=== PATIENT | male | born 1950 | race Caucasian/White ===

== ENCOUNTER 2018-02-04 22:10 | Inpatient (IN) | payer MEDICARE ==
[2018-02-05 01:45] VITALS: BMI 26.4
[2018-02-05] MEDS ORDERED: Acetaminophen 1,000 MG in Premix Bag 1 BAG IVPB PRN ×2 (01:53→10:30)
[2018-02-05] MEDS ORDERED: Ketorolac Tromethamine 30 MG/ML VIAL IVP PRN (01:54)
[2018-02-05] MEDS: Lactated Ringer's 1,000 ML IV SCH ×2 (02:03→11:56)
[2018-02-05 05:45] LABS: #Eosinphils 0.1 thou/uL (0.0-0.7); #Lymphocytes 0.9 thou/uL (1.20-3.40); #Monocytes 1.4 thou/uL (0.11-0.59); #Neutrophils 11.1 thou/uL (1.40-6.50); %Basophils 0.3 % (0.0-1.0); %Eosinophils 0.6 % (0.0-10.0); %Lymphocytes 6.8 % (21.0-51.0); %Monocytes 10.2 % (0.0-10.0); %Neutrophils 82.2 % (42.0-75.0); Hemoglobin 10.2 g/dL (14.0-18.0); Mean Corpuscular HGB CONC 32.6 g/dL (32.0-36.0); Mean Corpuscular Hemoglobin 27.8 pg (27.0-31.0); Mean Corpuscular Volume 85.2 fL (78.0-98.0); Mean Platelet Volume 5.9 fL (7.4-10.4); Platelet Count 441 thou/uL (130-400); RBC Distribution Width 13.1 % (11.5-14.5); Red Blood Cell (RBC) Count 3.66 mill/uL (4.70-6.10); White Blood Cell (WBC) Count 13.4 thou/uL (4.8-10.8)
[2018-02-05] MEDS ORDERED: Prevnar 13-Val Conj/PF 0.5 ML SYRINGE IM ONE (09:00)
[2018-02-05] MEDS: metroNIDAZOLE 750 MG in Admixture Fee 1 EACH IVPB SCH ×2 (09:28→17:12)
[2018-02-05] MEDS ORDERED: Fentanyl 100 MCG/2 ML VIAL ONE ×3 (09:30→11:12)
[2018-02-05] MEDS ORDERED: Propofol 500 MG/50 ML VIAL ONE (09:33)
[2018-02-05] MEDS ORDERED: Levofloxacin 500 mg/D5W 100 ml Premix Bag ONE (09:41)
[2018-02-05] MEDS ORDERED: metroNIDAZOLE 500 MG/100 ML BAG ONE (09:41)
[2018-02-05] MEDS ORDERED: Midazolam HCl 2 mg/2 ml Vial ONE (09:50)
[2018-02-05] MEDS ORDERED: Bupivacaine HCl 0.5%/Epinephrine 1:200,000/PF 30 ml Vial ONE (10:09)
[2018-02-05] MEDS ORDERED: hydrALAZINE 20 MG/ML VIAL SLOW IVP PRN (10:10)
[2018-02-05] MEDS ORDERED: Lidocaine 2% w/Epinephrine 1:200K 20 ML VIAL ONE (10:10)
[2018-02-05] MEDS ORDERED: Lidocaine 2% PF Inj 2 ML VIAL ONE ×2 (10:11)
[2018-02-05] MEDS ORDERED: Ondansetron ODT 8 MG TAB PO PRN (10:13)
[2018-02-05] MEDS ORDERED: Ondansetron ODT 8 MG TAB SL PRN (10:13)
[2018-02-05] MEDS ORDERED: GoLYTELY 4,000 ml Bottle PO SCH (10:15)
[2018-02-05] MEDS ORDERED: Non-Formulary Item 1 EACH (Albuterol Sulfate [Proair Respiclick] 90 MCG) IH PRN (10:17)
[2018-02-05] MEDS ORDERED: Potassium Bicarbonate/Cit Ac 25 MEQ TAB PO PRN (10:17)
--- NOTE | 2018-02-05 10:18 | HP ---
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 The patient for the past 6 weeks h as suffered anorexia, a 15 pound weight loss, alteration in his bowel habits requiring occasional lax atives. He has never had a colonoscopy. He denies hematochezia. The patient reported to [facility] late yesterday evening. He underwent evaluation noting hemoglobin of 11, white count of 14, BUN 16, creatinine 1, sodium 135, potassium 4.3, normal liver function test. He had a CAT sca n of the abdomen and pelvis revealing a large mass, circumferential thickened wall sigmoid colon with involvement of the left groin and involvement of the dome, right dome anterior bladder infiltrated v ersus abutting. The patient was noted to have a mass in his left groin, which is what precipitated h is emergency room visit. The patient was told that he needed to be transferred to [place]. However, the patient did not want to do that. Thus transferred to [facility] for his care. At our facili ty this morning his hemoglobin is 10. CA level was 6. I personally reviewed his CAT scan with the r adiologist, Dr. Potter, revealing the above findings. He does have cholelithiasis in addition. There is no evidence of metastasis. There is subclinical pertinent lymphadenopathy less than 0.5 cm of que stionable significance. ALLERGIES: PENICILLIN. He was told he was allergic to PENICILLIN as a child. He does not know his reaction. He questions this. TOBACCO: None. ALCOHOL: None. MEDICATIONS: Potassium bicarbonate 25 mEq p.r.n., multivitamins daily, fish oil daily, calcium ascor petros daily, Flomax 0.4 mg a day, lisinopril/hydrochlorothiazide, Prinzide 20/12.5 mg a day, Singulair daily, aspirin 81 mg a day, albuterol sulfate 90 mcg a day p.r.n., Advair Diskus inhaler b.i.d. PAST SURGICAL HISTORY: Right inguinal hernia repair when 2 years of age, right shoulder ORIF. PAST MEDICAL HISTORY: Noncontributory except for hypertension and asthma. REVIEW OF SYSTEMS: Ten point noncontributory. FAMILY HISTORY: Noncontributory. Perhaps a grandfather had colon cancer. He is unsure. PHYSICAL EXAMINATION: VITAL SIGNS: Height 5 foot 11, 189 pounds, 26 BMI, 98.4 degrees 85, 93/53. LUNGS: Clear to auscultation. CARDIAC: Regular rate and rhythm without murmur or gallop. ABDOMEN: Soft, nontender, no palpable masses in his left groin, there is a fluctuant tender mass wit h overlying redness consistent with an abscess. EXTREMITIES: Palpable pulses. No ankle edema. LYMPH: No lymphadenopathy in neck, groins, axilla. SKIN: Normal. Sclerae are normal. NEURO: Neurologically intact without focal deficit. LABORATORIES: As noted above. CEA level this hospitalization 6.6. ASSESSMENT AND PLAN: 1. Large sigmoid mass. I have reviewed this with our local radiologist, Dr. Potter. This mass is enh ancing, suspicious for malignancy. It does have inflammatory changes contiguous with the left groin where he has an abscess. This was appreciated clinically. The patient has extension of the sigmoid colon mass to the dome of the bladder on the right, infiltrative versus abutting, difficult to tell. He has a renal cyst. He has gallstones. 2. Cholelithiasis. 3. Renal cyst. 4. History of PENICILLIN allergy, reaction uncertain as noted above. 5. Asthma. 6. Hypertension. 7. No prior history of colonoscopy. PLAN: Recommend incision and drainage left groin abscess now. Would recommend consultation with Uro logy and I have talked to Dr. Watts regarding planning cystoscopy, stent placement and possible help with dealing with the bladder during the resection. We will consult Gastroenterology, Dr. Ocampo, fo r a colonoscopy. Prior we will give him a bowel prep today, keep him on clear liquids planning colon oscopy tomorrow. I have discussed with the patient's who is a surgical nurse and explained the situation to her. It is uncertain whether his gallstones are symptomatic or not. We will discuss th at with him, but today they seem asymptomatic and probably incidental. I have discussed with the pat joanne and his thoroughly the risks of operations and described including infection, bleeding, reo peration, anastomotic leakage, possibility, although remote of a colostomy and the uncertainty of whe ther this is malignancy or inflammatory, but certainly radiological picture suggest inflammatory. If malignant, there is no evidence of metastatic disease. CA level is slightly elevated only 6.6.
[2018-02-05] MEDS ORDERED: Ibuprofen 600 MG TAB PO PRN (10:30)
[2018-02-05] MEDS ORDERED: Acetaminophen 500 MG TAB PO PRN (10:30)
[2018-02-05] MEDS ORDERED: PACU-Morphine 4MG/ML VIAL SLOW IVP PRN (10:40)
[2018-02-05] MEDS ORDERED: HYDROmorphone 2 MG/ML VIAL SLOW IVP PRN (10:40)
[2018-02-05] MEDS ORDERED: Ondansetron HCl/PF 4 MG/2 ML Vial IVP PRN (10:40)
[2018-02-05] MEDS ORDERED: Meperidine HCl/PF 25 MG/ML VIAL SLOW IVP PRN (10:40)
[2018-02-05] MEDS ORDERED: Promethazine HCl 25 MG/ML VIAL IM PRN (10:40)
[2018-02-05] MEDS ORDERED: Promethazine HCl 25 MG/ML VIAL SLOW IVP PRN (10:40)
[2018-02-05] MEDS ORDERED: Morphine Sulfate 2 MG/ML SYRINGE SLOW IVP PRN (10:40)
[2018-02-05] MEDS ORDERED: PROVENTIL INHALER 6.7 G (200 INHALATIONS) INH PRN (10:50)
--- NOTE | 2018-02-05 11:21 | OP ---
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 PROCEDURE: Incision and drainage of deep left lower quadrant abdominal wall abscess. SURGEON: Dr. Yosi Ellison ANESTHESIA: Sedation, local 0.5% Marcaine with epinephrine 30 mL mixed with ____ 10 mL. PROCEDURE: The patient was taken to the operating room where under sedation, his abdomen was clipped of hair, prepared with ChloraPrep, draped in routine fashion. Local anesthetic infiltrated into ski n and subcutaneous tissue. Incision made in left lower quadrant transversely for about 4-5 cm nestor d down skin and subcutaneous tissue, deep fascia draining a thick, purulent foul-smelling purulent ma terial. This wound was irrigated and gauze dressing applied, left open. We will observe it. If he has stool draining from it later he may need an ostomy bag. If, however, it does not, he may need a wound VAC tomorrow.
[2018-02-05] MEDS: traMADol HCl 50 MG TAB PO PRN (12:58)
--- NOTE | 2018-02-05 14:55 | RAD ---
TWO VIEWS CHEST: HISTORY: Colon mass. Preoperative chest radiograph. FINDINGS: PA and lateral views of the chest are obtained. Surgical clips are seen in the left hilar region. The lungs are well aerated. No evidence of acute intrathoracic abnormality is seen. No evidence of effusions, pneumonia, or pneumothorax is seen. Right shoulder surgical screws are in place. IMPRESSION: Unremarkable 2 views chest. POS: [facility]
[2018-02-05] MEDS ORDERED: PHENYLEPHRINE-NS 100 MCG/ML 10 ML SYRINGE ONE (16:47)
[2018-02-05] MEDS ORDERED: PROPOFOL 200 MG/20 ML VIAL ONE (16:47)
[2018-02-05] MEDS ORDERED: Lidocaine 1% PF 5 ML VIAL ONE (16:47)
[2018-02-05] MEDS: Mometasone/Formoterol 120 PUFF INHALER INH SCH (18:27)
[2018-02-05] MEDS ORDERED: SALMETEROL PO SCH (21:00)
[2018-02-05] MEDS ORDERED: FLUTICASONE PO SCH (21:00)
[2018-02-05] MEDS ORDERED: Enoxaparin Sodium 40 MG/0.4 ML SYRINGE SC SCH (21:00)
[2018-02-05] MEDS: Aspirin 81 mg Enteric Coated Tablet PO SCH (22:28)
[2018-02-05] MEDS: Famotidine 20 MG TAB PO SCH (22:28)
[2018-02-05] MEDS: Montelukast Sodium 10 mg Tablet PO SCH (22:29)
[2018-02-05] MEDS: Tamsulosin HCl 0.4 MG CAP PO SCH (22:29)
--- NOTE | 2018-02-05 23:24 | CON ---
DATE OF CONSULTATION: 02/05/2018 Consultation is requested for concern for bladder findings related to abnormal CT scan. HISTORY OF PRESENT ILLNESS: The patient is a 67-year-old male, who 4 weeks ago , had significant constipation and took magnesium citrate and seemed to get back to his relative normal bowel movements, thereafter, but had significant left-sided pain more recently that worsened to the point of being presenting to the ER. He had also just not felt well over the last few days and has had decreased appetite and lost weight recently. Normally has frequency q.2-3 hours, nocturia x3 to 4. He is already on tamsulosin and he does think this helps his urinary flow, but he denies any hesitancy, weak stream, incomplete emptying. He has never had hematuria, infections of the urine, retention, leakage, or stones. PAST MEDICAL HISTORY: Significant for asthma versus chronic obstructive pulmonary disease and hypertension. PAST SURGICAL HISTORY: Includes right inguinal hernia at age 2 and a right shoulder surgery as well as tonsils. ALLERGIES: PENICILLIN. He does not know the reaction, as this was as a kid. MEDICATIONS: Include potassium, multivitamin, fish oil, calcium, Flomax, lisinopril/hydrochlorothiazide, Prinzide/hydrochlorothiazide, Singulair, aspirin 81 mg, albuterol as needed, Advair b.i.d. SOCIAL HISTORY: He quit smoking in 1990 and had a 71-[id number]-[id number] history. He only smokes cigars now. He has wine two or three glasses per week. He has no history of IV drug abuse. REVIEW OF SYSTEMS: Really, he has never had a colonoscopy. He has no chest pain, no shortness of breath, no coughing up anything. No numbness or tingling. He has had normal PSAs and DREs and I was able to review these, as he had the results with him from a PSA standpoint. FAMILY HISTORY: Maybe his grandmother had colon cancer. His mother at 75 of renal failure. Dad at 69 of heart attack, neither of them had cancer. PHYSICAL EXAMINATION: VITAL SIGNS: He has been febrile to 101.9, currently 98.4, blood pressure 93/53 , satting 92% on room air. He is in no apparent distress. He is alert and oriented. NECK: He has no JVD or scleral icterus. HEART: Regular rate and rhythm. No murmurs, gallops, or rubs. LUNGS: Clear to auscultation bilaterally. ABDOMEN: Soft, mildly distended, some tenderness in the left lower quadrant and a bandage in the left lower quadrant inguinal area noted, which was not removed. +umbilical hernia noted EXTREMITIES: He had no lower extremity edema. GENITOURINARY: His testes were descended bilaterally without masses. Phallus was circumcised without lesions. He did have condylomatous lesions at the left base of the shaft and right condylomatous lesions noted in the base of the penis , but not really on the shaft. He said he has had these removed multiple times. He has not used creams before. DIGITAL RECTAL EXAM: Revealed an enlarged smooth prostate without nodules, induration, or sidewall fixation. LABORATORY VALUES: Reveal a white count of 13.4, anemia of 10.2 and 31.2. CEA of 6.60. BUN and creatinine are 16 and 1.02. PSAs were 4.7 from 12/11/2017 with percent free of 39.1; 06/01/2016, it was 4.8; 07/29/2014, it was 3.4. CT scan from 02/04/2018 with contrast reviewed personally revealed no hydro, stones, or renal masses. There is bladder thickening near the left lateral dome that extended to the groin collection, but no obvious fistulous tract or air in the bladder noted. He had a huge prostate and then the concern for a sigmoid mass and the collection at the left inguinal region. ASSESSMENT AND PLAN: In assessment, we have a 67-year-old male with concern for inflammatory changes versus mass in the bladder, as well as concern for a sigmoid mass with associated abscess collection, drained by Dr. Ellison already. He also has significant benign prostatic hyperplasia and an enlarged prostate with elevated PSA that is almost definitively related to that as opposed to any concerns for cancer. I ensured he is on tamsulosin and I increased it to twice a day. Knowing that I will have to instrument around the prostate, I am going to start finasteride for the short term and potentially long-term as well. I discussed with Dr. Ellison placing a ureteral stent for his planned sigmoid resection and that if there is any concern that the bladder needed to be resected, I would be available to help. At this point, after reviewing the CAT scan, I am not concerned that the significant portion of the bladder would have to be removed, but this is possible. I am more concerned that he could have a separate bladder mass that would need resection. I can determine this when I place the stent, but hold off on actual transurethral resection in case that portion of the bladder has to be removed during the bowel surgery anyway. Otherwise, a separate procedure for transurethral resection can be done at a later time. TANK
[2018-02-06] MEDS: metroNIDAZOLE 750 MG in Admixture Fee 1 EACH IVPB SCH ×3 (00:09→17:15)
[2018-02-06] MEDS: Lactated Ringer's 1,000 ML IV SCH ×3 (00:09→17:15)
--- NOTE | 2018-02-06 02:23 | CON ---
DATE OF CONSULTATION: 02/05/2018 REASON FOR CONSULTATION: Abnormal GI imaging. CONSULTING PHYSICIAN: Dr. Yosi Ellison. HISTORY OF PRESENT ILLNESS: The patient is a 67-year-old male with past medical history of hypertens ion and asthma presenting with complaints of increased lethargy, anorexia, weight loss and change in bowel habits. He states that he was in his usual state of health until approximately 4-5 weeks ago w hen he began to notice a bulge within the left groin that was initially thought to be an inguinal her martín. Rather than seeing a doctor about this condition, he did not and it worsened over again the las t 4-5 weeks, associated with this was increased anorexia with decreased appetite and change in his ta valerio making food relatively unpalatable as well as a 15-pound weight loss during the same time. He al so notes a change in his bowel habits going from having soft 1-2 bowel movements every day to having approximately 1 bowel movement every 3-4 days that was harder in consistency. With a constellation o f these symptoms, it prompted him to be evaluated by his PCP, but his next appointment with his PCP w as not until February which then prompted him to go to the [facility] at [facility] for further evaluation. While at the Urgent Care Center, he had a CT scan of the abdomen and pelv is performed which showed the presence of a large sigmoid mass with circumferential wall thickening o f the sigmoid colon and involvement of the left groin and dome of the bladder. Given the extensive n ature of this mass, he was subsequently transferred to [facility] for further evaluation. A t the current time, the patient states that he is doing well without significant problems, but does h ave mild left lower quadrant abdominal pain associated with his left groin mass. Currently, he denie s any nausea, vomiting, fevers, chills, GI bleeding, dysphagia, or odynophagia. REVIEW OF SYSTEMS: A 10-category review of systems was obtained with all responses negative except f or the pertinent positives as listed in the HPI. PAST MEDICAL HISTORY: Hypertension, asthma. PAST SURGICAL HISTORY: Right inguinal hernia repair when 2 years old, right shoulder ORIF. FAMILY HISTORY: Possible colonic cancer in his grandfather. No history of colon cancer or polyps in first degree relatives. SOCIAL HISTORY: Denies any tobacco, alcohol or illicit drug use. OUTPATIENT MEDICATIONS: Reviewed. ALLERGIES: PENICILLIN. PHYSICAL EXAMINATION: VITAL SIGNS: Temperature 99.2, pulse 95, blood pressure 100/62, respiratory rate 16, satting 93% on room air. GENERAL: Patient is lying in bed in no acute distress. Alert and oriented x4. HEENT: Normocephalic, atraumatic. NECK: Supple. No JVD or scleral icterus noted. CARDIOVASCULAR: Regular rate and rhythm with no discernible murmurs, gallops or rubs. RESPIRATORY: Mild inspiratory wheezes were heard in all lung jackson with resistance to air flow also auscultated as well. No discernible crackles. ABDOMEN: Normoactive bowel sounds, soft, nondistended. Tenderness to palpation in the left lower qu adrant. EXTREMITIES: No cyanosis, clubbing or edema. LABORATORY DATA: CBC with a white blood cell count of 13.4, hemoglobin 10.2, hematocrit 31.2 and jo ann telets 441. CEA antigen elevated at 6.6. IMAGING DATA: Review of the CT scan performed at [facility] revealed a large mass which along with circumferential wall thickening of the sigmoid colon involving the left groin and dome of the bladder. ASSESSMENT AND PLAN: The patient is a 67-year-old male with past medical history of hypertension and asthma presenting with abnormal GI imaging. Abnormal gastrointestinal imaging. The patient is presenting with a history of increased lethargy, anorexia, decreased physical activity tolerance and change in bowel habits that has been slowly worsening over the last 4-5 weeks. Upon e valuation in the Urgent Care Center in [facility], he was noted to have a large mass with in the sigmoid colon that was affecting the left groin/anterior abdominal wall as well as possible in volvement of the dome of the bladder. He was subsequently transferred to [facility] for fur ther evaluation. At this point, given his elevated CEA and imaging findings on CT, this is highly shaikh spicious for a colonic malignancy and will need colonoscopy for further evaluation/diagnosis. RECOMMENDATIONS: 1. We will place the patient on a clear liquid diet today with plans to make him n.p.o. at midnight in preparation for the procedure tomorrow. 2. We will plan for colonoscopy tomorrow morning for evaluation of the sigmoid colon mass. 3. Further recommendations to follow colonoscopy. We will continue to follow. Please call with any questions.
[2018-02-06 06:23] LABS: #Eosinphils 0.2 thou/uL (0.0-0.7); #Lymphocytes 0.8 thou/uL (1.20-3.40); #Neutrophils 7.8 thou/uL (1.40-6.50); %Basophils 0.3 % (0.0-1.0); %Eosinophils 2.3 % (0.0-10.0); %Lymphocytes 8.3 % (21.0-51.0); %Monocytes 9.9 % (0.0-10.0); %Neutrophils 79.2 % (42.0-75.0); Hemoglobin 9.2 g/dL (14.0-18.0); Mean Corpuscular HGB CONC 32.3 g/dL (32.0-36.0); Mean Corpuscular Hemoglobin 27.6 pg (27.0-31.0); Mean Corpuscular Volume 85.6 fL (78.0-98.0); Mean Platelet Volume 6.3 fL (7.4-10.4); Platelet Count 415 thou/uL (130-400); RBC Distribution Width 13.1 % (11.5-14.5); Red Blood Cell (RBC) Count 3.32 mill/uL (4.70-6.10); White Blood Cell (WBC) Count 9.8 thou/uL (4.8-10.8)
[2018-02-06 06:44] LABS: ALT (SGPT) 48 U/L (8-55); AST (SGOT) 21 U/L (5-34); Albumin 2.9 g/dL (3.4-4.8); Alkaline Phosphatase 60 U/L (40-150); Anion Gap 11 mmol/L (10-20); BUN (Urea Nitrogen) 24 mg/dL (8.4-25.7); Bilirubin, Total 0.6 mg/dL (0.2-1.2); Calc. Creatinine Clearance 79 mL/min (70-130); Calcium 8.6 mg/dL (7.8-10.44); Carbon Dioxide 27 mmol/L (23-31); Chloride 102 mmol/L (98-107); Estimated GFR-MDRD 67; Globulin 2.4 g/dL (2.4-3.5); Glucose 132 mg/dL (80-115); Potassium 3.8 mmol/L (3.5-5.1); Protein, Total 5.3 g/dL (5.8-8.1); Sodium 136 mmol/L (136-145)
[2018-02-06 07:21] LABS: Bacteria/HPF None Seen HPF (None Seen); Hyaline Casts/LPF 7-10 HYALINE CAST LPF (0-3 Hyaline); Pathc Cast-AUWi Flag 0.72 (0-2.49); RBC/HPF 0-3 HPF (0-3); Squamous Epithelial None Seen HPF (0-3)
[2018-02-06] MEDS: Mometasone/Formoterol 120 PUFF INHALER INH SCH ×2 (07:44→18:58)
[2018-02-06] MEDS ORDERED: Tamsulosin HCl 0.4 MG CAP PO SCH (09:00)
[2018-02-06] MEDS ORDERED: ASCORBATE CALCIUM 500 MG PO SCH (09:00)
[2018-02-06] MEDS: Tamsulosin HCl 0.4 MG CAP PO SCH ×2 (09:18→21:10)
[2018-02-06] MEDS: Finasteride 5 MG TAB PO SCH (09:18)
[2018-02-06] MEDS: Famotidine 20 MG TAB PO SCH ×2 (09:19→21:07)
[2018-02-06] MEDS: Erythromycin Base 250 MG TAB PO SCH ×2 (09:20→14:03)
[2018-02-06] MEDS: Neomycin 500 mg Tablet PO SCH ×2 (09:20→16:11)
[2018-02-06] MEDS: Multivitamin W/ Minerals 1 TAB PO SCH (09:20)
--- NOTE | 2018-02-06 09:37 | EKG ---
Test Reason : PROP Blood Pressure : / mmHG Vent. Rate : 082 BPM Atrial Rate : 082 BPM P-R Int : 120 ms QRS Dur : 094 ms QT Int : 374 ms P-R-T Axes : 070 001 052 degrees QTc Int : 436 ms Normal sinus rhythm Normal ECG No previous ECGs available Confirmed by WALDEMAR JIMENEZ ([id number]) on 02/06/2018 9:37:02 AM Referred By: CAITIE Confirmed By:WALDEMAR JIMENEZ
--- NOTE | 2018-02-06 11:30 | PRG ---
DATE OF SERVICE: 02/06/2018 HISTORY OF PRESENT ILLNESS: Levy Mcginnis is a 67-year-old male patient doing well today. He has no new complaints. He has almost completed his bowel prep for his colonoscopy today. Dr. Watts has s een him. PHYSICAL EXAMINATION: VITAL SIGNS: Temperature 99.9 degrees, 80, 108/66. LUNGS: Clear to auscultation. CARDIAC: Regular rate and rhythm without murmur or gallop. ABDOMEN: Soft, nontender, slightly distended and tympanitic from his bowel prep. He has been having some liquid slightly brown flecked stool. Dressing left lower quadrant is relatively dry. ASSESSMENT AND PLAN: 1. Colocutaneous fistula with abscess, status post incision and drainage yesterday. It is not drain ing a lot. 2. Colon mass undergoing colonoscopy today. Colon mass contiguous or invading the bladder. PLAN: Cystoscopy and ureteral stent placement tomorrow with Dr. Watts and laparotomy, colon resecti on plus or minus colostomy or protective diverting ileostomy if necessary indicated procedures. He m ay need a central line. We will hold his Lovenox tonight to make it safe for him to have an epidural in the morning. Continue SCDs. Await colonoscopy. Neomycin and erythromycin p.o., complete his anirudh wel prep for tomorrow.
[2018-02-06] MEDS ORDERED: Promethazine HCl 25 MG/ML VIAL IM PRN (16:28)
[2018-02-06] MEDS ORDERED: Promethazine HCl 25 MG/ML VIAL SLOW IVP PRN (16:28)
[2018-02-06] MEDS ORDERED: PHENYLEPHRINE-NS 100 MCG/ML 10 ML SYRINGE ONE (16:51)
[2018-02-06] MEDS ORDERED: Lidocaine 1% PF 5 ML VIAL ONE (16:51)
[2018-02-06] MEDS ORDERED: ePHEDrine/0.9% NaCl/PF SYRINGE 50 mg/10 ml ONE (16:51)
[2018-02-06] MEDS ORDERED: PROPOFOL 200 MG/20 ML VIAL ONE (16:51)
[2018-02-06] MEDS: Aspirin 81 mg Enteric Coated Tablet PO SCH (21:08)
[2018-02-06] MEDS: Polyethylene Glycol 3350 17 GM Packet PO SCH (21:08)
[2018-02-06] MEDS: Enoxaparin Sodium 40 MG/0.4 ML SYRINGE SC SCH (21:09)
[2018-02-06] MEDS: Montelukast Sodium 10 mg Tablet PO SCH (21:09)
[2018-02-06] MEDS: traMADol HCl 50 MG TAB PO PRN (21:10)
--- NOTE | 2018-02-06 21:46 | OP ---
DATE OF PROCEDURE: 02/06/2018 PROCEDURE: Colonoscopy with snare polypectomy and biopsy and submucosal injection of tattoo. PREOPERATIVE DIAGNOSIS: Abnormal imaging of the colon. PROCEDURE IN DETAIL: Informed consent was obtained from the patient. He was sedated with total intr avenous anesthesia. The rectal exam was performed and revealed a significant amount of stool in the rectal vault, which was disimpacted. The colonoscope was advanced to the cecum without significant d ifficulty. The ileocecal valve and appendiceal orifice were clearly identified. There was solid sto ol in the sigmoid colon and rectum and scattered throughout the proximal colon as well. There was a large mass in the sigmoid colon at 35 cm, which was circumferential and necrotic. Multiple biopsies were obtained. There was a 2 cm flat smooth patch with surrounding puckering or dimpling of the venkata cent folds. Biopsies were obtained to rule out a second malignancy or neoplastic process in this are a. A tattoo was placed on either side adjacent to the lesion. This lesion would not be endoscopical ly resectable. There was severe diverticulosis throughout the colon. There was a 1.2 cm pedunculate d polyp in the distal sigmoid at 19 cm, which was removed by hot snare. A 5 mm polyp was removed fro m the distal rectum by hot snare. Retroflexed views in the rectum were incomplete due to stool in th e rectal vault that still could not be cleared; however, half of the rectum at least was normal. IMPRESSION: 1. Large mass in the sigmoid at 35 cm, which was circumferential and necrotic. Multiple biopsies ob tained. 2. A 2 cm flat smooth patch with surrounding puckering of the adjacent folds was biopsied to rule ou t a second malignancy or neoplastic process in the proximal to mid transverse colon. Tattoos were pl aced adjacent on either side of the lesion. 3. Severe diverticulosis with poor prep in the rectum and sigmoid colon scattered throughout the col on. 4. A 5 mm polyp in the rectum removed by hot snare. 5. A 1.2 cm pedunculated distal sigmoid polyp removed by hot snare at 19 cm. RECOMMENDATIONS: 1. Clear liquids. 2. Await histopathology. 3. Given the poor prep in areas, a completion colonoscopy should be performed in the future after re section of the malignancy. In the meantime, I would wait on the biopsies prior to surgery.
[2018-02-07] MEDS: metroNIDAZOLE 750 MG in Admixture Fee 1 EACH IVPB SCH ×3 (01:41→16:57)
[2018-02-07] MEDS: Mometasone/Formoterol 120 PUFF INHALER INH SCH ×2 (06:50→18:36)
[2018-02-07] MEDS: traMADol HCl 50 MG TAB PO PRN ×3 (07:10→21:57)
[2018-02-07] MEDS: Polyethylene Glycol 3350 17 GM Packet PO SCH ×2 (08:45→20:51)
[2018-02-07] MEDS: Finasteride 5 MG TAB PO SCH (08:46)
[2018-02-07] MEDS: Famotidine 20 MG TAB PO SCH ×2 (08:47→20:50)
[2018-02-07] MEDS: Tamsulosin HCl 0.4 MG CAP PO SCH ×2 (08:47→20:50)
[2018-02-07] MEDS: Multivitamin W/ Minerals 1 TAB PO SCH (08:47)
--- NOTE | 2018-02-07 11:44 | PRG ---
DATE OF SERVICE: 02/07/2018 Ms. Mcginnis is doing well today. Dr. Mesa performed a colonoscopy years today revealing the 90% obst ructive mass visibly endoscopically consistent with malignancy. With his high grade obstruction I wi ll keep him on liquids. We will ask Dietary to see him regarding high protein supplements considerin g his lactose intolerance. I have asked his to bring in a protein liquid supplements at home. The patient has been suffering anorexia and is complacent with his liquid diet. In addition, I have ordered this to maintain some degree of bowel prep. Today is Monday. Plan Monday surgery. I hav e discussed with Dr. Watts. We will plan laparotomy, epidural general anesthesia, sigmoid colon res ection, bladder interventions as indicated. CAT scan revealed cholelithiasis, but the patient is asy mptomatic and will not address that. We will await biopsies from his transverse colon area of concer n and make appropriate decisions. I have discussed this extensively with the patient's and the patient and questions answered. I have reordered Lovenox for today. We will hold that tomorrow nigh t considering his epidural Monday morning. LUNGS: Clear to auscultation. CARDIAC: Regular rate and rhythm without murmur or gallop. ABDOMEN: Soft, nondistended. Umbilical hernia present. Wound VAC left groin from abscess drain.
--- NOTE | 2018-02-07 11:51 | PRG ---
DATE OF SERVICE: 02/07/2018 SUBJECTIVE: The patient is sleeping comfortable and easily awakened. He is feeling otherwise okay a nd has no complaints. We discussed I started him on the tamsulosin and finasteride related to his pr ostate. PHYSICAL EXAMINATION: VITAL SIGNS: He has been afebrile with a T-max of 98.9, satting 94% on room air. Blood pressure has been stable. His output has not been measured. GENERAL: On exam he is sleeping comfortably in the bed in no distress. Cytology came back as benign showing only inflammatory changes from the urine. ASSESSMENT AND PLAN: We have a 67-year-old male with a sigmoid mass and now concern after a colonosc opy for a transverse colon mass as well and for this reason, the procedure was delayed in order to wa it for this path as that may be a second resection that would be required. I reviewed this with Dr. Ellison and will plan for surgery on Monday. I reviewed this with the patient and he is understanding and in agreement. We will plan for cystoscopy, ureteral stent placement on the left for intraoperat anabel aid for his bowel resection and I will be available to help if there are any concerns regarding t he bladder.
--- NOTE | 2018-02-07 11:55 | PRG ---
DATE OF SERVICE: 02/06/2018 Patient was just about to have his colonoscopy when I saw him and reviewed the plan for me placing a stent prior to Dr. Ellison's procedure and then potentially helping with any concern related to a blad ajay repair that might be necessary. I then reviewed this with his as well and answered all of h er questions. We reviewed how the CT scan shows a definite inflammation, which could represent eithe r a mass or inflammatory changes from the exterior, given that this is also the area of inflammation and infection that tracks to the groin and how I would anticipate looking in the bladder to evaluate this area, and if it simply looks like inflammation, just place a stent and monitor. If there is any concern for a primary bladder lesion, then I would let Dr. Ellison proceed with his part and determin e whether there was any need for resection of the bladder, and of course include this portion as well at that time. Otherwise, further transurethral procedure could be done after he has healed from his bowel surgery. His white count came down to 9.8. His creatinine has been good at 1.09 and a urinalysis showed infla mmation only, no bacteria, no red blood cells; however, this was taken on antibiotics, as he has been getting Flagyl and Levaquin at this time. Cytology is pending. I will continue to follow along.
[2018-02-07] MEDS: Ondansetron ODT 4 MG TAB PO PRN (14:32)
--- NOTE | 2018-02-07 16:22 | PQF ---
DINA DIXON RICHARD D MD [id number] [facility] B- [id number] CLINICAL DOCUMENTATION IMPROVEMENT CLARIFICATION FORM: ICD-10 Updated PLEASE DO AN ADDENDUM TO THE PROGRESS NOTE WITH ANY DOCUMENTATION UPDATES OR ADDITIONS AND CARRY THROUGH TO DC SUMMARY. THANK YOU. Date: 02/07/2018 ATTN: DR. BLOOD Please exercise your independent, professional judgment in responding to the clarification form. Clinical indicators are provided on the bottom of this form for your review Please check appropriate box(s): [ ] Protein Calorie Malnutrition: [ ] Mild [ ] Moderate [ ] Other Malnutrition (please specify) __ [ ] Underweight without malnutrition [ ] Other diagnosis [ ] Unable to determine In addition, please specify: Present on Admission (POA): [ ] Yes [ ] No [ ] Unable to determine CLINICAL INDICATORS - SIGNS / SYMPTOMS / LABS Two or More of the Following: Unintentional Insufficient Energy Intake--> H&P 6 weeks has suffered anorexia Weight Loss--> -7.4 % over past ~6 weeks per 02/07 RD note, 15# weight loss per H&P RISK FACTORS Change in appetite / nausea / vomiting / diarrhea--> colon mass, decreased appetite, weight loss H&P Inability to consume adequate caloric intake --> 02/07 NPO per orders TREATMENT: Dietary consult 02/07 per orders Nutritional supplements--> Ensure TID 02/06 per orders Moderate Malnutrition (in acute illness) Energy Intake: <75% of estimated energy requirement for > 7 days Weight Loss: 1-2%/1 week; 5%/ 1 month; 7.5%/3 months Other: mild body fat loss; mild muscle mass loss; mild fluid accumulation; Severe Malnutrition (in acute illness) Energy Intake: < 50% of estimated energy requirement for > 5 days Weight Loss: >1-2%/1 week; >5%/1 month; >7.5%/3 months Other: moderate body fat loss; moderate muscle mass loss; moderate- severe fluid accumulation; measurably reduced size painter strength Moderate Malnutrition (in chronic illness) Energy Intake: <75% of estimated energy requirement for >1 month Weight Loss: 5%/1 month; 7.5%/3 months; 10%/6 months; 20%/1 year Other: mild body fat loss; mild muscle mass loss; mild fluid accumulation Severe Malnutrition (in chronic illness) Energy Intake: <75% of estimated energy requirement for >1 month Weight Loss: >5%/1 month; >7.5%/3 months; >10%/6 months; >20%/1 year Other: severe body fat loss; severe muscle mass loss; severe fluid accumulation ; measurably reduced size painter strength THANK YOU, GANESH (This form is maintained as a part of the permanent medical record) 2015 [employer] All Rights Reserved Ganesh Deluca RN, BSN, CCDS [email or web address] [phone] MTDD
--- NOTE | 2018-02-07 18:41 | PRG ---
DATE OF SERVICE: 02/07/2018 REASON FOR CONSULTATION: Abnormal GI imaging, probable colonic malignancy. SUBJECTIVE: The patient underwent colonoscopy yesterday with no immediate perioperative events. The colonoscopy showed a lesion within the sigmoid colon consistent with probable malignancy; however, t here was one area within the transverse colon that showed smoothness of the colonic mucosa with loss of haustra and a focal area concerning for another disease process. Biopsies for both are pending at this time. Today, the patient states that he is doing well with no acute events or problems overnight. Currentl y, denies any nausea, vomiting, fevers, chills, GI bleeding, dysphagia or odynophagia. OBJECTIVE: VITAL SIGNS: Temperature 98.1, pulse 75, blood pressure 129/82, respiratory rate 16, satting 95% on room air. GENERAL: Patient is lying in bed in no acute distress. Alert and oriented x4. CARDIOVASCULAR: Regular rate and rhythm. LUNGS: Clear to auscultation bilaterally. ABDOMEN: Normoactive bowel sounds, soft, nondistended. Tenderness to palpation in the left lower qu adrant. EXTREMITIES: No cyanosis, clubbing or edema. LABORATORY DATA: No current studies are available for review. IMAGING DATA: Colonoscopy performed on February 06, 2018 with the findings as described above in the subjective. ASSESSMENT AND PLAN: The patient is a 67-year-old male with past medical history of hypertension and asthma presenting with abnormal GI imaging and colonoscopy findings consistent with a colonic malign leann. Abnormal GI imaging/colonic malignancy. The patient is presenting with a 4-week history of increased lethargy, anorexia, decreased physical activity tolerance and change in bowel habits that culminated in the patient being seen [facility] with imaging consistent with a large mass in the sig moid colon. Patient underwent colonoscopy on 02/06/2018 with the finding of a large circumferential near obstructive mass within the sigmoid colon as well as an area within the transverse colon concern ing for malignancy. At this point, biopsies are pending with the plan for patient to undergo s urgery on Monday after the results of the biopsies are known. RECOMMENDATIONS: 1. Would recommend following up on biopsy results as this could determine extensive resection. 2. Defer to General Surgery Service as timing for surgical resection of the sigmoid mass. 3. Pain control per Primary team. At this time, surgical resection is the definitive modality of choice. We have nothing further to of leslie. We will sign off at this time. Please call with any questions.
[2018-02-07] MEDS: Aspirin 81 mg Enteric Coated Tablet PO SCH (20:49)
[2018-02-07] MEDS: Enoxaparin Sodium 40 MG/0.4 ML SYRINGE SC SCH (20:49)
[2018-02-07] MEDS: Montelukast Sodium 10 mg Tablet PO SCH (20:50)
[2018-02-08] MEDS: metroNIDAZOLE 750 MG in Admixture Fee 1 EACH IVPB SCH ×3 (00:45→17:23)
[2018-02-08] MEDS: Ondansetron ODT 4 MG TAB PO PRN (03:42)
[2018-02-08] MEDS: Mometasone/Formoterol 120 PUFF INHALER INH SCH ×2 (06:17→17:57)
[2018-02-08] MEDS: Multivitamin W/ Minerals 1 TAB PO SCH (09:09)
[2018-02-08] MEDS: Finasteride 5 MG TAB PO SCH (09:10)
[2018-02-08] MEDS: Famotidine 20 MG TAB PO SCH ×2 (09:10→20:53)
[2018-02-08] MEDS: Tamsulosin HCl 0.4 MG CAP PO SCH ×2 (09:11→20:53)
[2018-02-08] MEDS: Polyethylene Glycol 3350 17 GM Packet PO SCH ×2 (09:13→20:55)
[2018-02-08] MEDS: traMADol HCl 50 MG TAB PO PRN (09:39)
[2018-02-08] MEDS: Ondansetron HCl/PF 4 MG/2 ML Vial IVP PRN ×2 (10:24→15:33)
--- NOTE | 2018-02-08 11:33 | PQF ---
DINA DIXON RICHARD D MD [id number] [facility] B- [id number] [id number] CLINICAL DOCUMENTATION IMPROVEMENT CLARIFICATION FORM: ICD-10 Updated PLEASE DO AN ADDENDUM TO THE PROGRESS NOTE WITH ANY DOCUMENTATION UPDATES OR ADDITIONS AND CARRY THROUGH TO DC SUMMARY. THANK YOU. Date: 02/08/18 ATTN: Dr. Ellison Please exercise your independent, professional judgment in responding to the clarification form. Clinical indicators are provided on the bottom of this form for your review Please check appropriate box(s): [ ] Protein Calorie Malnutrition: [ ] Mild [ ] Moderate [ ] Other Malnutrition (please specify) __ [ ] Underweight without malnutrition [ ] Other diagnosis [ ] Unable to determine In addition, please specify: Present on Admission (POA): [ ] Yes [ ] No [ ] Unable to determine CLINICAL INDICATORS - SIGNS / SYMPTOMS / LABS Two or More of the Following: Unintentional Insufficient Energy Intake--> H&P 6 weeks has suffered anorexia Weight Loss--> -7.4 % over past ~6 weeks per 02/07 RD note, 15# weight loss per H&P RISK FACTORS Change in appetite / nausea / vomiting / diarrhea--> colon mass, decreased appetite, weight loss H&P Inability to consume adequate caloric intake --> 02/07 NPO PER ORDERS TREATMENT: Dietary consult 02/07 per orders Nutritional supplements--> Ensure TID 02/06 per orders Thank you, Sophie Moderate Malnutrition (in acute illness) Energy Intake: <75% of estimated energy requirement for > 7 days Weight Loss: 1-2%/1 week; 5%/ 1 month; 7.5%/3 months Other: mild body fat loss; mild muscle mass loss; mild fluid accumulation; Severe Malnutrition (in acute illness) Energy Intake: < 50% of estimated energy requirement for > 5 days Weight Loss: >1-2%/1 week; >5%/1 month; >7.5%/3 months Other: moderate body fat loss; moderate muscle mass loss; moderate- severe fluid accumulation; measurably reduced enrollment services dean strength Moderate Malnutrition (in chronic illness) Energy Intake: <75% of estimated energy requirement for >1 month Weight Loss: 5%/1 month; 7.5%/3 months; 10%/6 months; 20%/1 year Other: mild body fat loss; mild muscle mass loss; mild fluid accumulation Severe Malnutrition (in chronic illness) Energy Intake: <75% of estimated energy requirement for >1 month Weight Loss: >5%/1 month; >7.5%/3 months; >10%/6 months; >20%/1 year Other: severe body fat loss; severe muscle mass loss; severe fluid accumulation ; measurably reduced enrollment services dean strength (This form is maintained as a part of the permanent medical record) 2014 [employer]. All Rights Reserved Sophie Deluca RN, BSN, CCDS [email or web address]
[2018-02-08] MEDS ORDERED: Magnesium Citrate 300 ML BOT PO SCH ×3 (13:15→19:00)
[2018-02-08] MEDS ORDERED: Enoxaparin Sodium 40 MG/0.4 ML SYRINGE SC SCH (13:30)
[2018-02-08] MEDS: Erythromycin Base 250 MG TAB PO SCH ×2 (16:30→20:54)
[2018-02-08] MEDS: Neomycin 500 mg Tablet PO SCH ×2 (16:31→21:00)
[2018-02-08] MEDS ORDERED: Promethazine HCl 25 MG/ML VIAL IM PRN (19:51)
[2018-02-08] MEDS: Montelukast Sodium 10 mg Tablet PO SCH (20:53)
[2018-02-08] MEDS: Aspirin 81 mg Enteric Coated Tablet PO SCH (20:54)
[2018-02-08] MEDS: Lactated Ringer's 1,000 ML IV SCH (20:55)
--- NOTE | 2018-02-08 21:09 | PRG ---
DATE OF SERVICE: 02/08/2018 SUBJECTIVE: Levy Mcginnis is doing well today. His Lovenox is being given early afternoon instead o f night to prepare for epidural tomorrow. Patient does not have any new complaints. He has had some bloating for magnesium citrate ordered. Neomycin, erythromycin, bowel prep have also been ordered. Patient's pathology report is returned. I have talked to Dr. Aguilera regarding this. Patient has a tubular adenoma in the proximal transverse colon/mid transverse colon. There was no dysplasia. Pat ient's biopsy of his sigmoid colon distal to the mass revealed a villous tumor with high grade dyspla yevgeniy, large intestinal tumor mass sigmoid reveals the patient's wound VAC in his left groin is doing w ell, has not had to be changed. It has not had enteric drainage anticipated. OBJECTIVE: LUNGS: Clear to auscultation. CARDIAC: Regular rate and rhythm without murmur or gallop. ABDOMEN: Soft and nontender. ASSESSMENT AND PLAN: Large sigmoid tumor mass extending to the left groin. CEA is 6.6. CAT scan wi thout evidence of metastasis. He has a colocutaneous fistula. The tumor mass radiologically CAT sca n abuts against the bladder, possibly invading it. We will plan completion of two doses of mag citra te today. Dr. Watts will plan cystoscopy and left ureteral stent placement tomorrow. We will plan laparotomy epidural general anesthesia for colon resection and other procedures indicated regarding t he abdominal wall of the bladder. Dr. Watts is available for that if necessary. Patient has gallstones since his transverse colon lesion may be in the area of the gallbladder. Cons ideration for cholecystectomy can be given. We managed the transverse colon synchronous tubular luis armando hollis without dysplasia remains to be determined based on intraoperative findings. This could be wedge d out or segmentally resected. We will await intraoperative assessment. Consideration of cholecyste ctomy could be given and central line placement is considered.
[2018-02-09] MEDS: Erythromycin Base 250 MG TAB PO SCH ×2 (01:20→09:37)
[2018-02-09] MEDS: metroNIDAZOLE 750 MG in Admixture Fee 1 EACH IVPB SCH ×2 (01:20→09:38)
[2018-02-09] MEDS: Neomycin 500 mg Tablet PO SCH ×2 (05:06→15:06)
[2018-02-09] MEDS: Lactated Ringer's 1,000 ML IV SCH ×3 (05:11→20:42)
[2018-02-09 05:21] LABS: #Eosinphils 0.3 thou/uL (0.0-0.7); #Lymphocytes 0.8 thou/uL (1.20-3.40); #Monocytes 0.7 thou/uL (0.11-0.59); #Neutrophils 5.3 thou/uL (1.40-6.50); %Basophils 0.5 % (0.0-1.0); %Eosinophils 4.2 % (0.0-10.0); %Lymphocytes 11.3 % (21.0-51.0); %Monocytes 9.8 % (0.0-10.0); %Neutrophils 74.2 % (42.0-75.0); Hemoglobin 9.8 g/dL (14.0-18.0); Mean Corpuscular HGB CONC 31.7 g/dL (32.0-36.0); Mean Corpuscular Hemoglobin 27.4 pg (27.0-31.0); Mean Corpuscular Volume 86.4 fL (78.0-98.0); Mean Platelet Volume 6.5 fL (7.4-10.4); Platelet Count 411 thou/uL (130-400); RBC Distribution Width 12.9 % (11.5-14.5); Red Blood Cell (RBC) Count 3.58 mill/uL (4.70-6.10); White Blood Cell (WBC) Count 7.2 thou/uL (4.8-10.8)
[2018-02-09 05:38] LABS: Anion Gap 11 mmol/L (10-20); BUN (Urea Nitrogen) 9 mg/dL (8.4-25.7); Calc. Creatinine Clearance 95 mL/min (70-130); Calcium 8.6 mg/dL (7.8-10.44); Carbon Dioxide 26 mmol/L (23-31); Chloride 106 mmol/L (98-107); Estimated GFR-MDRD 84; Glucose 93 mg/dL (80-115); Potassium 3.6 mmol/L (3.5-5.1); Sodium 139 mmol/L (136-145)
[2018-02-09] MEDS: Mometasone/Formoterol 120 PUFF INHALER INH SCH ×2 (06:49→18:19)
[2018-02-09] MEDS ORDERED: Iothalamate Meglumine 60% 50 ML VIAL FS ONE (07:10)
[2018-02-09] MEDS ORDERED: Fentanyl 250 MCG/5 ML VIAL ONE (07:34)
[2018-02-09] MEDS ORDERED: Midazolam HCl 2 mg/2 ml Vial ONE (07:34)
[2018-02-09] MEDS ORDERED: Ropivacaine 0.2% HCl/PF 20 ML ONE (07:57)
[2018-02-09] MEDS: Famotidine 20 MG TAB PO SCH (09:37)
[2018-02-09] MEDS: Tamsulosin HCl 0.4 MG CAP PO SCH ×2 (09:38→20:00)
[2018-02-09] MEDS: Finasteride 5 MG TAB PO SCH (09:38)
[2018-02-09] MEDS: Polyethylene Glycol 3350 17 GM Packet PO SCH (09:38)
[2018-02-09] MEDS: Multivitamin W/ Minerals 1 TAB PO SCH (09:38)
--- NOTE | 2018-02-09 11:15 | OP ---
DATE OF SERVICE: 02/09/2018 PREOPERATIVE DIAGNOSES: Sigmoid mass, transverse colon mass, bladder inflammation. POSTOPERATIVE DIAGNOSIS: Sigmoid mass, transverse colon mass, no mucosal bladder inflammation noted. SURGEON: Karime Watts M.D. ANESTHESIA: General with endotracheal tube. PROCEDURE: Cystoscopy, insertion of left external ureteral stent. COMPLICATIONS: None, but the prostate was oozing. ESTIMATED BLOOD LOSS: Minimal. SPECIMENS: None. DRAIN REMAINING: Was a 5-Qatari Pollack external catheter secured to the Ross catheter which was a 20-Qatari 2-way. INDICATIONS: The patient is a 67-year-old male who was admitted with abdominal pain and noted to hav e a sigmoid mass. Colonoscopy also identified a transverse colon mass with concerns for a fistula gi lakisha left lower quadrant superficial inflammation. He had already had drainage of this area. He was set up for definitive surgical resection and a discussion was had regarding both the ureteral stent p reoperatively and potential for possible bladder excision depending on the general surgical findings. The patient was brought into the room by Anesthesia, laid on the table in supine position. After rec eiving general anesthetic, his legs placed in lithotomy position and his perineum was prepped and loly ped in sterile fashion. Using a 22-Qatari cystoscope and a 30-degree lens was traversed, there was s ignificant BPH noted. In order to identify the UO's the manipulation from the scope irritated the pr ostate so there was some oozing noted. Other than that, the bladder mucosa was normal in appearance, even in the left upper posterior region and no masses were noted. The left ureteral orifice was tim ntified and intubated with the aid of a wire and the Pollack catheter was then advanced to resistance without difficulty all the way past 30 cm. At this point, the scope was broken apart and removed ca refully leaving the ureteral stent in place and a 20 Qatari Ross was placed to gravity and then secu red to the Ross catheter with silk ties. Dr. Ellison would proceed with the rest of the case.
[2018-02-09] MEDS ORDERED: Promethazine HCl 25 MG/ML VIAL SLOW IVP PRN (12:09)
[2018-02-09] MEDS ORDERED: Ondansetron HCl/PF 4 MG/2 ML Vial IVP PRN ×2 (12:09→12:45)
[2018-02-09] MEDS ORDERED: Promethazine HCl 25 MG/ML VIAL IM PRN ×2 (12:09→12:45)
--- NOTE | 2018-02-09 12:28 | OP ---
DATE OF PROCEDURE: 02/09/2018 PREOPERATIVE DIAGNOSES: High grade 90% obstructing mass sigmoid colon adherent to the left lower amrita drant abdominal wall with colocutaneous fistula, status post incision and drainage. 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 Hyperplastic polyp rectum. Adenoma without dy splasia of proximal transverse colon unresectable endoscopically, cholelithiasis. Colon mass sigmoid , adherent to the bladder. POSTOPERATIVE DIAGNOSES: High grade 90% obstructing mass sigmoid colon adherent to the left lower qu adrant abdominal wall with colocutaneous fistula, status post incision and drainage. Tubulovillous a denoma distal sigmoid colon with high grade dysplasia. Hyperplastic polyp rectum. Adenoma without d ysplasia of proximal transverse colon unresectable endoscopically, cholelithiasis. Sigmoid colon mas s, not adherent to the bladder. PROCEDURES: Dr. Watts first performed cystoscopy, left ureteral stent placement. No abnormality at cystoscopy noted. Laparotomy; mobilization of splenic flexure, transverse colon, right colon and ileum, sigmoid colon. A takedown sigmoid colon adherent to the left lower quadrant abdominal wall from the colocutaneous f istula with partial resection of abdominal wall. Large titanium clips marking the area of tumor adhe rence to the abdominal wall. A 3-0 silk suture marking the abdominal wall adherent area on the sigmo id colon specimen. Silk marking distal rectosigmoid margin. Segmental transverse colon resection of the tattooed area of the nonresectable adenoma. Right colectomy due to demarcation and questionable viability of the right colon. A 33 mm EEA colorectal anastomosis checked under water, no leak. Ile al transverse ileocolic anastomosis stapled 75 MALU. Cholecystectomy. Seprafilm used. Wound VAC ap plication, left lower quadrant abdominal wall wound. Prevena VAC over the incision. SURGEON: Dr. Yosi Ellison ANESTHESIA: General. ESTIMATED BLOOD LOSS: Less 100 mL. A ureteral stent left removed at the end of the procedure. Lumbar epidural per Anesthesia. PROCEDURE: The patient was taken to the operating room where under general anesthesia Dr. Watts per formed cystoscopy and left ureteral stent placement, bladder appeared to be normal. After Dr. Watts completed her portion in the dorsal lithotomy position, abdomen was clipped of hair, prepared with ChloraPrep, draped in routine fashion. Incision was made from the upper abdomen to th e pubis, carried down skin and subcutaneous tissue, midline fascia and abdominal cavity sharply. Nichelle ssly abdominal cavity was normal. The tattooed area at the proximal transverse colon was noted. I c ould not palpate an abnormality grossly. Gastrocolic ligament taken down from the transverse colon, mobilizing the splenic flexure and left colon. Sigmoid colon adherent to the left lower quadrant abd ominal wall taken down. Cautery used to divide the peritoneum and superficial inner layers taking do wn this inflammatory attachments. Left ureter was identified, stent palpated, kept free of harm. Th e sigmoid colon mobilized as well as the distal colon. Mobilization down to the rectosigmoid perform ed keeping the ureters free of harm. At this point, the colon above the obstructive mass was cleared of its mesentery and colon divided with MALU-75 stapler. Mesentery serially divided between clamps a nd LigaSure using 2-0 silk ties and LigaSure for hemostasis. Colon mobilized down to the rectosigmoi d. Rectosigmoid junction divided with a contour stapler and specimen resected and submitted to patho logy labeled as noted above. Colorectal anastomosis performed with a 33 mm EEA stapler technique jo ann cing a pursestring suture in the proximal colon and securing the anvil and completing the anastomosis and checking under water without leak. Anastomosis was reinforced anteriorly interrupted Lembert shaikh ture of 3-0 silk. Good hemostasis noted. Minimal blood loss occurred. Anastomosis was tension free and there was good viability of both the rectum and the proximal colon, left. At this point, the co rosio that had been previously tattooed was opened and after diligent search, I identified an area of t he recent biopsy. I could not really palpate an abnormality except there was some firmness here. I then performed a segmental resection and divided mesentery carefully with the cautery just adjacent t o the colon, as I had suspected this was benign process, but was not resectable endoscopically. This was removed, but the right colon had questionable viability. Thus, a right colectomy was performed. The right colon was mobilized. Duodenum kept free of harm. The ileocolic vessels divided adjacent to the colon using 2-0 silk ties and LigaSure to the terminal ileum which was divided with the MALU s tapler. Specimen submitted to pathology. The ileocolic anastomosis created with two fires of the GI A stapler reinforcing the staple line with interrupted Lembert suture of 3-0 silk. Mesentery closed with 2-0 silk figure of eight. Good anastomosis palpated. All bowel margins were viable. No signif icant spillage occurred. Gloves were changed repeatedly through the case when contaminated. At this point, I could palpate gallstones and as we were in the vicinity of the gallbladder, cholecystectomy was undertaken. Fundus of gallbladder grasped, and the gallbladder was taken down from the gallblad ajay bed using the cautery. Cystic artery and duct identified, clipped with clips, divided, and gallb ladder and stones submitted to Pathology. Good hemostasis ensured with the cautery. Abdominal cavit y thoroughly irrigated. Irrigant evacuated. Good hemostasis noted. As sponge and needle counts wer e correct and all areas of dissection hemostatic, Seprafilm applied after redundant omentum removed u sing the LigaSure. Midline fascia closed with continuous suture of #1 PDS. Skin and subcutaneous ti ssue thoroughly irrigated. Gloves changed. Skin approximated with brandon. Prevena dressing applie d. Left lower quadrant open wound from the colocutaneous fistula was then dressed with a wound VAC. The patient tolerated the procedure well.
[2018-02-09] MEDS ORDERED: Ketorolac Tromethamine 30 MG/ML VIAL IVP PRN (12:41)
[2018-02-09] MEDS ORDERED: Hydrocerin (Eucerin) Cream 120 gm Jar TOP PRN (12:45)
[2018-02-09] MEDS ORDERED: diphenhydrAMINE 50 MG/ML VIAL IVP PRN (12:45)
[2018-02-09] MEDS ORDERED: Naloxone HCl 0.4 mg/ml Vial IV PRN (12:45)
[2018-02-09] MEDS ORDERED: Pantoprazole 40 MG VIAL IVP SCH (12:45)
[2018-02-09] MEDS ORDERED: Naloxone HCl 0.4 mg/ml Vial IVP PRN (12:45)
[2018-02-09] MEDS ORDERED: diphenhydrAMINE 50 MG/ML VIAL IM PRN (12:45)
[2018-02-09] MEDS ORDERED: Promethazine HCl 25 MG SUPP PR PRN (12:45)
[2018-02-09] MEDS ORDERED: diphenhydrAMINE 25 MG CAP PO PRN (12:45)
[2018-02-09] MEDS ORDERED: Zolpidem Tartrate 5 MG TAB PO PRN (12:45)
[2018-02-09] MEDS: Acetaminophen 1,000 MG in Premix Bag 1 BAG IVPB PRN (13:39)
[2018-02-09] MEDS ORDERED: Glycopyrrolate 0.2 MG/ML 5 ML SYRINGE ONE (14:33)
[2018-02-09] MEDS ORDERED: Dexamethasone 20 MG/5 ML VIAL ONE (14:33)
[2018-02-09] MEDS ORDERED: PROPOFOL 200 MG/20 ML VIAL ONE (14:33)
[2018-02-09] MEDS ORDERED: Lidocaine 1% PF 5 ML VIAL ONE (14:33)
[2018-02-09] MEDS: Montelukast Sodium 10 mg Tablet PO SCH (20:00)
[2018-02-10] MEDS: Lactated Ringer's 1,000 ML IV SCH (05:03)
[2018-02-10 05:12] LABS: #Eosinphils 0.1 thou/uL (0.0-0.7); #Lymphocytes 0.8 thou/uL (1.20-3.40); #Monocytes 0.9 thou/uL (0.11-0.59); #Neutrophils 10.4 thou/uL (1.40-6.50); %Basophils 0.2 % (0.0-1.0); %Eosinophils 0.4 % (0.0-10.0); %Lymphocytes 6.5 % (21.0-51.0); %Monocytes 7.7 % (0.0-10.0); %Neutrophils 85.2 % (42.0-75.0); Hemoglobin 9.5 g/dL (14.0-18.0); Mean Corpuscular HGB CONC 31.9 g/dL (32.0-36.0); Mean Corpuscular Hemoglobin 27.5 pg (27.0-31.0); Mean Corpuscular Volume 86.2 fL (78.0-98.0); Mean Platelet Volume 6.4 fL (7.4-10.4); Platelet Count 408 thou/uL (130-400); RBC Distribution Width 13.1 % (11.5-14.5); Red Blood Cell (RBC) Count 3.46 mill/uL (4.70-6.10); White Blood Cell (WBC) Count 12.2 thou/uL (4.8-10.8)
[2018-02-10 05:28] LABS: ALT (SGPT) 51 U/L (8-55); AST (SGOT) 40 U/L (5-34); Albumin 2.5 g/dL (3.4-4.8); Alkaline Phosphatase 40 U/L (40-150); Anion Gap 8 mmol/L (10-20); BUN (Urea Nitrogen) 17 mg/dL (8.4-25.7); Bilirubin, Total 0.4 mg/dL (0.2-1.2); Calc. Creatinine Clearance 81 mL/min (70-130); Carbon Dioxide 27 mmol/L (23-31); Chloride 106 mmol/L (98-107); Estimated GFR-MDRD 69; Glucose 108 mg/dL (80-115); Potassium 4.6 mmol/L (3.5-5.1); Protein, Total 4.5 g/dL (5.8-8.1); Sodium 136 mmol/L (136-145)
[2018-02-10] MEDS: Mometasone/Formoterol 120 PUFF INHALER INH SCH ×2 (07:02→18:48)
[2018-02-10] MEDS: Tamsulosin HCl 0.4 MG CAP PO SCH ×2 (08:41→20:13)
[2018-02-10] MEDS: Multivitamin W/ Minerals 1 TAB PO SCH (08:41)
[2018-02-10] MEDS: Finasteride 5 MG TAB PO SCH (08:41)
[2018-02-10] MEDS: Pantoprazole 40 MG VIAL IVP SCH (08:41)
[2018-02-10] MEDS: D5 1/2 NS w/20 mEq KCL 1,000 ML IV SCH ×3 (10:09→20:55)
--- NOTE | 2018-02-10 10:58 | PRG ---
DATE OF SERVICE: 02/10/2018 SUBJECTIVE: The patient reports that his pain is a little worse today mainly on the right. It is no w postop day #1 from a right hemicolectomy, sigmoid resection and cholecystectomy. He denies nausea or vomiting. He is anxious to get more in his mouth. He states that he has consumed 4 liter bottles of water overnight. PHYSICAL EXAMINATION: VITAL SIGNS: Temperature is 98.2, pulse 74, blood pressure 110/65. He has a Ross catheter in place . GENERAL: He is awake and alert. He has wound VACs on. LABORATORY DATA: White count is 12.2, H&H 9.5 and 29, platelet count 408. His electrolytes are fine . ASSESSMENT: Status post multiple colon surgery and gallbladder removal. PLAN: Ambulate, discontinue Ross, sips of clear liquids.
[2018-02-10] MEDS: Acetaminophen 1,000 MG in Premix Bag 1 BAG IVPB PRN (12:06)
[2018-02-10] MEDS: fentaNYL Citrate/PF 1,250 MCG, Bupivacaine 25 ML in Sodium Chloride 0.9% 250 ML 200 ML EPIDURAL SCH (20:13)
[2018-02-10] MEDS: Montelukast Sodium 10 mg Tablet PO SCH (20:13)
[2018-02-11 05:47] LABS: #Eosinphils 0.3 thou/uL (0.0-0.7); #Lymphocytes 0.6 thou/uL (1.20-3.40); #Monocytes 0.8 thou/uL (0.11-0.59); #Neutrophils 9.9 thou/uL (1.40-6.50); %Basophils 0.2 % (0.0-1.0); %Eosinophils 2.2 % (0.0-10.0); %Monocytes 6.9 % (0.0-10.0); %Neutrophils 85.6 % (42.0-75.0); Hemoglobin 9.4 g/dL (14.0-18.0); Mean Corpuscular HGB CONC 32.1 g/dL (32.0-36.0); Mean Corpuscular Hemoglobin 27.5 pg (27.0-31.0); Mean Corpuscular Volume 85.8 fL (78.0-98.0); Mean Platelet Volume 6.3 fL (7.4-10.4); Platelet Count 372 thou/uL (130-400); RBC Distribution Width 13.7 % (11.5-14.5); Red Blood Cell (RBC) Count 3.42 mill/uL (4.70-6.10); White Blood Cell (WBC) Count 11.5 thou/uL (4.8-10.8)
[2018-02-11 06:06] LABS: ALT (SGPT) 45 U/L (8-55); AST (SGOT) 25 U/L (5-34); Albumin 2.6 g/dL (3.4-4.8); Alkaline Phosphatase 39 U/L (40-150); Anion Gap 6 mmol/L (10-20); BUN (Urea Nitrogen) 11 mg/dL (8.4-25.7); Bilirubin, Total 0.4 mg/dL (0.2-1.2); Calc. Creatinine Clearance 105 mL/min (70-130); Carbon Dioxide 27 mmol/L (23-31); Chloride 107 mmol/L (98-107); Estimated GFR-MDRD Greater than 90; Glucose 124 mg/dL (80-115); Potassium 4.3 mmol/L (3.5-5.1); Protein, Total 4.6 g/dL (5.8-8.1); Sodium 136 mmol/L (136-145)
[2018-02-11] MEDS: D5 1/2 NS w/20 mEq KCL 1,000 ML IV SCH ×2 (07:22→16:36)
[2018-02-11] MEDS: Mometasone/Formoterol 120 PUFF INHALER INH SCH ×2 (07:23→16:37)
[2018-02-11] MEDS: Multivitamin W/ Minerals 1 TAB PO SCH (08:42)
[2018-02-11] MEDS: Finasteride 5 MG TAB PO SCH (08:42)
[2018-02-11] MEDS: Pantoprazole 40 MG VIAL IVP SCH (08:42)
[2018-02-11] MEDS: Tamsulosin HCl 0.4 MG CAP PO SCH ×2 (08:42→20:49)
--- NOTE | 2018-02-11 10:58 | PRG ---
DATE OF SERVICE: 02/11/2018 SUBJECTIVE: The patient states that his pain is better today. He feels better. No nausea or vomiti ng. He is tolerating clear liquids well. He passed a little flatus. PHYSICAL EXAMINATION: VITAL SIGNS: Temperature 98.7, pulse 77, blood pressure 121/73. GENERAL APPEARANCE: He looks good. LUNGS: Clear. ABDOMEN: Soft, nondistended. He has wound VACs on his incisions. LABORATORY DATA: White count 11.5, hemoglobin and hematocrit 9.4 and 29, platelet count 372. Electr olytes, glucose 124, otherwise good. ASSESSMENT: Doing well. PLAN: Physical therapy consult and full liquid diet.
[2018-02-11] MEDS: Montelukast Sodium 10 mg Tablet PO SCH (20:49)
[2018-02-12] MEDS: fentaNYL Citrate/PF 1,250 MCG, Bupivacaine 25 ML in Sodium Chloride 0.9% 250 ML 200 ML EPIDURAL SCH (02:37)
[2018-02-12] MEDS: D5 1/2 NS w/20 mEq KCL 1,000 ML IV SCH (03:45)
[2018-02-12] MEDS: Finasteride 5 MG TAB PO SCH (08:56)
[2018-02-12] MEDS: Multivitamin W/ Minerals 1 TAB PO SCH (08:56)
[2018-02-12] MEDS: Pantoprazole 40 MG VIAL IVP SCH (08:56)
[2018-02-12] MEDS: Tamsulosin HCl 0.4 MG CAP PO SCH ×2 (08:57→21:59)
--- NOTE | 2018-02-12 09:08 | PRG ---
DATE OF SERVICE: 02/12/2018 SUBJECTIVE: The patient reports his pain is about a 4. He has an epidural in place. He is passing flatus and tolerating full liquid diet. He denies any nausea. PHYSICAL EXAMINATION: VITAL SIGNS: Temperature 98.4, pulse 79, blood pressure 111/65. GENERAL: He looks good, in no apparent distress. CHEST: Lungs clear. ABDOMEN: His abdomen is a little distended, still has the wound VAC on. Urine output is 2600, he is still getting IV fluids. The path is still pending. ASSESSMENT: Status post colon resection, cholecystectomy. PLAN: Plan is to Hep-Lock his IV. I would like to have him have a bowel movement before he goes zoe e with 2 segments of colon being removed, then we will get the epidural out and get the Ross out and then he will be able to go home.
[2018-02-12] MEDS: Mometasone/Formoterol 120 PUFF INHALER INH SCH ×2 (10:26→19:00)
[2018-02-12] MEDS: Montelukast Sodium 10 mg Tablet PO SCH (21:58)
[2018-02-13] MEDS: Mometasone/Formoterol 120 PUFF INHALER INH SCH ×2 (07:12→19:32)
[2018-02-13] MEDS: Pantoprazole 40 MG VIAL IVP SCH (08:51)
[2018-02-13] MEDS: Finasteride 5 MG TAB PO SCH (08:51)
[2018-02-13] MEDS: Tamsulosin HCl 0.4 MG CAP PO SCH ×2 (08:51→21:40)
[2018-02-13] MEDS: Multivitamin W/ Minerals 1 TAB PO SCH (08:51)
--- NOTE | 2018-02-13 08:53 | PRG ---
DATE OF SERVICE: 02/13/2018 SUBJECTIVE: The patient feels very well. He is tolerating full liquids well. His bowels are workin g. He is hungry. He wants to advance his diet. He still has an epidural in place, still has a Fole y catheter in place. He is getting out of bed. PHYSICAL EXAMINATION: VITAL SIGNS: Temperature is 98.1, pulse 75, blood pressure 122/73. GENERAL: He looks good. Incisions are healing well. ABDOMEN: Soft, nondistended. Pathology reports are not back yet. ASSESSMENT: Doing well. PLAN: We will have them remove his epidural, remove Ross after that. Saline lock IV. Advance diet to soft mechanical. Home tomorrow.
[2018-02-13] MEDS ORDERED: traMADol HCl 50 MG TAB PO PRN (16:02)
[2018-02-13] MEDS ORDERED: Acetaminophen 325 MG TAB PO PRN (16:02)
[2018-02-13] MEDS: Montelukast Sodium 10 mg Tablet PO SCH (21:40)
[2018-02-14] MEDS: traMADol HCl 50 MG TAB PO PRN ×2 (02:50→10:23)
[2018-02-14] MEDS: Mometasone/Formoterol 120 PUFF INHALER INH SCH (06:36)
[2018-02-14] MEDS ORDERED: Ibuprofen 600 MG TAB PO PRN (06:58)
[2018-02-14] MEDS ORDERED: Acetaminophen 500 MG TAB PO PRN (06:58)
--- NOTE | 2018-02-14 07:31 | DIS ---
DATE OF ADMISSION: 02/05/2018 DATE OF DISCHARGE: 02/14/2018 DISCHARGE DIAGNOSES: 1. T3 N0 M0 sigmoid colon cancer, invasion in the pericolonic fat radial margins clear by 0.6 cm, pr oximal distal margins clear. 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 CEA [place] 6. CAT scan negative for metastatic disease. Grossly intra-abdominal cavity negative. 2. 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 3. Tubulovillous adenoma of transverse colon, sessile, superior for focus of high grade dysplasia. All margins negative, all lymph nodes negative. 4. Right colectomy segmental transverse colon resection followed by right colectomy encompassing the resected specimen. 5. Cholecystitis, choledocholithiasis. PROCEDURES THIS HOSPITALIZATION: 1. 02/05/2018 - Incision and drainage of left lower quadrant abdominal wall abscess from colocutaneo us fistula from the sigmoid tumor mass. 2. 02/06/2018 - Colonoscopy by Dr. Reginald Mesa. 3. 02/09/2018 - Cystoscopy and left ureteral stent placement. 4. 02/10/2008 - Mobilization of the splenic flexure, cholecystectomy, right colectomy with ileal tr ansverse colonic anastomosis stapled MALU. Left colon resection with colorectal 33 mm EEA stapled kun stomosis, removal of stent at the end of the procedure. 5. General anesthesia and lumbar epidural removed 02/13/2018. HISTORY: A 67-year-old male without prior history of colonoscopy, has moved from [facility] to be close to his family. He has suffered anorexia, 15 pound weight loss alteration of bowel habi ts requiring occasional laxatives. He developed a mass in his left groin, presented to [facility] where he had a CAT scan of the abdomen and pelvis revealing a large mass circumferential thickening of sigmoid colon with involvement of the left groin and involvement radiol ogically dome of the bladder infiltrative versus abutting. Attempt was made to transfer him to [facility], but patient did not want to go to [place] thus was transferred to [facility]. The patient underwent incision and drainage of his left abdominal wall abscess followed by a bowel prep, colonos copy. Biopsies obtained from the proximal transverse colon sessile polyp were pending, thus surgery was postponed until 02/09/2018. By this time, pathology revealed a polyp, a TVA proximal transverse colon with some dysplasia and dysplastic changes of TVA sigmoid colon. The patient underwent the abo ve described operation. Final pathology results as noted above. He tolerated his operation well ope n fashion, discontinuing lumbar epidural on 02/13/2018, after which a Ross catheter was removed. He voided spontaneously. Bowel function is good. He tolerated his diet. Plan is to discharge home wi th followup in my office next week for staple removal. We will plan outpatient consultation with Onc ology, Radiation Oncology also to discuss adjunctive therapy in the future. Diet and activity as janel erated. Discharged home to resume his home medications consisting of potassium, multivitamins, calcium ascorb ate, Flomax 0.4 mg a day, Prinzide 20/12.5 mg a day, Singulair at bedtime, aspirin 81 mg a day, Advai r Diskus 500/50 b.i.d., tramadol as needed for pain, ibuprofen as needed for pain, Tylenol as needed for pain.
[2018-02-14] MEDS: Multivitamin W/ Minerals 1 TAB PO SCH (08:30)
[2018-02-14] MEDS: Tamsulosin HCl 0.4 MG CAP PO SCH (08:30)
[2018-02-14] MEDS: Finasteride 5 MG TAB PO SCH (08:30)
[2018-02-14] MEDS ORDERED: Lisinopril/Hydrochlorothiazide 20 mg/12.5 mg Tablet PO SCH ×2 (09:00)
[2018-02-14] MEDS ORDERED: Fish Oil 1,000 MG CAP PO SCH (09:00)
--- NOTE | 2018-02-14 10:26 | PRG ---
DATE OF SERVICE: 02/14/2018 SUBJECTIVE: Mr. Mcginnis is doing very well today. He is tolerating his diet. He is having bowel mov ements, passing flatus. Epidural was removed today and he has felt some increased pain after that, b ut it has been adequately controlled with oral Tylenol, ibuprofen and tramadol. The patient's wound looks good. OBJECTIVE: LUNGS: Clear to auscultation. CARDIAC: Regular rate and rhythm without murmur or gallop. ABDOMEN: Soft, nontender. VAC was removed from his left groin and the wound is granulating healthy. It is already decreased markedly in size. ASSESSMENT AND PLAN: 1. Open wound, left groin. This is from a colocutaneous fistula and abscess and this is healing. T here is no infection. He does not need any more antibiotics. At this point, I have discussed with t he patient and his about the wound care alternatives, and they desire non-VAC care. We will adv ise him to wash the wound with soap and water daily in the shower or bath and to place a normal salin e wet to dry dressing. His is very skilled in this and his nurse, Inez will go over this with him before discharge. 2. The patient has good GI function. He is on a regular diet. He can be discharged home. We will give him Ultram #25, 50 mg tablets 1-2 p.o. q.i.d. p.r.n. pain, 2 refills, and also hydrocodone if ne eded. No lifting over 25 pounds. 3. T3 N0 M0 pathology. Discussed with the patient and I had given the patient and his a copy o f the pathology report. His radial margins from his T3 10.5 cm lesion is approximately is less than a centimeter, but margins are clear. We would recommend that he see Medical Oncology and Radiation O ncology. I did place clips intraoperatively around the adherent tumor area to be addressed by Radiat ion Oncology. I have arranged appointments for the patient to follow up with me on 02/20/2018 at 11: 00 a.m., Dr. Monslave on 02/21/2018 at 09:[address] Pike on 02/21/2018 at 1415. Patient will see radha gordon next week to have his brandon removed. He will call sooner if there are any problems.
[2018-02-14 11:15] VITALS: BP 132/80; TEMP 98.4
== END 2018-02-14 10:48 | disposition home or self-care (01) | DRG 330 ==
LOC: SURG B 22:35
PROVIDERS: ADMIT Specialist; ATTEND Specialist
PROC: 0J9800Z Drainage of Abdomen Subcutaneous Tissue and Fascia with Drainage Device, Open Approach (ICD-10-PCS; 2018-02-05)
PROC: 0DBP8ZX Excision of Rectum, Via Natural or Artificial Opening Endoscopic, Diagnostic (ICD-10-PCS; 2018-02-06)
PROC: 0DBN8ZX Excision of Sigmoid Colon, Via Natural or Artificial Opening Endoscopic, Diagnostic (ICD-10-PCS; 2018-02-06)
PROC: 0DTN0ZZ Resection of Sigmoid Colon, Open Approach (ICD-10-PCS; principal; 2018-02-09)
PROC: 0FT40ZZ Resection of Gallbladder, Open Approach (ICD-10-PCS; 2018-02-09)
PROC: 0T778DZ Dilation of Left Ureter with Intraluminal Device, Via Natural or Artificial Opening Endoscopic (ICD-10-PCS; 2018-02-09)
PROC: 0DTF0ZZ Resection of Right Large Intestine, Open Approach (ICD-10-PCS; 2018-02-09)
PROC: 0DBL0ZZ Excision of Transverse Colon, Open Approach (ICD-10-PCS; 2018-02-09)
DX: C18.7 Malignant neoplasm of sigmoid colon (principal); L02.211 Cutaneous abscess of abdominal wall; K63.2 Fistula of intestine; K57.30 Diverticulosis of large intestine without perforation or abscess without bleeding; K80.70 Calculus of gallbladder and bile duct without cholecystitis without obstruction; I10 Essential (primary) hypertension; J45.909 Unspecified asthma, uncomplicated; N28.1 Cyst of kidney, acquired; N40.0 Benign prostatic hyperplasia without lower urinary tract symptoms; D12.3 Benign neoplasm of transverse colon; R63.0 Anorexia; Z68.26 Body mass index [BMI] 26.0-26.9, adult; Z87.891 Personal history of nicotine dependence; Z88.0 Allergy status to penicillin; Z79.82 Long term (current) use of aspirin
CPT/HCPCS: 36415; 71046; 80048; 80053; 81015; 82378; 85025; 86850; 86900; 86901; 87070; 87076; 87086; 87205; 88112; 88304; 88305; 88307; 88309; 90471; 90670; 93005; 93010; C1758; C1769; C9113; G0009; G8978-GP-CI; G8979-GP-CI; G8980-GP-CI; J0131; J0670; J1100; J1650; J1885; J1956; J2001; J2250; J2405; J2550; J2704; J2795; J3010; J3490; J7050; Q0162; Q9961

== ENCOUNTER 2018-02-21 12:35 | Inpatient (IN) | payer MEDICARE ==
[2018-02-21 13:09] LABS: Mean Corpuscular HGB CONC 31.2 g/dL (32.0-36.0); Mean Corpuscular Hemoglobin 27.3 pg (27.0-31.0); Mean Corpuscular Volume 87.3 fL (78.0-98.0); Mean Platelet Volume 6.7 fL (7.4-10.4); Platelet Count 381 thou/uL (130-400); RBC Distribution Width 15.6 % (11.5-14.5); Red Blood Cell (RBC) Count 4.39 mill/uL (4.70-6.10); White Blood Cell (WBC) Count 10.5 thou/uL (4.8-10.8)
[2018-02-21] MEDS ORDERED: Ketorolac Tromethamine 30 MG/ML VIAL ONE (13:14)
--- NOTE | 2018-02-21 13:15 | HP ---
HISTORY OF PRESENT ILLNESS: Levy Mcginnis is a 67-year-old male patient recently discharged 02/15/20 18 after being hospitalized on 02/05/2018, transferred to [facility] where he presented with a left groin mass. CAT scan suggesting sigmoid colon tumor adhe rent invading the bladder and invading the left lower quadrant abdominal wall. [facility] wanted to transfer him to [place] and the patient refused to go and was transferred to this facility. He was noted to have a left groin abscess. He underwent incision and drainage of that on 02/05/2018 and dressings applied. Wound VAC applied. Dr. Reginald Mesa saw him and colonosc opy performed revealed a proximal transverse colon polyp, status all not treatable endoscopically and polyps in the sigmoid colon and rectum and a large mass in the sigmoid. Dr. Karime Watts, Urology, saw him and cystoscopy performed and left ureteral stent placed on 02/09/2018. Under the same anesthe yevgeniy he underwent open operation with a right hemicolectomy and left colectomy and ileocolonic anastom osis to the transverse colon and colorectal anastomosis 33 mm EEA. Preoperative CEA level was 6. CT scan of abdomen and pelvis [facility] revealed absence of metastatic disease by C AT scan. Pathology revealed a sessile tubulovillous adenoma, with a minute superficial focus of high grade dysplasia. All margins negative, one lymph node negative. Rectosigmoid colon resection revea led and invasive well to moderately differentiated mucinous adenocarcinoma, 10.5 cm tumor mass associ ated with TVA with tumor invading into the abelardo colorectal tissue with all margins negative and the r adial margins clear within 6-7 mm. Twelve lymph nodes negative for metastatic cancer. He was noted to have chronic diverticulitis. He had gallstones known and cholecystectomy was also performed. The patient had a T3 N0 M0 colon cancer with additional findings of chronic diverticulitis. In effect, he had a large tumor mass associated with a tubulovillous adenoma, chronic diverticulitis and a coloc utaneous fistula. When he left the hospital the wound VAC was removed and his is an OR nurse, r linh and she has been doing normal saline wet to dry dressings in the left groin. The patient went to see Dr. Monsalve this morning and then at an appointment to see Dr. Pike this afternoon. I was i nformed that he had serosanguineous drainage from his wound. He reported to my office where evaluati on of his upper wound revealed a wound dehiscence and he was brought to preoperative holding for clos ure of his wound dehiscence today. Clear serosanguineous fluid, noninfected was noted. Anticipate d ischarge home in 24-48 hours and will reschedule Dr. Pike's appointment. We will repeat his labor atories. ALLERGIES: PENICILLIN. TOBACCO: None. ALCOHOL: None. 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 His is a retired OR nurse. HOME MEDICATIONS: Potassium bicarbonate, multivitamins, lisinopril, hydrochlorothiazide, Prinzide 20 /12.5 a day, Singulair daily, aspirin 81 mg a day, albuterol sulfate p.r.n., Advair Diskus p.r.n. PAST SURGICAL HISTORY: Right inguinal hernia repair when he was 2 years of age, right shoulder ORIF and recent operations described above. PAST MEDICAL HISTORY: Noncontributory except for hypertension and asthma. FAMILY HISTORY: Noncontributory. He thinks maybe a grandfather had colon cancer. He is unsure. He has not had a colonoscopy until this recent hospitalization. PHYSICAL EXAMINATION: VITAL SIGNS: Weight 166 pounds, 67 inches, 26 BMI, 85/51, 102 heart rate, 97.5 degrees. HEENT: Unremarkable. LUNGS: Clear to auscultation. CARDIAC: Regular rate and rhythm without murmur or gallop. ABDOMEN: Soft, nontender. Nondistended, upper wound opened slightly, wound dehiscence appreciated, viscera small bowel visualized. ASSESSMENT AND PLAN: Wound dehiscence. Plan closure. We will take him to the operating room immedi ately administered 2 grams of Ancef, give him IV fluid bolus for his mild decreased blood pressure, t ype and screen him check a CBC and base met and plan wound closure today. We will reschedule his Onc ology appointment for a later date. Risks and benefits discussed.
[2018-02-21] MEDS ORDERED: Levofloxacin 500 mg/D5W 100 ml Premix Bag ONE (13:30)
[2018-02-21 13:36] LABS: Anion Gap 14 mmol/L (10-20); BUN (Urea Nitrogen) 15 mg/dL (8.4-25.7); Calc. Creatinine Clearance 0 mL/min (70-130); Calcium 9.8 mg/dL (7.8-10.44); Carbon Dioxide 28 mmol/L (23-31); Chloride 103 mmol/L (98-107); Estimated GFR-MDRD 87; Glucose 116 mg/dL (80-115); Potassium 3.7 mmol/L (3.5-5.1); Sodium 141 mmol/L (136-145)
[2018-02-21] MEDS ORDERED: Lidocaine 2% PF 5 ML VIAL ONE ×2 (15:32)
[2018-02-21] MEDS ORDERED: Bupivacaine PF 0.5% 30 ML VIAL ONE (15:33)
[2018-02-21] MEDS ORDERED: Bupivacaine/Epinephrine 0.25% 30 ML VIAL ONE (15:33)
[2018-02-21] MEDS ORDERED: Fentanyl 100 MCG/2 ML VIAL ONE (15:47)
[2018-02-21] MEDS ORDERED: Albuterol Sulfate 1.25 MG/3 ML NEB ONE (17:13)
[2018-02-21] MEDS ORDERED: PHENYLEPHRINE-NS 100 MCG/ML 10 ML SYRINGE ONE (17:28)
[2018-02-21] MEDS ORDERED: Glycopyrrolate 0.2 MG/ML 5 ML SYRINGE ONE (17:28)
[2018-02-21] MEDS ORDERED: Lidocaine 1% PF 5 ML VIAL ONE (17:28)
[2018-02-21] MEDS ORDERED: Ondansetron PF 4 MG/2 ML Vial ONE (17:28)
[2018-02-21] MEDS ORDERED: PROPOFOL 200 MG/20 ML VIAL ONE (17:28)
[2018-02-21] MEDS ORDERED: hydrALAZINE 20 MG/ML VIAL SLOW IVP PRN (17:32)
[2018-02-21] MEDS ORDERED: Ondansetron ODT 4 MG TAB PO PRN (17:32)
[2018-02-21] MEDS ORDERED: Ondansetron PF 4 MG/2 ML Vial IVP PRN (17:32)
[2018-02-21] MEDS ORDERED: traMADol HCl 50 MG TAB PO PRN ×3 (17:37→17:40)
[2018-02-21] MEDS ORDERED: Ketorolac Tromethamine 30 MG/ML VIAL IVP PRN (17:37)
[2018-02-21] MEDS ORDERED: Ibuprofen 600 MG TAB PO PRN (17:40)
[2018-02-21] MEDS ORDERED: Acetaminophen 500 MG TAB PO PRN (17:40)
[2018-02-21] MEDS ORDERED: Potassium Bicarbonate/Cit Ac 25 MEQ TAB PO PRN (17:40)
[2018-02-21] MEDS ORDERED: Ondansetron HCl/PF 4 MG/2 ML Vial IVP PRN (17:46)
[2018-02-21] MEDS ORDERED: Promethazine HCl 25 MG/ML VIAL IM PRN (17:46)
[2018-02-21] MEDS ORDERED: Promethazine HCl 25 MG/ML VIAL SLOW IVP PRN (17:46)
[2018-02-21] MEDS ORDERED: PROVENTIL INHALER 6.7 G (200 INHALATIONS) INH PRN (18:15)
[2018-02-21] MEDS: Mometasone/Formoterol 120 PUFF INHALER INH SCH (19:47)
[2018-02-21] MEDS: Acetaminophen 1,000 MG in Premix Bag 1 BAG IVPB SCH (20:47)
[2018-02-21] MEDS: Famotidine 20 MG TAB PO SCH (20:49)
[2018-02-21] MEDS ORDERED: Aspirin 81 mg Enteric Coated Tablet PO SCH (21:00)
[2018-02-21] MEDS ORDERED: Montelukast Sodium 10 mg Tablet PO SCH (21:00)
[2018-02-21] MEDS ORDERED: Enoxaparin Sodium 40 MG/0.4 ML SYRINGE SC SCH (21:00)
--- NOTE | 2018-02-21 21:23 | OP ---
DATE OF OPERATION: 02/21/2018 PREOPERATIVE DIAGNOSES: 1. Wound dehiscence, status post laparotomy. 2. Right and left colon resection for 10.5 cm colon cancer and drainage of a colocutaneous fistula. 3. Malnutrition. POSTOPERATIVE DIAGNOSES: 1. Wound dehiscence, status post laparotomy. 2. Right and left colon resection for 10.5 cm colon cancer and drainage of a colocutaneous fistula. 3. Malnutrition. PROCEDURE: Closure of upper third wound dehiscence, abdominal washout, wound VAC application. SURGEON: Dr. Yosi Ellison ANESTHESIA: General. FINDINGS: The patient's most of his fascia was intact. The upper 7 cm had dehisced above the common knot from the PDS suture. The fascia below this was intact. PROCEDURE IN DETAIL: Patient was taken to the operating room where under general anesthesia, abdomen was prepared with Betadine, draped in the routine fashion. The wound was slightly opened in the upp er half 14 cm in length, leaving a wound 1 cm deep, 1 cm wide. The fascia was reinforced with a figu re-of-eight suture of #1 PDS in the mid wound and then continued suture of #1 PDS, closed the fascial dehiscence after washing the abdominal cavity and evacuating the irrigation. Irrigation was clear. There was only serosanguineous drainage. It was not foul smelling. Cultures not obtained. After c losure of the wound dehiscence, it was felt best to place a wound VAC. Wound VAC was applied. Gauze dressing applied to the left groin wound that was healing secondary from his colocutaneous fistula. Patient tolerated the procedure well.
[2018-02-21] MEDS: Lactated Ringer's 1,000 ML IV SCH (23:15)
[2018-02-22] MEDS: Acetaminophen 1,000 MG in Premix Bag 1 BAG IVPB SCH ×2 (01:16→07:20)
[2018-02-22] MEDS: Lactated Ringer's 1,000 ML IV SCH ×2 (01:23→10:03)
[2018-02-22] MEDS: Mometasone/Formoterol 120 PUFF INHALER INH SCH (07:01)
[2018-02-22 07:49] VITALS: BMI 22.6
[2018-02-22] MEDS ORDERED: Acetaminophen 500 MG TAB PO SCH (08:00)
[2018-02-22] MEDS ORDERED: Ibuprofen 600 MG TAB PO PRN (08:00)
[2018-02-22] MEDS ORDERED: Ferrous Sulfate 325 MG TAB PO SCH (08:00)
[2018-02-22] MEDS ORDERED: Lisinopril/Hydrochlorothiazide 20 mg/12.5 mg Tablet PO SCH (09:00)
[2018-02-22] MEDS ORDERED: Ascorbic Acid 500 mg Chewable Tablet PO SCH (09:00)
[2018-02-22] MEDS ORDERED: Tamsulosin HCl 0.4 MG CAP PO SCH (09:00)
[2018-02-22] MEDS ORDERED: Multivitamin W/ Minerals 1 TAB PO SCH (09:00)
[2018-02-22] MEDS ORDERED: Fish Oil 1,000 MG CAP PO SCH (09:00)
[2018-02-22] MEDS: Famotidine 20 MG TAB PO SCH (09:55)
[2018-02-22 11:44] VITALS: BP 105/58; TEMP 98.1
--- NOTE | 2018-02-22 15:36 | PRG ---
DATE OF SERVICE: 02/22/2018 SUBJECTIVE: Mr. cMginnis is doing well today. He is tolerating his diet. OBJECTIVE: VITAL SIGNS: 98.1, 85, 105/58. LUNGS: Clear to auscultation. CARDIAC: Regular rate and rhythm without murmur or gallop. ABDOMEN: Soft, nontender. Wound VAC in place. Wound care team has arranged an outpatient wound VAC . The ceo and founder has arranged an outpatient appointment for him. His pain is well controlled. He h as Ultram at home. PLAN: Discharge home with follow up in my office in approximately 2 weeks. Otherwise, I will see radha garcia in the Wound Care Clinic.
--- NOTE | 2018-02-23 07:40 | DIS ---
DATE OF ADMISSION: 02/21/2018 DATE OF DISCHARGE: 02/22/2018 DISCHARGE DIAGNOSES: 1. Wound dehiscence fascial without evisceration. 2. Status post 02/21/2018 laparotomy, right colon resection, left colon resection, drainage of an ab scess for a TVA, proximal transverse colon at 10.5 cm, adenocarcinoma of sigmoid colon with clear mar gins, negative nodes. He has seen Dr. Monsalve and appointment for Dr. Pike has been rescheduled nex t week hospitalization. He has suffered weight loss prior. He is allergic to PENICILLIN. HISTORY: Mr. Mcginnis is a 67-year-old male, status post the above described operation, saw Dr. Monsalve consideration therapy in the future to his abdominal wall, noted to have serosanguineous draina ge from his wound, presented to my office and looked in his upper wound, noting a wound dehiscence, a dmitted to the hospital, received fluids and antibiotics, taken to the operating room for closure of wound dehiscence, abdominal washout the next day, tolerating his diet, then discharged home with outp atient wound VAC has been arranged and he will presented to the hospital for wound VAC change. Appoi ntment with Dr. Pike has been rescheduled to next week. I will see him in Wound Care in the next week to 2 weeks or he will report to my office. He has Ultram at home for pain. He will resume his home medications including nutritional shakes, supplements and vitamins.
--- NOTE | 2018-03-02 15:43 | PQF ---
DINA DIXON RICHARD D MD [id number] [facility]- [id number] CLINICAL DOCUMENTATION CLARIFICATION FORM: POST DISCHARGE Date: 03/02/18 ATTN: Dr. Ellison Please exercise your independent, professional judgment in responding to the clarification form. Clinical indicators are provided on the bottom of this form for your review Please check appropriate box(s): [ ] Protein Calorie Malnutrition: [ ] Mild [ ] Moderate [ ] Severe [ ] Other Malnutrition (please specify) __ [ ] Underweight without malnutrition [ ] Cachexia [ ] Other diagnosis [ ] Unable to determine In addition, please specify: Present on Admission (POA): [ ] Yes [ ] No [ ] Unable to determine CLINICAL INDICATORS - SIGNS / SYMPTOMS / LABS Malnutriton documented on operative report 02/21/18 BMI of 26 Weight Loss RISK FACTORS Colon malignancy TREATMENT: Nutritional supplements, shakes and vitamins Moderate Malnutrition (in acute illness) Energy Intake: <75% of estimated energy requirement for > 7 days Weight Loss: 1-2%/1 week; 5%/ 1 month; 7.5%/3 months Other: mild body fat loss; mild muscle mass loss; mild fluid accumulation; Severe Malnutrition (in acute illness) Energy Intake: < 50% of estimated energy requirement for > 5 days Weight Loss: >1-2%/1 week; >5%/1 month; >7.5%/3 months Other: moderate body fat loss; moderate muscle mass loss; moderate- severe fluid accumulation; measurably reduced nut orchardist strength Moderate Malnutrition (in chronic illness) Energy Intake: <75% of estimated energy requirement for >1 month Weight Loss: 5%/1 month; 7.5%/3 months; 10%/6 months; 20%/1 year Other: mild body fat loss; mild muscle mass loss; mild fluid accumulation Severe Malnutrition (in chronic illness) Energy Intake: <75% of estimated energy requirement for >1 month Weight Loss: >5%/1 month; >7.5%/3 months; >10%/6 months; >20%/1 year Other: severe body fat loss; severe muscle mass loss; severe fluid accumulation; measurably reduced nut orchardist strength (This form is maintained as a part of the permanent medical record) 2014 [employer] All Rights Reserved Rachel [email or web address] [phone] MTDD
== END 2018-02-22 15:43 | disposition home or self-care (01) | DRG 920 ==
LOC: SDC 12:35 → SJJU 18:49
PROVIDERS: ADMIT Specialist; ATTEND Specialist
PROC: 0JQ83ZZ Repair Abdomen Subcutaneous Tissue and Fascia, Percutaneous Approach (ICD-10-PCS; principal; 2018-02-21)
DX: T81.31XA Disruption of external operation (surgical) wound, not elsewhere classified, initial encounter (principal); C18.7 Malignant neoplasm of sigmoid colon; K57.32 Diverticulitis of large intestine without perforation or abscess without bleeding; Z88.0 Allergy status to penicillin; Z79.82 Long term (current) use of aspirin; Z90.49 Acquired absence of other specified parts of digestive tract
CPT/HCPCS: 36415; 80048; 85027; 86850; 86900; 86901; J0131; J1650; J1885; J1956; J2001; J2405; J2704; J3010; S0020

== ENCOUNTER 2018-02-26 13:35 | Outpatient (CLI) | payer MEDICARE ==
--- NOTE | 2018-02-26 15:25 | HP ---
DATE OF SERVICE: 02/26/2018 HISTORY OF PRESENT ILLNESS: Mr. Levy Mcginnis is a very pleasant 67-year-old gentleman accompanied b y his who presents to the Wound Center for evaluation of a midline abdominal wound subsequent to closure of upper wound dehiscence after laparotomy. At surgery, the patient also underwent abdomina l washout and wound VAC application. Previously, Mr. Mcginnis had undergone right and left colon resec tion for colon carcinoma in addition to drainage of a colocutaneous fistula. Subsequent to surgery o n 02/21/[address] Yosi Ellison, the patient was referred to the Wound Center for assistance with dressing changes of the wound VAC. PAST MEDICAL HISTORY: 1. Hypertension. 2. Asthma. PAST SURGICAL HISTORY: 1. Right inguinal hernia repair. 2. Right shoulder ORIF. 3. Incision and drainage of deep left lower quadrant abdominal wall abscess. 4. Tonsillectomy. 5. Right and left colon resection for colon carcinoma in addition to cholecystectomy. 6. Closure of upper third wound dehiscence after laparotomy/abdominal washout/wound VAC application. MEDICATIONS: 1. Lisinopril. 2. ProAir. 3. Advair. 4. Mucomyst. 5. Flomax. 6. Fish oil. 7. Multivitamin. ALLERGIES: PENICILLIN. SOCIAL HISTORY: Significant for occasional ETOH use and occasional cigar use. The patient states th at he stopped smoking cigarettes in 1989. Before then, he smoked up to 1-1/2 packs of cigarettes per day for 25-30 years. FAMILY HISTORY: Significant for coronary artery disease. The patient's father was diagnosed with co ronary artery disease. PHYSICAL EXAMINATION: VITAL SIGNS: Temperature 97.5, pulse 99, respirations 16, blood pressure 107/57. GENERAL: A 67-year-old gentleman sitting on chair in examination room in no acute distress. HEENT: Normocephalic, atraumatic. NECK: No nuchal rigidity. CHEST: Clear to auscultation. CARDIOVASCULAR: Regular rate and rhythm. ABDOMEN: Soft. A midline abdominal wound is present which measures approximately 11.5 x 1.3 cm. Gr anulation tissue is present within the wound margins. No purulent drainage is associated with the wo und. No erythema of the skin surrounding the wound is present. No maceration of the skin of the per iwound is noted. EXTREMITIES: No clubbing or cyanosis. NEUROLOGIC: Grossly nonfocal. ASSESSMENT AND PLAN: 1. Midline abdominal wound as described above. Negative pressure therapy will be continued with eric ssing changes of the wound VAC here in the Wound Center. The patient will be seen by Dr. Ellison in t he near future. I will see Mr. Mcginnis again in two weeks. 2. Hypertension. 3. Asthma.
[2018-02-26] MEDS ORDERED: Sodium Chloride 0.9% 15 ML NEB ONE (20:00)
== END 2018-02-26 13:36 | disposition home or self-care (01) ==
LOC: WCC 13:35
PROVIDERS: ATTEND Family Medicine
DX: S31.109A Unspecified open wound of abdominal wall, unspecified quadrant without penetration into peritoneal cavity, initial encounter (principal); I10 Essential (primary) hypertension; J45.909 Unspecified asthma, uncomplicated; Z98.890 Other specified postprocedural states
CPT/HCPCS: 97602; 99203; A4218; G0463

== ENCOUNTER 2018-03-01 10:53 | Outpatient (CLI) | payer MEDICARE | END 2018-03-01 10:54 | disposition home or self-care (01) | LOC: WCC 10:53 | PROVIDERS: ATTEND Family Medicine | DX: T81.89XD Other complications of procedures, not elsewhere classified, subsequent encounter (principal) | CPT/HCPCS: 97605 ==

== ENCOUNTER 2018-03-06 11:28 | Outpatient (CLI) | payer MEDICARE ==
[2018-03-06] MEDS ORDERED: Sodium Chloride 0.9% 15 ML NEB ONE (18:00)
== END 2018-03-06 11:29 | disposition home or self-care (01) ==
LOC: WCC 11:28
PROVIDERS: ATTEND Family Medicine
DX: T81.89XD Other complications of procedures, not elsewhere classified, subsequent encounter (principal)
CPT/HCPCS: 97602; A4218

== ENCOUNTER 2018-03-20 13:06 | Outpatient (CLI) | payer MEDICARE ==
--- NOTE | 2018-03-21 13:24 | PET ---
NUCLEAR MEDICINE FDG PET CT: (Positron Emission Tomography) DATE: 03/20/18 HISTORY: 67-year-old male with colon cancer, C18.7, initial staging. COMPARISON: None. TECHNIQUE: IV injection F-18 Fluorodeoxyglucose (FDG) dose: 10.0 mCi PET and attenuation-correction CT performed from skull base to proximal thighs. FINDINGS: SUV (standard uptake value) numbers given are QCLR maximum SUV's: Attenuation correction CT images demonstrate suture line in the vicinity of the sigmoid-rectum juncti on. Multiple surgical clips at the left pelvic inlet surrounding loop of small bowel, adjacent to whi ch there is fat stranding, probably representing postsurgical changes. Hypermetabolic activity focall y in this location with SUV of 7.1. It is uncertain whether this increased uptake represents postsurg ical changes or a focus of neoplastic activity. No evidence of hepatic metastasis. Enlarged prostate gland. There is another suture line at midline i n the region of the transverse colon, where there is abrupt truncation such that there is absence of the right hemicolon. No other suspicious areas of hypermetabolic activity in the rest of the pelvis, abdomen, chest or neck. IMPRESSION: 1. Status post right hemicolectomy. 2. Several regions of bowel anastomosis. 3. In the left lower quadrant, at the pelvic inlet far anteriorly, just deep to the left rectus abdo minus muscle, there is a region of ill-defined density with hypermetabolic activity. It is uncertain whether this represents postsurgical changes or a focus of neoplastic activity. 4. Otherwise no other potential evidence of distant metastasis. JOSIAH Ham POS: ALEXANDREA
== END 2018-03-20 13:07 | disposition home or self-care (01) ==
LOC: PET 13:06
PROVIDERS: ATTEND Internal Medicine Hematology & Oncology
DX: C18.9 Malignant neoplasm of colon, unspecified (principal); Z90.49 Acquired absence of other specified parts of digestive tract
CPT/HCPCS: 78815; A9552

== ENCOUNTER 2018-03-20 15:06 | Outpatient (CLI) | payer MEDICARE ==
--- NOTE | 2018-03-20 16:32 | RAD ---
TWO VIEWS CHEST: Date: 03-20-18 Provided Clinical History: Shortness of breath. FINDINGS: Comparison 02-05-18. Cardiac and mediastinal silhouette is within normal limits. There is patchy left lower lobe airspace disease present, compatible with pneumonia in the appropriate clinical context. The lungs appear othe rwise clear. There is no pleural fluid or pneumothorax apparent. IMPRESSION: Left basilar airspace disease compatible with pneumonia in the appropriate clinical context. Follow u p is recommended to document resolution. POS: TPC
== END 2018-03-20 15:07 | disposition home or self-care (01) ==
LOC: BICRAD 15:06
PROVIDERS: ATTEND Specialist
DX: R06.02 Shortness of breath (principal); J98.4 Other disorders of lung
CPT/HCPCS: 71046; 78815; A9552

== ENCOUNTER 2018-09-12 06:04 | Day surgery (SDC) | payer MEDICARE, OTHER ==
--- NOTE | 2018-09-10 13:53 | HP ---
HISTORY OF PRESENT ILLNESS: Levy Mcginnis is a 68-year-old male patient followed in my office for incisional hernia. He has had this repaired in later August. He is waiting till after . The patient presented with a large colonic mass, lower sigmoid, rectosigmoid area with probable colocutaneous fistula and abutment to the dome of the bladder and a left lower quadrant/groin abscess. He initially presented to [facility] and they want to transfer him to [place], he refused, and they transferred him to [facility] after I accepted him on-call. The patient underwent incision and drainage of the abscess, 02/05/2018, seen by Dr. Mesa and colonoscopy was performed revealing a near obstructing sigmoid colon mass. Dr. Watts saw him and placed stents. On 02/09/2018, the patient underwent laparotomy with mobilization of the splenic flexure, right colon, ileum, sigmoid colon, taking down of the sigmoid colon adherent to the abdominal wall, left lower quadrant. Titanium clips placed, marking the area of the tumor adherent to the abdominal wall. He underwent a segmental transverse colon resection of the tattooed area from a polyp, but no mobilization. There was some question of a vascular viability of the right colon. Thus, a right colectomy was performed with ileocolonic anastomosis and then rectosigmoid colon resection with 33 mm EEA stapler. Seprafilm was used. Prevena VAC was placed over the incision. The patient did well until 02/21/2018, when he suffered wound dehiscence, requiring return to the operating room for closure of upper third wound dehiscence, abdominal washout, and wound VAC application. This patient's pathology which included resection of the right colon, sigmoid colon, and gallbladder revealed a 10.5 cm tumor at T3, N0, M0. He has seen Oncology, undergoing chemotherapy. PET scan was negative for a disease in February. I saw him in June for incisional hernia and he now reports again to schedule that. ALLERGIES: PENICILLIN. SOCIAL HISTORY: Tobacco none. Former smoker, cessation in 1990. Alcohol socially. PAST MEDICAL HISTORY: Asthma and allergies, left colon cancer as described. PAST SURGICAL HISTORY: As described above. In addition, she had shoulder surgery in 2005. REVIEW OF SYSTEMS: Noncontributory. The patient is followed by Dr. Caraballo, primary care. PHYSICAL EXAMINATION: GENERAL: Weight 196 pounds, 67 inches, 30 BMI, blood pressure 130/69, heart rate 83, temperature 98.6 degrees. HEAD, EYES, EARS, NOSE, AND THROAT: Unremarkable. LUNGS: Clear to auscultation. CARDIAC: Regular rate and rhythm without murmur or gallop. ABDOMEN: Soft and nontender. Incisional hernia above the umbilicus. Defect approximately 6 cm. ASSESSMENT: Incisional hernia. PLAN: Robot repair possibly using mesh, possibly open. He understands risks and benefits, consents. Job ID: [id number]
[2018-09-11 11:18] VITALS: BMI 26.9
[2018-09-12] MEDS ORDERED: Ketorolac Tromethamine 30 MG/ML VIAL ONE (06:32)
[2018-09-12] MEDS ORDERED: Midazolam HCl 2 mg/2 ml Vial ONE (06:44)
[2018-09-12] MEDS ORDERED: Fentanyl 100 MCG/2 ML VIAL ONE (06:45)
[2018-09-12] MEDS ORDERED: Dexamethasone 4 mg/ml Vial ONE (06:45)
[2018-09-12 06:58] LABS: #Eosinphils 0.3 thou/uL (0.0-0.7); #Lymphocytes 0.6 thou/uL (1.20-3.40); #Monocytes 0.7 thou/uL (0.11-0.59); #Neutrophils 4.1 thou/uL (1.40-6.50); %Basophils 0.6 % (0.0-1.0); %Eosinophils 5.3 % (0.0-10.0); %Lymphocytes 11.1 % (21.0-51.0); %Monocytes 11.7 % (0.0-10.0); %Neutrophils 71.1 % (42.0-75.0); Hemoglobin 12.6 g/dL (14.0-18.0); Mean Corpuscular HGB CONC 31.8 g/dL (32.0-36.0); Mean Corpuscular Hemoglobin 26.4 pg (27.0-31.0); Mean Corpuscular Volume 83.1 fL (78.0-98.0); Mean Platelet Volume 7.2 fL (7.4-10.4); Platelet Count 223 thou/uL (130-400); RBC Distribution Width 13.9 % (11.5-14.5); Red Blood Cell (RBC) Count 4.77 mill/uL (4.70-6.10); White Blood Cell (WBC) Count 5.7 thou/uL (4.8-10.8)
[2018-09-12] MEDS ORDERED: Levofloxacin 500 mg/D5W 100 ml Premix Bag ONE (07:03)
[2018-09-12] MEDS ORDERED: Lidocaine 1% (PF) 30 ML VIAL ONE (07:12)
[2018-09-12 07:19] LABS: Anion Gap 11 mmol/L (10-20); BUN (Urea Nitrogen) 11 mg/dL (8.4-25.7); Calc. Creatinine Clearance 85 mL/min (70-130); Calcium 9.9 mg/dL (7.8-10.44); Carbon Dioxide 28 mmol/L (23-31); Chloride 107 mmol/L (98-107); Estimated GFR-MDRD 72; Glucose 123 mg/dL (80-115); Potassium 4.1 mmol/L (3.5-5.1); Sodium 142 mmol/L (136-145)
[2018-09-12] MEDS ORDERED: Bupivacaine HCl 0.5%/Epinephrine 1:200,000/PF 30 ml Vial ONE ×2 (07:58→14:42)
[2018-09-12] MEDS ORDERED: Fentanyl 250 MCG/5 ML VIAL ONE (08:03)
[2018-09-12] MEDS ORDERED: Albuterol Sulfate HFA (OR ONLY) ONE (08:10)
--- NOTE | 2018-09-12 11:45 | OP ---
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 Incisional hernia, upper abdomen between umbilicus and xiphoid. 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 Incisional hernia, upper abdomen between umbilicus and xiphoid. PROCEDURE PERFORMED: Robotic adhesiolysis, robotic incisional hernia repair with primary closure of fascia and reinforcement with Ventralight mesh, 8 x 11 cm oval. ANESTHESIA: General. Ross placed at the beginning of the procedure and removed at the end, 180 mL backfill to facilitate voiding and discharge. DESCRIPTION OF PROCEDURE: The patient was taken to the operating room, where under general anesthesia Ross catheter was placed at the beginning of the procedure and removed at the end. Abdomen was clipped of hair, prepared with ChloraPrep and draped in routine fashion. Left lateral subcostal incision was made, and attempts of pneumoperitoneum were made, but were not successful. Thus, a left subxiphoid incision was made and pneumoperitoneum to 15 mmHg was obtained with the Veress needle, replaced it with a 5 port and video laparoscope inserted. There were very little adhesions present. There was a loop of small bowel adhesed to the incisional hernia defect, which was located from just around the umbilicus to well below the xiphoid. At this point, abdominal cavity was otherwise free of adhesions. Left lateral subcostal incision was made and 8 mm port placed under laparoscopic visualization, and left mid lateral abdominal incision was made and 11 mm port placed for the camera and a left lower quadrant incision made and another 8 mm port placed. Robot was docked, positioned, and then adhesiolysis undertaken, carefully taken down small bowel adhesions from the anterior abdominal wall. This was performed without injury to the small bowel. Once this was accomplished, pneumoperitoneum reduced to 8 mmHg and #1 V-Loc suture used to close the hernia defect. Another #1 V-Loc suture was used to further reinforce this and to tighten the closure. Once this was accomplished, the mesh was configured, trimmed, marked, and then placed intra-abdominally. Selection of mesh was facilitated by intra-abdominal ruler to measure the defect and selected the appropriate mesh. The defect was approximately 7 cm in length. Mesh was then positioned and held in place with needles, which had been used and continuous suture of 2-0 V-Loc suture used to secure the mesh to the abdominal wall. Sutures and needles were removed. Counts were correct. Mesh was well positioned and tied across the closure. Care was taken in closing the defect to avoid any penetration of the skin. Pneumoperitoneum reduced. All instruments removed. All port sites closed with interrupted subdermal 4-0 Monocryl and Childress glue applied. The patient tolerated the procedure well. Job ID: [id number]
[2018-09-12] MEDS ORDERED: Lidocaine 2% PF 5 ML VIAL ONE (15:17)
[2018-09-12] MEDS ORDERED: Rocuronium Bromide 10 MG/ML (10ML VIAL) ONE (15:17)
[2018-09-12] MEDS ORDERED: ePHEDrine 50 MG/ML VIAL ONE (15:17)
[2018-09-12] MEDS ORDERED: Glycopyrrolate 0.2 MG/ML 5 ML SYRINGE ONE (15:17)
[2018-09-12] MEDS ORDERED: PROPOFOL 200 MG/20 ML VIAL ONE (15:17)
[2018-09-12] MEDS ORDERED: Ondansetron PF 4 MG/2 ML Vial ONE (15:17)
[2018-09-12] MEDS ORDERED: HYDROcodone/Acetaminophen 5/325 mg Tablet ONE ×2 (16:40→21:32)
--- NOTE | 2018-09-13 03:40 | CON ---
DATE OF CONSULTATION: 09/12/2018 HISTORY OF PRESENT ILLNESS: This is a 68-year-old white male who I was asked to see this evening by Dr. Yosi Ellison. Earlier today, he underwent a ventral hernia repair done with the laparoscope. This is for incisional hernia. He has had a prior history of a colon cancer that had actually formed an abscess in the left lower quadrant and he had undergone placement of ureteral stent by Dr. Watts. Her note from January of 2018 indicated a large prostate that did bleed relatively easily during the procedure, but the bladder itself was free and clear of any abnormality and the left ureteral stent went up easily. There was nothing to suggest a colovesical fistula. He had this surgery done in I think January. He had a PET scan recently that was probably negative. There was a small focus of some hypermetabolic activity, he sees Dr. Pike for that. He has been radiated by Dr. Monsalve. He does have some BPH symptoms. He takes Flomax for that. He has never had gross hematuria. He has urinary tract infections in the past after Ross catheterizations. He had his procedure done today and he has not urinated since. A bladder scan showed 180 mL in the bladder. The nurse did in and out catheterization and did not get any urine back. She said she met resistance about [address] and then had just return of some blood. I looked at that and there is really probably no urine in it and there is not a large amount of blood. I do not think she had really got into the bladder. ALLERGIES: PENICILLIN. MEDICAL HISTORY: Asthma, he has had colon cancer. He has had a shoulder surgery. I think a pin was placed and he had a most recent surgery in January. With the patient's permission, we went ahead and did a Betadine prep and then placed two syringes of 2% Xylocaine jelly topically and held that in place for a minute. We then brought in a 22-Luxembourgish coude catheter, placed this without too much difficulty through the anterior urethra and prostatic urethra into the bladder. We drained urine that was concentrated, had some blood in it, but no clots and it appeared to drain well. We placed 10 mL in the balloon. 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 He will go home on Macrobid 1 p.o. b.i.d. to start in the morning. He is to resume his Flomax. He is to push his fluids. The patient's will call me tomorrow to let me know how he is doing. She can [facility] if there are any other problems. He can normally leave this catheter in for probably 3 days to four days. However, with more of that weekend, I will place this right in the middle of the weekend. The actually feels comfortable removing it, so she will call me tomorrow and likely remove this maybe on Monday, . Job ID: [id number]
== END 2018-09-12 21:48 | disposition home or self-care (01) ==
LOC: SDC 06:04
PROVIDERS: ATTEND Specialist
PROC: 0WUF4JZ Supplement Abdominal Wall with Synthetic Substitute, Percutaneous Endoscopic Approach (ICD-10-PCS; principal; 2018-09-12)
DX: K43.2 Incisional hernia without obstruction or gangrene (principal); L02.214 Cutaneous abscess of groin; J45.909 Unspecified asthma, uncomplicated; Z85.038 Personal history of other malignant neoplasm of large intestine; Z87.891 Personal history of nicotine dependence; Z88.0 Allergy status to penicillin
CPT/HCPCS: 36415; 80048; 85025; J0131; J0670; J1100; J1885; J1956; J2001; J2250; J2405; J2704; J3010; J3490

== ENCOUNTER 2019-04-10 05:40 | Inpatient (IN) | payer MEDICARE ==
[2019-04-10] MEDS ORDERED: Albuterol Sulfate 2.5 mg/3 ml Neb ONE (06:00)
[2019-04-10 06:08] LABS: #Eosinphils 0.4 thou/uL (0.0-0.7); #Lymphocytes 0.7 thou/uL (1.20-3.40); #Monocytes 0.9 thou/uL (0.11-0.59); #Neutrophils 12.7 thou/uL (1.40-6.50); %Basophils 0.1 % (0.0-1.0); %Eosinophils 2.5 % (0.0-10.0); %Lymphocytes 4.9 % (21.0-51.0); %Neutrophils 86.7 % (42.0-75.0); Hemoglobin 12.6 g/dL (14.0-18.0); Mean Corpuscular HGB CONC 32.2 g/dL (32.0-36.0); Mean Corpuscular Volume 80.8 fL (78.0-98.0); Mean Platelet Volume 6.8 fL (7.4-10.4); Platelet Count 571 thou/uL (130-400); RBC Distribution Width 14.9 % (11.5-14.5); Red Blood Cell (RBC) Count 4.86 mill/uL (4.70-6.10); White Blood Cell (WBC) Count 14.6 thou/uL (4.8-10.8)
[2019-04-10 06:15] LABS: INR-International Normal Ratio 1.2; PTT 27.2 SEC (22.9-36.1); Prothrombin Time 15.5 SEC (12.0-14.7)
[2019-04-10 06:28] LABS: ALT (SGPT) 58 U/L (8-55); AST (SGOT) 25 U/L (5-34); Albumin 3.7 g/dL (3.4-4.8); Alkaline Phosphatase 82 U/L (40-110); Anion Gap 17 mmol/L (10-20); BUN (Urea Nitrogen) 16 mg/dL (8.4-25.7); Bilirubin, Total 0.8 mg/dL (0.2-1.2); Calc. Creatinine Clearance 0 mL/min (70-130); Calcium 9.6 mg/dL (7.8-10.44); Carbon Dioxide 26 mmol/L (23-31); Chloride 98 mmol/L (98-107); Estimated GFR-MDRD 48; Globulin 3.8 g/dL (2.4-3.5); Glucose 154 mg/dL (80-115); Potassium 3.4 mmol/L (3.5-5.1); Protein, Total 7.5 g/dL (5.8-8.1); Sodium 138 mmol/L (136-145)
[2019-04-10] MEDS ORDERED: Azithromycin 500 MG VIAL ONE (07:00)
[2019-04-10] MEDS ORDERED: cefTRIAXone\\ROCEPHIN 1 GM VIAL ONE (07:00)
[2019-04-10] MEDS ORDERED: Ketorolac Tromethamine 30 MG/ML VIAL ONE (07:35)
--- NOTE | 2019-04-10 08:04 | RAD ---
CHEST 1 VIEW: COMPARISON: 03/20/2018. HISTORY: Shortness of breath. Chest pain. FINDINGS: Partial obscuration of the left hemidiaphragm and left heart border due to pleural and parenchymal ch anges. Normal cardiac silhouette. There is atherosclerosis. Lungs are hyperinflated. No pneumotho rax. Chronic changes in the lung bases. IMPRESSION: Pleural and parenchymal changes of the left lung base. Continued surveillance is recommended. POS: CET
--- NOTE | 2019-04-10 08:20 | CT ---
Emergent after hours CT angiogram thorax with IV contrast and 3-D reconstructions HISTORY: Intermittent shortness of breath with pain upon deep breathing. Patient states pain is stabbing and s hooting in nature. IMPRESSION: 1. Masslike area of consolidation seen in the peripheral aspect of the lingula which could be related to dense consolidation secondary to pneumonia. However, neoplastic process cannot be excluded. Reticulonodular densities are seen in the right lower lobe suggestive of an infectious or inflammator y process. Follow-up evaluation of the masslike area of consolidation in the left upper lobe is recommended to ensure resolution. If the patient does not have signs or symptoms of pneumonia, this c ould potentially represent a neoplastic process. 2. COPD with pleural and parenchymal scarring in each lung apex and in the upper lobes. 3. Small left pleural effusion. 4. No CT evidence of a pulmonary embolus. A suggestive filling defect within a subsegmental right low er lobe pulmonary artery is most likely attributable to motion artifact. 5. Right renal cyst. 6. Incomplete imaging of a ventral abdominal hernia with loop of bowel within the limited visualized defect. 7. Small hiatal hernia. 8. Postsurgical changes right shoulder with right glenohumeral osteoarthropathy. 9. Findings are in agreement with the preliminary report by direct radiology. Code QA
[2019-04-10 09:09] LABS: Lactic Acid 2.3 mmol/L (0.5-2.2)
--- NOTE | 2019-04-10 09:54 | HP ---
PRIMARY CARE PHYSICIAN: Shon. CHIEF COMPLAINT: Cough and shortness of breath with chest pain. HISTORY OF PRESENT ILLNESS: This is a 68-year-old white male with a pertinent past medical history of asthma, previous smoking, quit more than 10 years ago, and colon cancer resected with radiation and chemo one year ago. The patient reports that for the past 3 weeks, he has had cough with clear sputum and intermittent left lower chest pain. The symptoms have been coming and going in severity. His was sick at the same time; however, she recovered and he never did. Symptoms have gotten significantly worse over the last 3 to 4 days. He has had decreased appetite and then woke up this morning with chills, sweats, significant pain in the left lower chest, some shortness of breath which was new, and persistent cough, so he came to the emergency room. In the ER, he was found to have a left lower lobe infiltrate on his chest x-ray. He had a CT angiography, which showed no pulmonary embolism, but did show findings consistent with a pneumonia and a small left pleural effusion. He was given azithromycin and Rocephin in the emergency room. He was tachycardic in the emergency room. Lactic acid is pending. He did have normal blood pressure, normal for him in the 90s to 100s. However, at one point in the emergency room, his blood pressure dropped into the 60s to 80s systolic. He did not feel any different at that time, this was right after he got Toradol for pain. He does not feel lightheaded or dizzy or weak when this happened and spontaneously came back up into the 90s systolic. He is restarting to receive some fluids right now. PAST MEDICAL HISTORY: 1. Asthma for which he takes albuterol almost daily along with Advair. 2. Hypertension. 3. Hyperlipidemia. 4. Benign prostatic hyperplasia. 5. Colon cancer resected last year, status post chemo and radiation without any known metastases. 6. Hernia, plan to repair tomorrow. PAST SURGICAL HISTORY: 1. Resection of part of the transverse colon and the sigmoid colon for colon cancer. 2. Right inguinal hernia repair at 2 years old. 3. Right shoulder ORIF. SOCIAL HISTORY: Previous smoker, quit in 1990. No regular alcohol. No illicit drug use. He is . Lives with his , who is disabled from recent stroke and with a relative, who has Down syndrome that they care for. He and his do not have any children. 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 FAMILY HISTORY: Possible colonic cancer in his grandmother, father of a heart attack in his late 60s, and mother of renal failure when she was elderly. ALLERGIES: PENICILLIN. HE WAS TOLD HE WAS ALLERGIC TO THIS A CHILD, UNCERTAIN WHAT THE REACTION WAS. CURRENT MEDICATIONS: 1. Atorvastatin 20 mg daily. 2. Tamsulosin 0.4 mg daily. 3. Lisinopril/hydrochlorothiazide 20/12.5 mg daily. 4. Albuterol inhaler as needed. 5. Advair Diskus inhaled twice a day. 6. Ranitidine 150 mg daily as needed. 7. Placedo-3 fatty acids 1000 mg daily. 8. Montelukast 10 mg daily. 9. Vitamin C 500 mg daily. 10. Aspirin 81 mg daily. 11. Multivitamin daily. REVIEW OF SYSTEMS: CONSTITUTIONAL: No fevers. He had chills and sweats this morning as per HPI. EYES: No double vision or blurred vision. ENT: No congestion, drainage, or sore throat. CARDIOVASCULAR: No cardiac chest pain. No palpitations or racing heart. PULMONARY: See HPI. GASTROINTESTINAL: No abdominal pain. No nausea or vomiting. No diarrhea or constipation. He did have some anorexia for the last 3 days. GENITOURINARY: No dysuria or hematuria. MUSCULOSKELETAL: No muscle aches or joint pain. SKIN: No rashes or other lesions he has noted. NEUROLOGIC: No numbness, tingling, or focal weakness. PHYSICAL EXAMINATION: VITAL SIGNS: Blood pressure 98/54, pulse 125, respirations 22, O2 saturations 93% on room air and now on oxygen and feeling more comfortable, temperature 99.7. GENERAL: This is a well-developed, well-nourished white male, in no acute distress. HEENT: Pupils are equal, round, and reactive to light. Oropharynx clear without lesions, erythema, or exudate. NECK: Supple. No lymphadenopathy. No thyroid nodules or enlargement. No JVD. HEART: Regular rhythm. Mildly tachycardic. No murmurs, rubs, or gallops. LUNGS: Clear to auscultation bilaterally. No wheezes, crackles, or rhonchi. No increased work of breathing at this point. No wheezing. GASTROINTESTINAL: Abdomen is soft. Nontender to palpation. Normoactive bowel sounds. No hepatosplenomegaly or other masses. EXTREMITIES: No clubbing, cyanosis, or edema. SKIN: No rashes or other lesions noted. NEUROLOGIC: Intact strength and sensation in all extremities. No facial droop. PSYCHIATRIC: Alert and oriented x3. Normal mood and affect. LABORATORY DATA: White blood cell count 14,000 with an 86% neutrophilic predominance, hemoglobin 12, hematocrit 39, platelet count 571. Coagulation profile shows an INR of 1.2. Complete metabolic panel is notable for a potassium of 3.4; creatinine of 1.46, which is abnormal for him, it is usually between 0.8 and 1; glucose of 154; ALT of 58. The remainder of his CMP is normal. IMAGING STUDIES: Chest x-ray, I did review the chest x-ray done in the emergency room along with the radiologist's report. There is some evidence of infiltrate and effusion in the left lower base. CT angio of the chest and thorax showing a masslike area of consolidation in the peripheral aspect of the lingula along with reticulonodular densities in the right lower lobe suggestive of infectious or inflammatory process along with a masslike area of consolidation in the left upper lobe. This likely involves infectious process, though neoplastic process unable to be excluded. He does have a small left pleural effusion. ASSESSMENT: 1. Acute community-acquired pneumonia. We will continue Rocephin and azithromycin started in the emergency room. We will consult Pulmonology due to the severity of infection. The patient may require followup CT given his findings to make sure everything clears after the pneumonia is resolved. 2. Sepsis. The patient is tachycardic, has an increased creatinine, and he had a temporary dip in blood pressure. He is currently receiving a fluid bolus in the emergency room right now. We are checking a lactic acid and we will monitor him closely in the IMCU after his fluid bolus. I will give him a fluid infusion and I will then check up on the results of the lactic acid. Should it be elevated, we will press more fluids on him. 3. Hypertension. Given the patient's low blood pressure spell in the emergency room, we will hold antihypertensives for now and monitor closely. 4. Asthma. We will continue the patient's Advair and p.r.n. nebs. No evidence of current bronchospasm or need for steroids at this point. 5. Benign prostatic hyperplasia. We will continue patient's tamsulosin. 6. Hyperlipidemia. We will continue the patient's statin. 7. Gastrointestinal prophylaxis. Put the patient on Pepcid twice a day. 8. Deep venous thrombosis prophylaxis. Put the patient on Lovenox subcu. 9. Code status: I did discuss this with the patient he is a full code. Should he be incapacitated, he states that his medical decision maker would be his , Stacie Mcginnis. Should she be unable to help with that, then his icckosm-mu-aty would be the one to make medical decisions, his name is Nolberto Flores. Job ID: [id number]
[2019-04-10] MEDS ORDERED: Ondansetron PF 4 MG/2 ML Vial IVP PRN (10:24)
[2019-04-10] MEDS ORDERED: ASCORBATE CALCIUM 500 MG PO SCH (10:24)
[2019-04-10] MEDS ORDERED: Ondansetron ODT 4 MG TAB PO PRN (10:24)
[2019-04-10] MEDS ORDERED: Acetaminophen 650 MG Suppository PR PRN (10:24)
[2019-04-10] MEDS ORDERED: Senokot S 8.6-50 MG TAB PO PRN (10:24)
[2019-04-10 10:42] VITALS: BMI 25.4
[2019-04-10] MEDS: Guaifenesin DM 100-10/5 ML UDCUP PO PRN ×3 (11:15→23:48)
[2019-04-10] MEDS: Acetaminophen 325 MG TAB PO PRN (11:15)
[2019-04-10] MEDS: Sodium Chloride 0.9% 1,000 ML IV SCH (11:15)
--- NOTE | 2019-04-10 11:26 | PDOC.EVN ---
Event Note - Event Note Event Note: Lactic acid elevated. BP still on the low end. Mild tachycardia. Criteria for sepsis. Will give another liter of fluid. Recheck Lactic acid. Antibiotics given in the ER, no cultures. Continue to monitor closely in the IMCU.
[2019-04-10] MEDS ORDERED: Sodium Chloride 0.9% 1,000 ML IV SCH (11:30)
[2019-04-10] MEDS: HYDROcodone/Acetaminophen 5/325 mg Tablet PO PRN ×2 (15:21→15:42)
[2019-04-10] MEDS: Mometasone/Formoterol 120 PUFF INHALER INH SCH (18:46)
[2019-04-10] MEDS: Morphine 4 MG/ML VIAL SLOW IVP PRN ×2 (20:07→23:40)
[2019-04-10] MEDS: Famotidine 20 MG TAB PO SCH (20:47)
[2019-04-10] MEDS: Montelukast Sodium 10 mg Tablet PO SCH (20:47)
[2019-04-10] MEDS: Atorvastatin Calcium 20 MG TAB PO SCH (20:47)
[2019-04-10] MEDS: Aspirin 81 mg Enteric Coated Tablet PO SCH (20:47)
[2019-04-10] MEDS ORDERED: Bacteriostatic Water 30 ML VIAL FS PRN (21:29)
[2019-04-11] MEDS: Acetaminophen 325 MG TAB PO PRN (00:25)
[2019-04-11] MEDS: Sodium Chloride 0.9% 1,000 ML IV SCH ×2 (00:35→13:51)
[2019-04-11] MEDS: methylPREDNISolone Sod Succ 40 MG VIAL IVP SCH ×4 (00:38→18:44)
--- NOTE | 2019-04-11 03:34 | CON ---
DATE OF CONSULTATION: HISTORY OF PRESENT ILLNESS: Mr. Mcginnis is a very pleasant year-old male. He has been sick for about two weeks. He says he awakened early in the morning with severe pleuritic left-sided chest discomfort. He has asked his to call an ambulance, but I believe her family member decided to drive into the emergency room. His had similar illness, but recovered from that. He had a CT angiogram showing no thromboembolic disease. He did have a lingular infiltrate that was abutting the pleura, which likely explains his discomfort. PAST MEDICAL HISTORY: Remarkable for, 1. Asthma, followed by Dr. Purcell at [facility] [place]. 2. Hypertension. 3. Lipid disorder. 4. BPH. 5. History of resected colon cancer. 6. History of herniorrhaphy. 7. History of an inguinal hernia repair. 8. History of shoulder surgery on the right. SOCIAL HISTORY: He is a former smoker, not a drinker. He is , lives in town. He was in the [employer]. 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 FAMILY HISTORY: Positive for malignancies. No history of lung disease in early age. He said he had a pneumonia in 1971. ALLERGIES: REPORTS ALLERGIES TO PENICILLIN. MEDICATIONS: Prior to admission, medications have been reviewed. He was on 11 medicines including some [id number] medicines. REVIEW OF SYSTEMS: Ten-point is otherwise negative. He says he is not short of breath if he is not hurting. PHYSICAL EXAMINATION: VITAL SIGNS: Blood pressure is 103/54, heart rate is 100, respiratory rate is 22, and oximetry is 98%. HEENT: Pupils are equal. Sclerae are anicteric. Extraocular movements are full. NECK: Supple. No lymphadenopathy. LUNGS: Clear. He is not wheezing at this time. HEART: Regular rhythm. S1 and S2 are normal. ABDOMEN: Soft and nontender. EXTREMITIES: Without clubbing, cyanosis, or edema. IMPRESSION: 1. Pneumonia abutting the pleura, creating pleurisy. 2. Asthma, which is a minor problem at this time. His antimicrobial therapy coverage is adequate in my opinion. I think adding a 25 mcg fentanyl patch will help minimize his discomfort. I have also added p.r.n. morphine, which will give him faster symptomatic relief. IV steroid should be added and this will help probably more than anything, but the steroid effect will take several hours to kick in. Probably, after couple or three doses of steroids, cut his steroid dosing back significantly. If he remains afebrile, his antimicrobial therapy probably could be switched to p.o. antimicrobial therapy in 24 to 36 hours. TIME SPENT: This is a 50-minute consult, 50% of the time spent on the unit coordinating care. Job ID: [id number]
[2019-04-11 04:09] LABS: Band 25 % (5-11); Hemoglobin 10.9 g/dL (14.0-18.0); MDiff Complete? YES; Mean Corpuscular HGB CONC 32.3 g/dL (32.0-36.0); Mean Corpuscular Hemoglobin 26.2 pg (27.0-31.0); Mean Corpuscular Volume 81.1 fL (78.0-98.0); Mean Platelet Volume 6.9 fL (7.4-10.4); Metamyelocyte 1 % (0-0); Monocytes 3 % (0-10); Neutrophil 71 % (42-75); Platelet Count 465 thou/uL (130-400); Platelet Morphology Comment Appears Increased; RBC Distribution Width 14.7 % (11.5-14.5); Red Blood Cell (RBC) Count 4.17 mill/uL (4.70-6.10); White Blood Cell (WBC) Count 19.6 thou/uL (4.8-10.8)
[2019-04-11] MEDS: Morphine 4 MG/ML VIAL SLOW IVP PRN ×3 (04:14→10:46)
[2019-04-11 04:25] LABS: Anion Gap 13 mmol/L (10-20); BUN (Urea Nitrogen) 22 mg/dL (8.4-25.7); Calc. Creatinine Clearance 72 mL/min (70-130); Carbon Dioxide 21 mmol/L (23-31); Chloride 103 mmol/L (98-107); Estimated GFR-MDRD 64; Glucose 178 mg/dL (80-115); Potassium 3.7 mmol/L (3.5-5.1); Sodium 133 mmol/L (136-145)
[2019-04-11] MEDS ORDERED: cefTRIAXone\\ROCEPHIN 2 GM in Sodium Chloride 0.9% 100 ML IVPB SCH (07:00)
[2019-04-11] MEDS ORDERED: Azithromycin 500 MG in Sodium Chloride 0.9% 250 ML 250 ML IVPB SCH (07:00)
[2019-04-11] MEDS: Mometasone/Formoterol 120 PUFF INHALER INH SCH ×2 (07:41→18:22)
[2019-04-11] MEDS ORDERED: PROVENTIL INHALER 6.7 G (200 INHALATIONS) INH PRN ×2 (08:15→13:07)
[2019-04-11] MEDS: Tamsulosin HCl 0.4 MG CAP PO SCH (09:21)
[2019-04-11] MEDS: Fish Oil 1,000 MG CAP PO SCH ×2 (09:21→20:02)
[2019-04-11] MEDS: Multivit, Therapeutic 1 TAB PO SCH (09:21)
[2019-04-11] MEDS: Famotidine 20 MG TAB PO SCH ×2 (09:22→20:02)
[2019-04-11] MEDS: Enoxaparin Sodium 40 MG/0.4 ML SYRINGE SC SCH (09:32)
[2019-04-11] MEDS ORDERED: Prevnar 13-Val Conj/PF 0.5 ML SYRINGE IM ONE (11:15)
[2019-04-11] MEDS: HYDROcodone/Acetaminophen 5/325 mg Tablet PO PRN ×2 (12:16→21:44)
--- NOTE | 2019-04-11 12:41 | PDOC.HOSPP ---
- Subjective Encounter Date: 04/11/19 Encounter Time: 12:50 Subjective: Patient feeling much better. Chest pain improving. Nebs and inhaler helping. - Objective Vital Signs & Weight: Vital Signs (12 hours) Temp Pulse Resp BP Pulse Ox 04/11/19 11:26 98.1 F 109 H 20 153/78 H 94 L 04/11/19 11:00 99 F 04/11/19 08:00 95 04/11/19 07:39 102 H 25 H 100 04/11/19 07:00 98.9 F 04/11/19 04:00 99.0 F 90 20 108/64 96 04/11/19 03:55 97.3 F L 04/11/19 03:00 98.8 F 92 24 H 95/60 98 04/11/19 01:10 100.0 F H 114 H 22 H 94/48 L Weight Admit Weight 182 lb Weight 182 lb Most Recent Monitor Data Heart Rate from ECG 104 NIBP 112/59 NIBP BP-Mean 76 Respiration from ECG 21 SpO2 92 I&O: 04/10/19 04/11/19 04/12/19 06:59 06:59 06:59 Intake Total 3427 982 Output Total 620 220 Balance 2807 762 Result Diagrams: 04/11/19 03:24 04/11/19 03:24 Hospitalist ROS - Review of Systems Constitutional: denies: fever, chills Respiratory: reports: cough, shortness of breath Cardiovascular: reports: chest pain Gastrointestinal: denies: nausea, vomiting, abdominal pain Neurological: denies: weakness - Medication Medications: Active Medications Generic Name Dose Route Start Last Admin Trade Name Freq PRN Reason Stop Dose Admin Acetaminophen 650 mg 04/10/19 10:24 04/11/19 00:25 Tylenol PO 650 mg Q4H PRN Administration Headache/Fever/Mild Pain (1-3) Hydrocodone Bitart/Acetaminophen 1 tab 04/10/19 10:24 04/10/19 15:42 [place] 5/325 PO 1 tab Q4H PRN Administration Moderate Pain (4-6) Hydrocodone Bitart/Acetaminophen 2 tab 04/10/19 10:24 04/11/19 12:16 [place] 5/325 PO 2 tab Q4H PRN Administration Severe Pain (7-10) Albuterol/Ipratropium 3 ml 04/10/19 10:24 04/11/19 07:39 Duoneb NEB 3 ml [id number] PRN Administration SOB &/or Wheezing Aspirin 81 mg 04/10/19 21:00 04/10/19 20:47 Ecotrin PO 81 mg HS CHIVO Administration Atorvastatin Calcium 20 mg 04/10/19 21:00 04/10/19 20:47 Lipitor PO 20 mg HS CHIVO Administration Enoxaparin Sodium 40 mg 04/11/19 09:00 04/11/19 09:32 Lovenox SC Not Given 09 CHIVO Famotidine 20 mg 04/10/19 21:00 04/11/19 09:22 Pepcid PO 20 mg BID CHIVO Administration Fentanyl 25 mcg 04/10/19 20:30 04/10/19 20:24 Duragesic TD 25 mcg Q3D CHIVO Administration Fish Oil 1,000 mg 04/11/19 09:00 04/11/19 09:21 Fish Oil PO 1,000 mg BID CHIVO Administration Guaifenesin/Dextromethorphan 15 ml 04/10/19 10:24 04/10/19 23:48 Robitussin Dm PO 15 ml Q4H PRN Administration Cough Sodium Chloride 1,000 mls @ 75 mls/hr 04/10/19 10:24 04/11/19 00:35 Normal Saline 0.9% IV 1,000 mls .[id number] CHIVO Administration Methylprednisolone Sodium Succinate 40 mg 04/10/19 23:59 04/11/19 12:16 Solu-Medrol IVP 40 mg Q6HR CHIVO Administration Mometasone Furoate/Formoterol Fumar 2 puff 04/10/19 18:30 04/11/19 07:41 Dulera 200 Mcg/5 Mcg Inhaler INH 2 puff BID-RT CHIVO Administration Montelukast Sodium 10 mg 04/10/19 21:00 04/10/19 20:47 Singulair PO 10 mg HS CHIVO Administration Morphine Sulfate 4 mg 04/10/19 20:02 04/11/19 10:46 Morphine SLOW IVP 4 mg Q3H PRN Administration Pain Multivitamins 1 tab 04/11/19 09:00 04/11/19 09:21 Theragran PO 1 tab DAILY CHIVO Administration Sterile Water 1 ml 04/10/19 21:29 12/19/19 06:05 Bacteriostatic Water FS 1 ml PRN PRN Administration RECONSTITUTION Tamsulosin HCl 0.4 mg 04/11/19 09:00 04/11/19 09:21 Flomax PO 0.4 mg QAM CHIVO Administration - Exam General Appearance: NAD General - other findings: a bit diaphoretic Eye: anicteric sclera ENT: moist mucosa Heart: RRR, no murmur, no gallops, no rubs Respiratory: CTAB, no wheezes, no rales Respiratory - other findings: occ rhonchi left base Gastrointestinal: soft, non-tender, non-distended, normal bowel sounds Extremities: no cyanosis, no clubbing, no edema Psychiatric: normal affect, normal behavior, A&O x 3 Hosp A/P (1) Pneumonia, bacterial Code(s): J15.9 - UNSPECIFIED BACTERIAL PNEUMONIA Status: Acute (2) Sepsis Code(s): A41.9 - SEPSIS, UNSPECIFIED ORGANISM Status: Acute (3) Hypertension Code(s): I10 - ESSENTIAL (PRIMARY) HYPERTENSION Status: Chronic (4) Asthma Code(s): J45.909 - UNSPECIFIED ASTHMA, UNCOMPLICATED Status: Chronic (5) Hyperlipidemia Code(s): E78.5 - HYPERLIPIDEMIA, UNSPECIFIED Status: Chronic (6) BPH (benign prostatic hyperplasia) Code(s): N40.0 - BENIGN PROSTATIC HYPERPLASIA WITHOUT LOWER URINRY TRACT SYMP Status: Chronic - Plan continue antibiotics, out of bed/ambulate, DVT proph w/lovenox Possibly home in 1-2 days
[2019-04-11] MEDS: Cefdinir 300 MG CAP PO SCH (20:01)
[2019-04-11] MEDS: Aspirin 81 mg Enteric Coated Tablet PO SCH (20:01)
[2019-04-11] MEDS: Montelukast Sodium 10 mg Tablet PO SCH (20:02)
[2019-04-11] MEDS: Guaifenesin DM 100-10/5 ML UDCUP PO PRN (20:02)
[2019-04-11] MEDS: Atorvastatin Calcium 20 MG TAB PO SCH (20:02)
--- NOTE | 2019-04-11 21:17 | PRG ---
DATE OF SERVICE: 04/11/2019 SUBJECTIVE: Mr. Mcginnis says he is feeling better. His pleurisy is better. OBJECTIVE: VITAL SIGNS: He is afebrile. Heart rate is 92, respiratory rate is 19, oximetry is fluctuating between 92% and 97% on room air, blood pressure 126/73 this evening. LUNGS: Clear. HEART: Regular rhythm. ABDOMEN: Soft. LABORATORY DATA: White count 19.6, hemoglobin 10.9, platelets 465,000. He had 25% bands today. Sodium 133, potassium 3.7, chloride 103, bicarb 21, BUN 22, creatinine 1.1. IMPRESSION: Post-viral pneumonia with pleurisy, clinically improving. PLAN: Continue IV antibiotics today and start p.o. antimicrobial therapy tomorrow. His steroid dosing can be switched to prednisone tomorrow. Job ID: [id number]
[2019-04-12] MEDS: Sodium Chloride 0.9% 1,000 ML IV SCH (03:11)
[2019-04-12] MEDS: HYDROcodone/Acetaminophen 5/325 mg Tablet PO PRN ×3 (06:34→20:46)
[2019-04-12] MEDS: Mometasone/Formoterol 120 PUFF INHALER INH SCH ×2 (06:49→18:17)
[2019-04-12] MEDS: Famotidine 20 MG TAB PO SCH ×2 (09:40→20:48)
[2019-04-12] MEDS: predniSONE 20 MG TAB PO SCH (09:40)
[2019-04-12] MEDS: Cefdinir 300 MG CAP PO SCH ×2 (09:40→20:48)
[2019-04-12] MEDS: Fish Oil 1,000 MG CAP PO SCH ×2 (09:40→20:48)
[2019-04-12] MEDS: Tamsulosin HCl 0.4 MG CAP PO SCH (09:41)
[2019-04-12] MEDS: Azithromycin 250 MG TAB PO SCH (09:41)
[2019-04-12] MEDS: Multivit, Therapeutic 1 TAB PO SCH (09:41)
[2019-04-12] MEDS: Enoxaparin Sodium 40 MG/0.4 ML SYRINGE SC SCH (09:42)
[2019-04-12] MEDS: Guaifenesin DM 100-10/5 ML UDCUP PO PRN (16:45)
--- NOTE | 2019-04-12 19:39 | PRG ---
DATE OF SERVICE: 04/12/2019 SUBJECTIVE: Mr. Mcginnis says he is feeling better. He feels like he is close to being ready to go home. He has had no fever. OBJECTIVE: VITAL SIGNS: His vital signs have been stable. Blood pressure 131/73. Heart rates unexplainably still between 110 and 120. His respiratory rate is 18. He has no history of resting tachycardia. LUNGS: Clear. HEART: Regular rhythm. S1 and S2 are normal. ABDOMEN: Soft and nontender. EXTREMITIES: Without asymmetry or edema. IMPRESSION: Pneumonia with severe pleurisy, clinically improving. LABORATORY DATA: There is no new lab. I believe he would be a candidate to go home tomorrow. Order a TSH and see if this is suppressed. I doubt he is hyperthyroid. It may be the nebulizer treatments with giving him a resting tachycardia. He had a CT angiogram on admission. It did not show thromboembolic disease. Job ID: [id number]
[2019-04-12] MEDS: Montelukast Sodium 10 mg Tablet PO SCH (20:48)
[2019-04-12] MEDS: Aspirin 81 mg Enteric Coated Tablet PO SCH (20:48)
[2019-04-12] MEDS: guaiFENesin ER 600 MG TAB PO SCH (20:48)
[2019-04-12] MEDS: Atorvastatin Calcium 20 MG TAB PO SCH (20:48)
--- NOTE | 2019-04-12 21:19 | PDOC.HOSPP ---
- Subjective Encounter Date: 04/12/19 Encounter Time: 16:30 Subjective: Patient seen and examined for Pneumonia.SOB improving. Cough with mild production. No new complaints. No overnight events - Objective Vital Signs & Weight: Vital Signs (12 hours) Temp Pulse Resp BP BP Pulse Ox 04/12/19 19:23 98.5 F 118 H 22 H 149/74 H 95 04/12/19 18:17 114 H 16 94 L 04/12/19 18:16 126 H 16 94 L 04/12/19 16:14 97.6 F 120 H 18 131/73 98 04/12/19 14:54 110 H 16 04/12/19 11:24 98.5 F 110 H 18 113/68 93 L 04/12/19 10:46 102 H 16 Weight Admit Weight 182 lb Weight 182 lb Most Recent Monitor Data Heart Rate from ECG 104 NIBP 112/59 NIBP BP-Mean 76 Respiration from ECG 21 SpO2 92 I&O: 04/11/19 04/12/19 04/13/19 06:59 06:59 06:59 Intake Total 3427 2302 2049 Output Total 620 220 Balance 2807 2081 2049 Result Diagrams: 04/13/19 05:19 04/13/19 05:19 Radiology Reviewed by me: Yes (CTA - negative for PE, normal size heart with no effusion) Hospitalist ROS - Review of Systems Cardiovascular: denies: chest pain, palpitations, orthopnea, paroxysmal noc. dyspnea, edema, light headedness, other Gastrointestinal: denies: nausea, vomiting, abdominal pain, diarrhea, constipation, melena, hematochezia, other - Medication Medications: Active Medications Generic Name Dose Route Start Last Admin Trade Name Freq PRN Reason Stop Dose Admin Acetaminophen 650 mg 04/10/19 10:24 04/11/19 00:25 Tylenol PO 650 mg Q4H PRN Administration Headache/Fever/Mild Pain (1-3) Hydrocodone Bitart/Acetaminophen 1 tab 04/10/19 10:24 04/10/19 15:42 [place] 5/325 PO 1 tab Q4H PRN Administration Moderate Pain (4-6) Hydrocodone Bitart/Acetaminophen 2 tab 04/10/19 10:24 04/12/19 20:46 [place] 5/325 PO 2 tab Q4H PRN Administration Severe Pain (7-10) Albuterol Sulfate 2 puff 04/11/19 13:07 04/11/19 18:39 Proventil Hfa INH 2 puff Q4H PRN Administration SOB &/or Wheezing Albuterol/Ipratropium 3 ml 04/10/19 10:24 04/12/19 06:38 Duoneb NEB 3 ml [id number] PRN Administration SOB &/or Wheezing Albuterol/Ipratropium 3 ml 04/12/19 10:30 04/12/19 18:16 Duoneb NEB 3 ml [id number] CHIVO Administration Aspirin 81 mg 04/10/19 21:00 04/12/19 20:48 Ecotrin PO 81 mg HS CHIVO Administration Atorvastatin Calcium 20 mg 04/10/19 21:00 04/12/19 20:48 Lipitor PO 20 mg HS CHIVO Administration Azithromycin 250 mg 04/12/19 09:00 04/12/19 09:41 Zithromax PO 04/15/19 09:01 250 mg DAILY CHIVO Administration Cefdinir 300 mg 04/11/19 21:00 04/12/19 20:48 Omnicef PO 300 mg BID CHIVO Administration Enoxaparin Sodium 40 mg 04/11/19 09:00 04/12/19 09:42 Lovenox SC Not Given 0900 CHIVO Famotidine 20 mg 04/10/19 21:00 04/12/19 20:48 Pepcid PO 20 mg BID CHIVO Administration Fentanyl 25 mcg 04/10/19 20:30 04/10/19 20:24 Duragesic TD 25 mcg Q3D CHIVO Administration Fish Oil 1,000 mg 04/11/19 09:00 04/12/19 20:48 Fish Oil PO 1,000 mg BID CHIVO Administration Guaifenesin 600 mg 04/12/19 21:00 04/12/19 20:48 Mucinex PO 600 mg Q12HR CHIVO Administration Guaifenesin/Dextromethorphan 15 ml 04/10/19 10:24 04/12/19 16:45 Robitussin Dm PO 15 ml Q4H PRN Administration Cough Mometasone Furoate/Formoterol Fumar 2 puff 04/10/19 18:30 04/12/19 18:17 Dulera 200 Mcg/5 Mcg Inhaler INH 2 puff BID-RT CHIVO Administration Montelukast Sodium 10 mg 04/10/19 21:00 04/12/19 20:48 Singulair PO 10 mg HS CHIVO Administration Morphine Sulfate 4 mg 04/10/19 20:02 04/11/19 10:46 Morphine SLOW IVP 4 mg Q3H PRN Administration Pain Multivitamins 1 tab 04/11/19 09:00 04/12/19 09:41 Theragran PO 1 tab DAILY CHIVO Administration Prednisone 40 mg 04/12/19 08:00 04/12/19 09:40 Prednisone PO 40 mg QAM-WM CHIVO Administration Sterile Water 1 ml 04/10/19 21:29 04/11/19 06:05 Bacteriostatic Water FS 1 ml PRN PRN Administration RECONSTITUTION Tamsulosin HCl 0.4 mg 04/11/19 09:00 04/12/19 09:41 Flomax PO 0.4 mg QAM CHIVO Administration - Exam General Appearance: NAD Neck: supple, no JVD Heart: no gallops, no rubs Heart - other findings: tachycardic Respiratory: no wheezes, rales, rhonchi Gastrointestinal: soft, non-tender, normal bowel sounds Extremities: no edema Neurological: no new deficit Hosp A/P - Plan DVT proph w/SCDs Severe Sepsis due to CAP ?Gram negatives (POA) Pleurisy due to above Lactic acidosis due to sepsis CRICKET on CKD 2 Sinus tachycardia Hypokalemia Hyponatremia Mod Persistent Asthma HTN HLD BPH h/o Colon CA Chronic Anemia Ventral abd hernia PLAN: Cont Omnicef/Azithromycin Cont Prednisone Cont Nebs Add Mucinex On Fentanyl patch AM labs
[2019-04-13 05:40] LABS: #Lymphocytes 0.6 thou/uL (1.20-3.40); #Monocytes 1.1 thou/uL (0.11-0.59); #Neutrophils 16.2 thou/uL (1.40-6.50); %Basophils 0.3 % (0.0-1.0); %Eosinophils 0.1 % (0.0-10.0); %Lymphocytes 3.4 % (21.0-51.0); %Monocytes 6.3 % (0.0-10.0); %Neutrophils 89.9 % (42.0-75.0); Hemoglobin 9.4 g/dL (14.0-18.0); Mean Corpuscular HGB CONC 31.6 g/dL (32.0-36.0); Mean Corpuscular Hemoglobin 25.9 pg (27.0-31.0); Mean Corpuscular Volume 82.1 fL (78.0-98.0); Mean Platelet Volume 6.7 fL (7.4-10.4); Platelet Count 468 thou/uL (130-400); RBC Distribution Width 14.8 % (11.5-14.5); Red Blood Cell (RBC) Count 3.62 mill/uL (4.70-6.10)
[2019-04-13] MEDS: HYDROcodone/Acetaminophen 5/325 mg Tablet PO PRN ×2 (05:48→12:45)
[2019-04-13] MEDS: Guaifenesin DM 100-10/5 ML UDCUP PO PRN ×3 (05:50→23:33)
[2019-04-13 06:01] LABS: ALT (SGPT) 55 U/L (8-55); AST (SGOT) 41 U/L (5-34); Albumin 2.6 g/dL (3.4-4.8); Alkaline Phosphatase 78 U/L (40-110); Anion Gap 12 mmol/L (10-20); BUN (Urea Nitrogen) 23 mg/dL (8.4-25.7); Bilirubin, Total 0.2 mg/dL (0.2-1.2); Calc. Creatinine Clearance 95 mL/min (70-130); Calcium 8.3 mg/dL (7.8-10.44); Carbon Dioxide 25 mmol/L (23-31); Chloride 105 mmol/L (98-107); Estimated GFR-MDRD 88; Glucose 137 mg/dL (80-115); Magnesium 2.2 mg/dL (1.6-2.6); Potassium 3.6 mmol/L (3.5-5.1); Protein, Total 5.6 g/dL (5.8-8.1); Sodium 138 mmol/L (136-145)
[2019-04-13] MEDS: Mometasone/Formoterol 120 PUFF INHALER INH SCH ×2 (06:18→18:53)
[2019-04-13] MEDS ORDERED: Senokot 8.6 MG TAB PO PRN (07:01)
[2019-04-13] MEDS ORDERED: cloNIDine 0.1 MG TAB PO PRN ×2 (08:44→13:47)
[2019-04-13] MEDS ORDERED: Lisinopril/Hydrochlorothiazide 20 mg/12.5 mg Tablet PO SCH (09:00)
[2019-04-13] MEDS: Fish Oil 1,000 MG CAP PO SCH ×2 (09:15→20:58)
[2019-04-13] MEDS: Saccharomyces boulardii 250 MG CAP PO SCH (09:15)
[2019-04-13] MEDS: predniSONE 20 MG TAB PO SCH (09:16)
[2019-04-13] MEDS: Tamsulosin HCl 0.4 MG CAP PO SCH (09:16)
[2019-04-13] MEDS: Azithromycin 250 MG TAB PO SCH (09:16)
[2019-04-13] MEDS: Famotidine 20 MG TAB PO SCH ×2 (09:17→20:58)
[2019-04-13] MEDS: Cefdinir 300 MG CAP PO SCH ×2 (09:17→20:58)
[2019-04-13] MEDS: guaiFENesin ER 600 MG TAB PO SCH ×2 (09:18→20:58)
[2019-04-13] MEDS: Multivit, Therapeutic 1 TAB PO SCH (09:18)
[2019-04-13] MEDS: Polyethylene Glycol 3350 17 GM Packet PO SCH (09:19)
[2019-04-13] MEDS: Enoxaparin Sodium 40 MG/0.4 ML SYRINGE SC SCH (09:19)
[2019-04-13 09:24] LABS: Free T4 (Free Thyroxine) 0.96 ng/dL (0.70-1.48); Free Thyroxine Index 1.91 (1.4-3.1); T4 5.4 ug/dL (4.87-11.72)
[2019-04-13] MEDS ORDERED: Lorazepam 2 MG/ML VIAL SLOW IVP SCH (13:45)
--- NOTE | 2019-04-13 13:58 | PDOC.HOSPP ---
- Subjective Encounter Date: 04/13/19 Encounter Time: 09:30 Subjective: Patient seen and examined for Resp failure/Pneumonia. SOB improving. Pain controlled with Fentany patch. No new complaints. No overnight events - Objective Vital Signs & Weight: Vital Signs (12 hours) Temp Pulse Resp BP BP BP Pulse Ox 04/13/19 11:40 98.5 F 99 18 138/76 91 L 04/13/19 10:55 100 146/79 H 04/13/19 10:40 97 16 04/13/19 07:20 98.7 F 122 H 18 158/75 H 94 L 04/13/19 06:18 106 H 16 04/13/19 06:11 95 04/13/19 06:10 106 H 16 04/13/19 05:35 98.6 F 106 H 20 147/84 H 95 04/13/19 02:05 16 Weight Admit Weight 182 lb Weight 182 lb Most Recent Monitor Data Heart Rate from ECG 104 NIBP 112/59 NIBP BP-Mean 76 Respiration from ECG 21 SpO2 92 I&O: 04/12/19 04/13/19 04/14/19 06:59 06:59 06:59 Intake Total 2301 2049 Output Total 220 Balance 2081 2049 Result Diagrams: 04/13/19 05:19 04/13/19 05:19 Hospitalist ROS - Review of Systems Cardiovascular: denies: chest pain, palpitations, orthopnea, paroxysmal noc. dyspnea, edema, light headedness, other Gastrointestinal: denies: nausea, vomiting, abdominal pain, diarrhea, constipation, melena, hematochezia, other - Medication Medications: Active Medications Generic Name Dose Route Start Last Admin Trade Name Freq PRN Reason Stop Dose Admin Acetaminophen 650 mg 04/10/19 10:04/11/19 00:25 Tylenol PO 650 mg Q4H PRN Administration Headache/Fever/Mild Pain (1-3) Hydrocodone Bitart/Acetaminophen 1 tab 04/10/19 10:24 04/10/19 15:42 [place] 5/325 PO 1 tab Q4H PRN Administration Moderate Pain (4-6) Hydrocodone Bitart/Acetaminophen 2 tab 04/10/19 10:24 04/13/19 12:45 [place] 5/325 PO 2 tab Q4H PRN Administration Severe Pain (7-10) Albuterol Sulfate 2 puff 04/11/19 13:07 04/11/19 18:39 Proventil Hfa INH 2 puff Q4H PRN Administration SOB &/or Wheezing Albuterol/Ipratropium 3 ml 04/10/19 10:24 04/12/19 06:38 Duoneb NEB 3 ml [id number] PRN Administration SOB &/or Wheezing Albuterol/Ipratropium 3 ml 04/12/19 10:30 04/13/19 10:40 Duoneb NEB 3 ml [id number] CHIVO Administration Aspirin 81 mg 04/10/19 21:00 04/12/19 20:48 Ecotrin PO 81 mg HS CHIVO Administration Atorvastatin Calcium 20 mg 04/10/19 21:00 04/12/19 20:48 Lipitor PO 20 mg HS CHIVO Administration Azithromycin 250 mg 04/12/19 09:00 04/13/19 09:16 Zithromax PO 04/15/19 09:01 250 mg DAILY CHIVO Administration Cefdinir 300 mg 04/11/19 21:00 04/13/19 09:17 Omnicef PO 300 mg BID CHIVO Administration Enoxaparin Sodium 40 mg 04/11/19 09:00 04/13/19 09:19 Lovenox SC Not Given 0900 CHIVO Famotidine 20 mg 04/10/19 21:00 04/13/19 09:17 Pepcid PO 20 mg BID CHIVO Administration Fentanyl 25 mcg 04/10/19 20:30 04/10/19 20:24 Duragesic TD 25 mcg Q3D CHIVO Administration Fish Oil 1,000 mg 04/11/19 09:00 04/13/19 09:15 Fish Oil PO 1,000 mg BID CHIVO Administration Guaifenesin 600 mg 04/12/19 21:00 04/13/19 09:18 Mucinex PO 600 mg Q12HR CHIVO Administration Guaifenesin/Dextromethorphan 15 ml 04/10/19 10:24 04/13/19 10:59 Robitussin Dm PO 15 ml Q4H PRN Administration Cough Lisinopril/HCTZ 1 tab 04/13/19 09:00 04/13/19 10:55 Prinizide 20-12.5 PO 1 tab QAM CHIVO Administration Mometasone Furoate/Formoterol Fumar 2 puff 04/10/19 18:30 04/13/19 06:18 Dulera 200 Mcg/5 Mcg Inhaler INH 2 puff BID-RT CHIVO Administration Montelukast Sodium 10 mg 04/10/19 21:00 04/12/19 20:48 Singulair PO 10 mg HS CHIVO Administration Morphine Sulfate 4 mg 04/10/19 20:02 04/11/19 10:46 Morphine SLOW IVP 4 mg Q3H PRN Administration Pain Multivitamins 1 tab 04/11/19 09:00 04/13/19 09:18 Theragran PO 1 tab DAILY CHIVO Administration Polyethylene Glycol 17 gm 04/13/19 09:00 04/13/19 09:19 Miralax PO Not Given DAILY CHIVO Prednisone 40 mg 04/12/19 08:00 04/13/19 09:16 Prednisone PO 40 mg QAM-WM CHIVO Administration Saccharomyces Boulardii 250 mg 04/13/19 09:00 04/13/19 09:15 Florastor PO 250 mg DAILY CHIVO Administration Sterile Water 1 ml 04/10/19 21:29 04/11/19 06:05 Bacteriostatic Water FS 1 ml PRN PRN Administration RECONSTITUTION Tamsulosin HCl 0.4 mg 04/11/19 09:00 04/13/19 09:16 Flomax PO 0.4 mg QAM CHIVO Administration - Exam General Appearance: NAD Heart: no murmur, no rubs Heart - other findings: tachycardic in 110-120s Respiratory: no wheezes, rales, rhonchi Gastrointestinal: soft, non-tender, normal bowel sounds Extremities: no edema Hosp A/P - Plan DVT proph w/SCDs Severe Sepsis due to CAP ?Gram negatives (POA) Pleurisy due to above Lactic acidosis due to sepsis CRICKET on CKD 2 Sinus tachycardia Hypokalemia Hyponatremia Mod Persistent Asthma HTN HLD BPH h/o Colon CA Chronic Anemia Ventral abd hernia PLAN: Cont Omnicef/Azithromycin with Prednisone Cont Nebs/Mucinex On Fentanyl patch AM labs
--- NOTE | 2019-04-13 14:02 | PDOC.EVN ---
Event Note - Event Note Event Note: Patient now in Afib with RVR Will transfer to Tele Cardizem bolus followed by drip Troponins/CXR/Cardio consult/Echo
--- NOTE | 2019-04-13 14:06 | RAD ---
EXAM: XR Chest 1 View Portable PROVIDED CLINICAL HISTORY: Shortness of breath COMPARISON: 04/10/2019 FINDINGS: Cardiac and mediastinal silhouette is unchanged in appearance. Interval increase in pleural-based opa city involving the mid to inferior left hemithorax. Right lung remains clear. No evidence for pneumothorax. IMPRESSION: Increasing left basilar pleural opacity.
[2019-04-13 14:32] LABS: Troponin I 0.057 ng/mL (< 0.028)
[2019-04-13] MEDS: Diltiazem 125 MG in Sodium Chloride 0.9% 100 ML IVPB SCH ×2 (14:43→23:34)
[2019-04-13] MEDS ORDERED: Digoxin 0.5 MG/2 ML AMP ONE ×2 (14:44→14:52)
[2019-04-13] MEDS ORDERED: Digoxin 0.5 MG/2 ML AMP SLOW IVP SCH ×2 (15:00→19:00)
--- NOTE | 2019-04-13 16:00 | CON ---
DATE OF CONSULTATION: HISTORY OF PRESENT ILLNESS: Levy Mcginnis is a 68-year-old white male, who has had a 3-week history of cough with clear sputum and pleuritic left lower chest pain. These symptoms progressively worsened, so he came to the emergency room and was admitted on April 10, 2019. In the ER, he was found to have left lower lobe infiltrate on chest x-ray. CT angiography revealed no evidence of pulmonary embolism, but showed pneumonia. He was started on azithromycin and Rocephin. He had sinus tachycardia in the ER with a rate of 124 per minute. He states he has been gradually improving and then about an hour to an [id number]-half ago began to notice increased shortness of breath. He also had increased heart rate up to 190 to 200 per minute. He was transferred to telemetry, found to be in atrial fibrillation with fast ventricular response. He has been given Cardizem 10 mg IV followed by 5 mg/hour drip and digoxin 0.25 IV. He continued to have heart rates in the 180s to 190s. I instructed the nurse to give an additional digoxin 0.25 IV and increase the rate to 10 mg. His pressure has improved from systolic in the 90s up to the 130s. He will be given another 10 mg dose of diltiazem and the drip will be increased to 15. He denies any chest discomfort with this, just mild increased shortness of breath. PAST MEDICAL HISTORY: Hypertension, hyperlipidemia, benign prostatic hypertrophy, asthma, colon cancer resected last year, status post chemo and radiation therapy. PAST SURGICAL HISTORY: Resection of part of the transverse colon and sigmoid colon for colon cancer, right inguinal herniorrhaphy, right shoulder ORIF. He has a hernia that was supposed to be repaired several days ago. MEDICATIONS: 1. Albuterol inhaler p.r.n. 2. Atorvastatin 20 mg at bedtime. 3. Zyrtec 10 mg daily. 4. Lisinopril/hydrochlorothiazide 20/12.5 q.a.m. 5. Singulair 10 mg at bedtime. 6. Flomax 0.4 q.a.m. 7. Advair b.i.d. ALLERGIES: PENICILLIN. SOCIAL HISTORY: He stopped smoking almost 20 years ago. He does not drink alcohol. FAMILY HISTORY: Negative for coronary artery disease. REVIEW OF SYSTEMS: A 10-point review of systems is otherwise unremarkable. PHYSICAL EXAMINATION: VITAL SIGNS: Blood pressure 138/76, pulse of 170. HEENT: PERRL. NECK: Supple. CHEST: Reveals expiratory wheezing. CARDIOVASCULAR: S1, S2 normal without any S3, S4, or murmurs. ABDOMEN: Normal bowel sounds without tenderness or organomegaly. EXTREMITIES: Reveal 1+ pretibial edema (patient states he has never noticed this before). NEUROLOGIC: Grossly intact. SKIN: Warm and dry. LABORATORY DATA: EKG on admission revealed sinus tachycardia with possible inferior infarct, nonspecific ST-T wave changes. Hemoglobin 9.4, hematocrit 29.7, white count 03239, platelets 468,000. Sodium 138, potassium 3.6, chloride 105, carbon dioxide 25, BUN 23, creatinine 0.83. TSH is low at 0.0414. However, free T4 and free T3 are normal. Troponin I is 0.057. IMPRESSION: 1. New onset atrial fibrillation with fast ventricular response. He has had increased dyspnea. 2. Peripheral edema. 3. Community-acquired pneumonia. 4. Hypertension. 5. Hyperlipidemia. 6. History of asthma. 7. Former smoker. PLAN: As outlined above. Instructed additional digoxin 0.125 IV to be given, additional Cardizem 10 mg IV to be given in the drips and increased from 5 mg an hour to 10 mg an hour to 15 mg/hour. Once his rate has been adequately slowed, echocardiogram will be performed. He also be placed on Lovenox 1 mg/kg b.i.d. for stroke prophylaxis. We will follow the patient with you. Job ID: [id number] MTDD
--- NOTE | 2019-04-13 16:17 | PRG ---
DATE OF SERVICE: 04/13/2019 The patient had earlier atrial fibrillation with rapid ventricular response based on EKG and the patient was transferred to telemetry floor. The patient's heart rate was in 200 and that is [place] [facility] [place] the patient was attended by me. We gave him Cardizem 10 mg bolus and Cardizem drip started. The patient's blood pressure was marginal and that is why bolus fluid was also given. We also prescribed digoxin 0.5 mg one time dose and Dr. Muñiz was notified about further treatment option. The patient was asymptomatic talking, but he was diaphoretic when I was in [place]. The patient did not have any focal neurological deficit and completely asymptomatic and he was not having any chest pain or even he was not feeling palpitation. After this treatment, the patient was stabilized and he was feeling better as well as his rate was also improving. We will increase Cardizem drip to 10 mg/hour and watch for any blood pressure changes. Job ID: [id number]
[2019-04-13 17:39] LABS: Troponin I 0.047 ng/mL (< 0.028)
[2019-04-13] MEDS: Enoxaparin Sodium 80 MG/0.8 ML SYRINGE SC SCH (18:13)
[2019-04-13] MEDS ORDERED: Amiodarone 150 MG, Admixture Fee 1 EACH in Dextrose 5% in Water 100 ML IVPB SCH (18:30)
[2019-04-13] MEDS: Amiodarone 450 MG in Dextrose 5% in Water 250 ML IVPB SCH (18:36)
--- NOTE | 2019-04-13 19:14 | PRG ---
DATE OF SERVICE: 04/13/2019 SUBJECTIVE: Mr. Mcginnis developed rapid atrial fibrillation. Today, he was transferred in the telemetry unit. He was on the intermediate care unit. His tachycardia looked more like an atrial tachycardia. Cardiology is being consulted. OBJECTIVE: VITAL SIGNS: He is afebrile. He has absolutely no symptoms from his tachycardia with a rate up to 180. Respiratory rate is in the teens. Oximetry is 95% on 4 L. Blood pressure 127/56. LUNGS: Unchanged compared to yesterday. HEART: Unchanged compared to yesterday. ABDOMEN: Unchanged compared to yesterday. LABORATORY DATA: TSH was suppressed. This morning, we ordered multiple other thyroid studies which were normal, suggesting . White count 18, hemoglobin 9.4, and platelets 468. clinically stable. Atrial fibrillation. We will follow. Obviously, he cannot go home. Job ID: [id number]
[2019-04-13] MEDS: ALPRAZolam 0.25 MG TAB PO PRN (20:57)
[2019-04-13] MEDS: Aspirin 81 mg Enteric Coated Tablet PO SCH (20:58)
[2019-04-13] MEDS: Atorvastatin Calcium 20 MG TAB PO SCH (20:58)
[2019-04-13] MEDS: Montelukast Sodium 10 mg Tablet PO SCH (20:58)
[2019-04-13] MEDS ORDERED: Enoxaparin Sodium 80 MG/0.8 ML SYRINGE SC SCH (21:00)
[2019-04-13] MEDS ORDERED: Furosemide 20 MG/2 ML VIAL SLOW IVP SCH (23:15)
[2019-04-14] MEDS: HYDROcodone/Acetaminophen 5/325 mg Tablet PO PRN ×2 (00:30→05:15)
[2019-04-14] MEDS: Amiodarone 450 MG in Dextrose 5% in Water 250 ML IVPB SCH (03:03)
[2019-04-14 04:52] LABS: #Eosinphils 0.1 thou/uL (0.0-0.7); #Lymphocytes 0.9 thou/uL (1.20-3.40); #Monocytes 1.5 thou/uL (0.11-0.59); #Neutrophils 14.3 thou/uL (1.40-6.50); %Eosinophils 0.5 % (0.0-10.0); %Lymphocytes 5.1 % (21.0-51.0); %Monocytes 8.7 % (0.0-10.0); %Neutrophils 85.7 % (42.0-75.0); Hemoglobin 9.6 g/dL (14.0-18.0); Mean Corpuscular HGB CONC 31.9 g/dL (32.0-36.0); Mean Corpuscular Volume 81.6 fL (78.0-98.0); Mean Platelet Volume 6.9 fL (7.4-10.4); Platelet Count 492 thou/uL (130-400); RBC Distribution Width 14.9 % (11.5-14.5); Red Blood Cell (RBC) Count 3.69 mill/uL (4.70-6.10); White Blood Cell (WBC) Count 16.7 thou/uL (4.8-10.8)
[2019-04-14] MEDS: Enoxaparin Sodium 80 MG/0.8 ML SYRINGE SC SCH (05:15)
[2019-04-14 05:16] LABS: ALT (SGPT) 86 U/L (8-55); AST (SGOT) 59 U/L (5-34); Albumin 2.5 g/dL (3.4-4.8); Alkaline Phosphatase 86 U/L (40-110); Anion Gap 13 mmol/L (10-20); BUN (Urea Nitrogen) 17 mg/dL (8.4-25.7); Bilirubin, Total 0.4 mg/dL (0.2-1.2); Calc. Creatinine Clearance 91 mL/min (70-130); Calcium 8.4 mg/dL (7.8-10.44); Carbon Dioxide 28 mmol/L (23-31); Chloride 101 mmol/L (98-107); Estimated GFR-MDRD 85; Globulin 3.1 g/dL (2.4-3.5); Glucose 115 mg/dL (80-115); Magnesium 2.1 mg/dL (1.6-2.6); Potassium 3.7 mmol/L (3.5-5.1); Protein, Total 5.6 g/dL (5.8-8.1); Sodium 138 mmol/L (136-145)
[2019-04-14] MEDS: Mometasone/Formoterol 120 PUFF INHALER INH SCH ×2 (07:05→20:09)
[2019-04-14] MEDS: Fish Oil 1,000 MG CAP PO SCH ×2 (08:22→22:09)
[2019-04-14] MEDS: Tamsulosin HCl 0.4 MG CAP PO SCH (08:22)
[2019-04-14] MEDS: Cefdinir 300 MG CAP PO SCH ×2 (08:22→22:10)
[2019-04-14] MEDS: predniSONE 20 MG TAB PO SCH (08:22)
[2019-04-14] MEDS: guaiFENesin ER 600 MG TAB PO SCH ×2 (08:22→22:10)
[2019-04-14] MEDS: Multivit, Therapeutic 1 TAB PO SCH (08:23)
[2019-04-14] MEDS: Saccharomyces boulardii 250 MG CAP PO SCH (08:23)
[2019-04-14] MEDS: Polyethylene Glycol 3350 17 GM Packet PO SCH (08:23)
[2019-04-14] MEDS: Azithromycin 250 MG TAB PO SCH (08:23)
[2019-04-14] MEDS: Famotidine 20 MG TAB PO SCH ×2 (08:23→22:10)
[2019-04-14] MEDS ORDERED: Digoxin 0.25 MG TAB PO SCH (09:00)
[2019-04-14] MEDS ORDERED: K-Phos Neutral 250 MG TAB PO SCH (09:15)
--- NOTE | 2019-04-14 10:52 | PRG ---
DATE OF SERVICE: 04/14/2019 SUBJECTIVE: Mr. Mcginnis does really want to go home. His has some health issues that require his attention. By my review monitor this morning, he is still in atrial fib, but he had a controlled rate in the 90s. OBJECTIVE: VITAL SIGNS: His blood pressure has been stable. LUNGS: Clear. HEART: Regular rhythm. ABDOMEN: Soft. EXTREMITIES: Without edema. IMPRESSION: 1. Pneumonia. 2. Severe pleurisy secondary to pneumonia. 3. Atrial fibrillation. PLAN: He is tentatively scheduled for an echo today. I have encouraged him to stay in the hospital. Overall, he appears to be stable. Job ID: [id number]
[2019-04-14] MEDS ORDERED: Amiodarone 200 MG TAB PO SCH (14:30)
[2019-04-14] MEDS ORDERED: Furosemide 20 MG/2 ML VIAL SLOW IVP SCH (14:45)
[2019-04-14] MEDS: Guaifenesin DM 100-10/5 ML UDCUP PO PRN (15:35)
--- NOTE | 2019-04-14 16:22 | PDOC.HOSPP ---
- Subjective Encounter Date: 04/14/19 Encounter Time: 11:20 Subjective: Patient seen and examined for Resp failure/Afib with RVR. On Amiodarone drip. SOB improving. Pain controlled. No new complaints. No overnight events - Objective Vital Signs & Weight: Vital Signs (12 hours) Temp Pulse Resp BP BP Pulse Ox 04/14/19 15:37 98.0 F 98 18 145/75 H 94 L 04/14/19 11:35 98.0 F 91 18 116/61 92 L 04/14/19 08:23 84 04/14/19 07:27 98.2 F 93 18 127/61 94 L 04/14/19 07:06 84 14 Weight Admit Weight 182 lb Weight 182 lb Most Recent Monitor Data Heart Rate from ECG 104 NIBP 112/59 NIBP BP-Mean 76 Respiration from ECG 21 SpO2 92 I&O: 04/13/19 04/14/19 04/15/19 06:59 06:59 06:59 Intake Total 2049 1020 Output Total 1850 Balance 0 -830 Result Diagrams: 04/14/19 04:02 04/14/19 04:02 EKG Reviewed by me: Yes (Tele SR) Hospitalist ROS - Review of Systems Cardiovascular: denies: chest pain, palpitations, orthopnea, paroxysmal noc. dyspnea, edema, light headedness, other Gastrointestinal: denies: nausea, vomiting, abdominal pain, diarrhea, constipation, melena, hematochezia, other - Medication Medications: Active Medications Generic Name Dose Route Start Last Admin Trade Name Freq PRN Reason Stop Dose Admin Acetaminophen 650 mg 04/10/19 10:24 04/11/19 00:25 Tylenol PO 650 mg Q4H PRN Administration Headache/Fever/Mild Pain (1-3) Hydrocodone Bitart/Acetaminophen 1 tab 04/10/19 10:24 04/14/19 05:15 [place] 5/325 PO 1 tab Q4H PRN Administration Moderate Pain (4-6) Hydrocodone Bitart/Acetaminophen 2 tab 04/10/19 10:24 04/14/19 00:30 [place] 5/325 PO 2 tab Q4H PRN Administration Severe Pain (7-10) Albuterol Sulfate 2 puff 04/11/19 13:07 04/11/19 18:39 Proventil Hfa INH 2 puff Q4H PRN Administration SOB &/or Wheezing Alprazolam 0.25 mg 04/13/19 19:04 04/13/19 20:57 Xanax PO 0.25 mg BIDPRN PRN Administration Anxiety Amiodarone HCl 400 mg 04/14/19 14:30 04/14/19 15:20 Cordarone PO 04/14/19 16:30 400 mg NOW CHIVO Administration Aspirin 81 mg 04/10/19 21:00 04/13/19 20:58 Ecotrin PO 81 mg HS CHIVO Administration Atorvastatin Calcium 20 mg 04/10/19 21:00 04/13/19 20:58 Lipitor PO 20 mg HS CHIVO Administration Cefdinir 300 mg 04/11/19 21:00 04/14/19 08:22 Omnicef PO 300 mg BID CHIVO Administration Famotidine 20 mg 04/10/19 21:00 04/14/19 08:23 Pepcid PO 20 mg BID CHIVO Administration Fentanyl 25 mcg 04/10/19 20:30 04/13/19 20:56 Duragesic TD 25 mcg Q3D CHIVO Administration Fish Oil 1,000 mg 04/11/19 09:00 04/14/19 08:22 Fish Oil PO 1,000 mg BID CHIVO Administration Furosemide 20 mg 04/14/19 14:45 04/14/19 15:21 Lasix SLOW IVP 04/14/19 16:45 20 mg NOW CHIVO Administration Guaifenesin 600 mg 04/12/19 21:00 04/14/19 08:22 Mucinex PO 600 mg Q12HR CHIVO Administration Guaifenesin/Dextromethorphan 15 ml 04/10/19 10:24 04/14/19 15:35 Robitussin Dm PO 15 ml Q4H PRN Administration Cough Lisinopril/HCTZ 1 tab 04/13/19 09:00 04/13/19 10:55 Prinizide 20-12.5 PO 1 tab QAM CHIVO Administration Amiodarone HCl 450 mg/ 259 mls @ 0 mls/hr 04/13/19 18:00 04/14/19 03:03 Dextrose/Water IVPB 04/14/19 19:00 259 mls INF CHIVO Administration Protocol Per Protocol Mometasone Furoate/Formoterol Fumar 2 puff 04/10/19 18:30 04/14/19 07:05 Dulera 200 Mcg/5 Mcg Inhaler INH 2 puff BID-RT CHIVO Administration Montelukast Sodium 10 mg 04/10/19 21:00 04/13/19 20:58 Singulair PO 10 mg HS CHIVO Administration Morphine Sulfate 4 mg 04/10/19 20:02 04/11/19 10:46 Morphine SLOW IVP 4 mg Q3H PRN Administration Pain Multivitamins 1 tab 04/11/19 09:00 04/14/19 08:23 Theragran PO 1 tab DAILY CHIVO Administration Polyethylene Glycol 17 gm 04/13/19 09:00 04/14/19 08:23 Miralax PO Not Given DAILY CHIVO Saccharomyces Boulardii 250 mg 04/13/19 09:00 04/14/19 08:23 Florastor PO 250 mg DAILY CHIVO Administration Sterile Water 1 ml 04/10/19 21:29 04/11/19 06:05 Bacteriostatic Water FS 1 ml PRN PRN Administration RECONSTITUTION Tamsulosin HCl 0.4 mg 04/11/19 09:00 04/14/19 08:22 Flomax PO 0.4 mg QAM CHIVO Administration - Exam General Appearance: NAD Neck: no JVD Heart: no murmur, no gallops Respiratory: rales, rhonchi Gastrointestinal: soft, non-distended, normal bowel sounds Extremities: no edema Neurological: no new deficit Hosp A/P - Plan DVT proph w/lovenox Severe Sepsis due to CAP ?Gram negatives (POA) New onset Afib with RVR --> SR Pleurisy due to above Lactic acidosis due to sepsis CRICKET on CKD 2 Hypophosphatemia Abn LFTS Hypokalemia Hyponatremia Mod Persistent Asthma HTN HLD BPH h/o Colon CA Chronic Anemia PLAN: Cont Amiodarone drip Cont PO Digoxin On Lovenox 1mg/kg Replace Phosphorus Hold Lisinopril/HCTZ Cont Omnicef/Azithromycin with Prednisone Cont Nebs/Mucinex Pain control Await Echo Cont Tele monitoring AM labs
[2019-04-14] MEDS: K-Phos Neutral 250 MG TAB PO SCH (17:08)
[2019-04-14] MEDS ORDERED: Sodium Chloride 0.9% 10 ML ONE (20:59)
[2019-04-14] MEDS: ALPRAZolam 0.25 MG TAB PO PRN (22:09)
[2019-04-14] MEDS: Amiodarone 200 MG TAB PO SCH (22:10)
[2019-04-14] MEDS: Montelukast Sodium 10 mg Tablet PO SCH (22:10)
[2019-04-14] MEDS: Atorvastatin Calcium 20 MG TAB PO SCH (22:10)
[2019-04-14] MEDS: Aspirin 81 mg Enteric Coated Tablet PO SCH (22:10)
[2019-04-14] MEDS: Apixaban 5 MG TAB PO SCH (22:10)
[2019-04-15] MEDS: Ipratropium Bromide 2.5 ml Neb NEB PRN ×4 (03:00→22:18)
[2019-04-15 05:08] LABS: #Eosinphils 0.1 thou/uL (0.0-0.7); #Lymphocytes 0.8 thou/uL (1.20-3.40); #Monocytes 1.4 thou/uL (0.11-0.59); #Neutrophils 13.1 thou/uL (1.40-6.50); %Basophils 0.3 % (0.0-1.0); %Eosinophils 0.5 % (0.0-10.0); %Lymphocytes 5.1 % (21.0-51.0); %Monocytes 9.1 % (0.0-10.0); Hemoglobin 9.9 g/dL (14.0-18.0); Mean Corpuscular HGB CONC 32.3 g/dL (32.0-36.0); Mean Corpuscular Volume 80.4 fL (78.0-98.0); Platelet Count 501 thou/uL (130-400); RBC Distribution Width 15.1 % (11.5-14.5); White Blood Cell (WBC) Count 15.4 thou/uL (4.8-10.8)
[2019-04-15 05:32] LABS: ALT (SGPT) 93 U/L (8-55); AST (SGOT) 46 U/L (5-34); Albumin 2.5 g/dL (3.4-4.8); Alkaline Phosphatase 97 U/L (40-110); Anion Gap 9 mmol/L (10-20); BUN (Urea Nitrogen) 18 mg/dL (8.4-25.7); Bilirubin, Total 0.5 mg/dL (0.2-1.2); Calc. Creatinine Clearance 99 mL/min (70-130); Calcium 8.1 mg/dL (7.8-10.44); Carbon Dioxide 32 mmol/L (23-31); Chloride 100 mmol/L (98-107); Estimated GFR-MDRD Greater than 90; Globulin 3.1 g/dL (2.4-3.5); Glucose 104 mg/dL (80-115); Potassium 3.8 mmol/L (3.5-5.1); Protein, Total 5.6 g/dL (5.8-8.1); Sodium 137 mmol/L (136-145)
[2019-04-15 06:39] LABS: Phosphorus 2.8 mg/dL (2.3-4.7)
[2019-04-15] MEDS: Mometasone/Formoterol 120 PUFF INHALER INH SCH ×2 (07:34→18:14)
[2019-04-15] MEDS: Saccharomyces boulardii 250 MG CAP PO SCH (08:17)
[2019-04-15] MEDS: HYDROcodone/Acetaminophen 5/325 mg Tablet PO PRN (08:17)
[2019-04-15] MEDS: Multivit, Therapeutic 1 TAB PO SCH (08:18)
[2019-04-15] MEDS: Famotidine 20 MG TAB PO SCH ×2 (08:18→21:05)
[2019-04-15] MEDS: guaiFENesin ER 600 MG TAB PO SCH ×2 (08:18→21:05)
[2019-04-15] MEDS: Amiodarone 200 MG TAB PO SCH ×2 (08:18→21:05)
[2019-04-15] MEDS: K-Phos Neutral 250 MG TAB PO SCH ×2 (08:18→18:04)
[2019-04-15] MEDS: Fish Oil 1,000 MG CAP PO SCH ×2 (08:18→21:04)
[2019-04-15] MEDS: Polyethylene Glycol 3350 17 GM Packet PO SCH (08:19)
[2019-04-15] MEDS: Apixaban 5 MG TAB PO SCH ×2 (08:19→21:06)
[2019-04-15] MEDS: Tamsulosin HCl 0.4 MG CAP PO SCH (08:19)
[2019-04-15] MEDS: predniSONE 20 MG TAB PO SCH (08:19)
[2019-04-15] MEDS: Cefdinir 300 MG CAP PO SCH ×2 (08:19→21:05)
--- NOTE | 2019-04-15 17:46 | PDOC.HOSPP ---
- Subjective Encounter Date: 04/15/19 Encounter Time: 10:30 Subjective: Patient seen and examined for Afib/Pneumonia. Pain controlled. No CP. No new complaints. No overnight events - Objective Vital Signs & Weight: Vital Signs (12 hours) Temp Pulse Resp BP Pulse Ox 04/15/19 15:20 97.8 F 113 H 19 123/70 92 L 04/15/19 12:58 85 18 95 04/15/19 11:25 98.0 F 85 16 154/78 H 94 L 04/15/19 08:12 98.7 F 87 18 147/72 H 93 L 04/15/19 07:32 89 16 92 L Weight Admit Weight 182 lb Weight 184 lb Most Recent Monitor Data Heart Rate from ECG 104 NIBP 112/59 NIBP BP-Mean 76 Respiration from ECG 21 SpO2 92 I&O: 04/14/19 04/15/19 04/16/19 06:59 06:59 06:59 Intake Total 1020 840 Output Total 1850 1275 Balance -830 -435 Result Diagrams: 04/15/19 04:23 04/15/19 04:23 Additional Labs: Accuchecks 04/13/19 14:36 POC Glucose 133 H EKG Reviewed by me: Yes (Tele SR) Hospitalist ROS - Review of Systems Constitutional: denies: fever, chills, sweats, weakness, malaise, other Gastrointestinal: denies: nausea, vomiting, abdominal pain, diarrhea, constipation, melena, hematochezia, other - Medication Medications: Active Medications Generic Name Dose Route Start Last Admin Trade Name Freq PRN Reason Stop Dose Admin Acetaminophen 650 mg 04/10/19 10:24 04/11/19 00:25 Tylenol PO 650 mg Q4H PRN Administration Headache/Fever/Mild Pain (1-3) Hydrocodone Bitart/Acetaminophen 1 tab 04/10/19 10:24 04/14/19 05:15 [place] 5/325 PO 1 tab Q4H PRN Administration Moderate Pain (4-6) Hydrocodone Bitart/Acetaminophen 2 tab 04/10/19 10:24 04/15/19 08:17 [place] 5/325 PO 2 tab Q4H PRN Administration Severe Pain (7-10) Albuterol Sulfate 2 puff 04/11/19 13:07 04/11/19 18:39 Proventil Hfa INH 2 puff Q4H PRN Administration SOB &/or Wheezing Alprazolam 0.25 mg 04/13/19 19:04 04/14/19 22:09 Xanax PO 0.25 mg BIDPRN PRN Administration Anxiety Amiodarone HCl 400 mg 04/14/19 21:00 04/15/19 08:18 Cordarone PO 400 mg BID CHIVO Administration Apixaban 5 mg 04/14/19 21:00 04/15/19 08:19 Eliquis PO 5 mg BID CHIVO Administration Aspirin 81 mg 04/10/19 21:00 04/14/19 22:10 Ecotrin PO 81 mg HS CHIVO Administration Atorvastatin Calcium 20 mg 04/10/19 21:00 04/14/19 22:10 Lipitor PO 20 mg HS CHIVO Administration Cefdinir 300 mg 04/11/19 21:00 04/15/19 08:19 Omnicef PO 300 mg BID CHIVO Administration Famotidine 20 mg 04/10/19 21:00 04/15/19 08:18 Pepcid PO 20 mg BID CHIVO Administration Fentanyl 25 mcg 04/10/19 20:30 04/13/19 20:56 Duragesic TD 25 mcg Q3D CHIVO Administration Fish Oil 1,000 mg 04/11/19 09:00 04/15/19 08:18 Fish Oil PO 1,000 mg BID CHIVO Administration Guaifenesin 600 mg 04/12/19 21:00 04/15/19 08:18 Mucinex PO 600 mg Q12HR CHIVO Administration Guaifenesin/Dextromethorphan 15 ml 04/10/19 10:24 04/14/19 15:35 Robitussin Dm PO 15 ml Q4H PRN Administration Cough Ipratropium Pe[place] 2.5 ml 04/14/19 12:00 04/15/19 12:58 Atrovent NEB 2.5 ml Q4H PRN Administration SOB &/or Wheezing Mometasone Furoate/Formoterol Fumar 2 puff 04/10/19 18:30 04/15/19 07:34 Dulera 200 Mcg/5 Mcg Inhaler INH 2 puff BID-RT CHIVO Administration Montelukast Sodium 10 mg 04/10/19 21:00 04/14/19 22:10 Singulair PO 10 mg HS CHIVO Administration Morphine Sulfate 4 mg 04/10/19 20:02 04/11/19 10:46 Morphine SLOW IVP 4 mg Q3H PRN Administration Pain Multivitamins 1 tab 04/11/19 09:00 04/15/19 08:18 Theragran PO 1 tab DAILY CHIVO Administration Phosphorus 500 mg 04/14/19 17:00 04/15/19 08:18 Kphos Neutral PO 500 mg BID-WM CHIVO Administration Polyethylene Glycol 17 gm 04/13/19 09:00 04/15/19 08:19 Miralax PO Not Given DAILY CHIVO Prednisone 20 mg 04/15/19 08:00 04/15/19 08:19 Prednisone PO 20 mg QAM-WM CHIVO Administration Saccharomyces Boulardii 250 mg 04/13/19 09:00 04/15/19 08:17 Florastor PO 250 mg DAILY CHIVO Administration Sterile Water 1 ml 04/10/19 21:29 04/11/19 06:05 Bacteriostatic Water FS 1 ml PRN PRN Administration RECONSTITUTION Tamsulosin HCl 0.4 mg 04/11/19 09:00 04/15/19 08:19 Flomax PO 0.4 mg QAM CHIVO Administration - Exam General Appearance: NAD Neck: supple, no JVD Heart: no gallops, no rubs Respiratory: rales, rhonchi Gastrointestinal: soft, non-distended Extremities: no edema Hosp A/P - Plan Severe Sepsis due to CAP ?Gram negatives (POA) New onset Afib with RVR --> SR Pleurisy due to above - on Fentanyl patch Lactic acidosis due to sepsis CRICKET on CKD 2 - resolved Hypophosphatemia Abn LFTS Hypokalemia Hyponatremia Mod Persistent Asthma HTN HLD BPH h/o Colon CA Chronic Anemia Chronic diastolic HF PLAN: Cont oral Amiodarone loading Started on Eliquis Cont Omnicef with Prednisone Cont Nebs/Mucinex Pain control Echo reviewed DC planning
[2019-04-15] MEDS: Aspirin 81 mg Enteric Coated Tablet PO SCH (21:04)
[2019-04-15] MEDS: Atorvastatin Calcium 20 MG TAB PO SCH (21:05)
[2019-04-15] MEDS: Montelukast Sodium 10 mg Tablet PO SCH (21:05)
[2019-04-16] MEDS: Ipratropium Bromide 2.5 ml Neb NEB PRN ×3 (02:42→10:16)
[2019-04-16] MEDS: Mometasone/Formoterol 120 PUFF INHALER INH SCH (06:40)
[2019-04-16] MEDS: predniSONE 20 MG TAB PO SCH (08:10)
[2019-04-16] MEDS: Polyethylene Glycol 3350 17 GM Packet PO SCH (08:10)
[2019-04-16] MEDS: Famotidine 20 MG TAB PO SCH (08:10)
[2019-04-16] MEDS: K-Phos Neutral 250 MG TAB PO SCH (08:10)
[2019-04-16] MEDS: Tamsulosin HCl 0.4 MG CAP PO SCH (08:11)
[2019-04-16] MEDS: guaiFENesin ER 600 MG TAB PO SCH (08:11)
[2019-04-16] MEDS: Fish Oil 1,000 MG CAP PO SCH (08:11)
[2019-04-16] MEDS: Saccharomyces boulardii 250 MG CAP PO SCH (08:11)
[2019-04-16] MEDS: Cefdinir 300 MG CAP PO SCH (08:11)
[2019-04-16] MEDS: Apixaban 5 MG TAB PO SCH (08:11)
[2019-04-16] MEDS: Multivit, Therapeutic 1 TAB PO SCH (08:11)
[2019-04-16] MEDS: Amiodarone 200 MG TAB PO SCH (08:11)
--- NOTE | 2019-04-16 09:36 | PRG ---
DATE OF SERVICE: 04/16/2019 SUBJECTIVE: Mr. Mcginnis is in no distress. He has been cleared by Cardiology to go home. OBJECTIVE: VITAL SIGNS: He is afebrile. Heart rate is in the 80s, respiratory rate 16, oximetry is 94, blood pressure 143/73. LUNGS: Clear. HEART: Regular rhythm. ABDOMEN: Soft. Echocardiogram shows normal ventricle, but PA flow reversal. IMPRESSION: 1. Pneumonia, clinically stable. 2. Underlying asthma, not a huge problem this admission. I have written a prescription for nebulizer and DuoNeb. 3. Mild elevation in liver enzymes. 4. Atrial fibrillation, new this admission with diastolic dysfunction. PLAN: Follow up with me in 1 to 2 months with a chest x-ray. Plan is to follow up with Dr. Muñiz. I will see him sooner if needed. I have given him my phone number. Job ID: [id number]
--- NOTE | 2019-04-16 10:46 | DIS ---
DATE OF ADMISSION: 04/10/2019 DATE OF DISCHARGE: 04/16/2019 DISCHARGE DISPOSITION: Home. FOLLOWUP: 1. Follow up with primary care physician at [facility]. 2. Follow up with Pulmonary, Dr. Ortiz in 2 to 3 weeks. 3. Follow up with Dr. Rupesh Muñiz in 2 to 3 weeks. ALLERGIES: THE PATIENT IS ALLERGIC TO PENICILLIN. THE PATIENT WAS SEEN AND EXAMINED ON THE DAY OF DISCHARGE. DENIES ANY NEW COMPLAINTS. SHORTNESS OF BREATH HAS IMPROVED. THE PATIENT REMAINED IN SINUS RHYTHM. DISCHARGE MEDICATIONS: 1. Prednisone 20 mg daily for another four days. 2. Florastor 250 mg daily for 2 weeks. 3. Atrovent nebulizer treatment as needed. 4. Omnicef 300 mg b.i.d. #7. 5. Eliquis 5 mg b.i.d. 6. Amiodarone taper as directed. 7. Mucinex 600 mg b.i.d. All other home medications were left unchanged. INPATIENT CONSULTANTS: 1. Cardiology, Dr. Muñiz. 2. Pulmonary, Dr. Ortiz. BRIEF HOSPITAL COURSE: The patient is a 68-year-old male with asthma and former smoker, presented to the hospital with cough and shortness of breath with significant pleuritic chest pain. His chest x-ray in the emergency room was consistent with left lower lobe infiltrate. He underwent a CT angiogram of the chest that was negative for pulmonary embolism. It showed a masslike consolidation seen in the peripheral aspect on the lingula. The CT also showed COPD with pleural and parenchymal changes. He was monitored on the medical floor. He was started on empiric antibiotics. He was also evaluated by Pulmonary, Dr. Ortiz. His pain was controlled with fentanyl patch along with steroids. While on the medical floor, the patient developed atrial fibrillation with rapid ventricular response with heart rate in 190s to 200s on the April 13, 2019. He was transferred to telemetry unit. He was started on Cardizem drip without much help. Later on, Cardizem drip was changed to amiodarone drip. Amiodarone has been changed to oral. He has been started on anticoagulation. He understands the risk associated with anticoagulation. Echocardiogram showed ejection fraction 60% to 65% with diastolic dysfunction, mild mitral regurgitation, and mild tricuspid regurgitation. He has been cleared by Cardiology and Pulmonary for discharge. FINAL DIAGNOSES: 1. Severe sepsis secondary to community-acquired pneumonia, suspected gram-negative organism. 2. New onset atrial fibrillation with rapid ventricular response converted to sinus rhythm after amiodarone. 3. Significant pleuritic chest pain due to severe sepsis. 4. Lactic acidosis secondary to sepsis. 5. Acute kidney injury on chronic kidney disease stage 2, resolved. His creatinine on the day of discharge is 0.83. 6. Hypophosphatemia, replaced. 7. Abnormal LFTs probably secondary to sepsis. 8. Moderate protein calorie malnutrition, present on admission. 9. Hypokalemia. 10. Hyponatremia. 11. Moderate persistent asthma. 12. Hypertension. 13. Hyperlipidemia. 14. Benign prostatic hypertrophy. 15. Chronic anemia. 16. Chronic diastolic heart failure. 17. History of colon cancer. 18. Type 2 myocardial infarction, resolved. 19. Abnormal TSH with normal free T3 and free T4. His TSH was 0.041. PLAN: Plan was discussed with the patient in detail, he stated understanding. Job ID: [id number]
[2019-04-16 11:44] VITALS: BP 137/66; TEMP 98.4
== END 2019-04-16 12:30 | disposition home or self-care (01) | DRG 871 ==
LOC: ERS 05:40 → IMCU/EMU 10:30 → T4-A 04-11 11:30 → 2NO 04-13 14:44
PROVIDERS: ADMIT Emergency Medicine; ATTEND Emergency Medicine
DX: A41.50 Gram-negative sepsis, unspecified (principal); J15.6 Pneumonia due to other Gram-negative bacteria; I21.A1 Myocardial infarction type 2; E87.2 Acidosis; N17.9 Acute kidney failure, unspecified; E44.0 Moderate protein-calorie malnutrition; I13.0 Hypertensive heart and chronic kidney disease with heart failure and stage 1 through stage 4 chronic kidney disease, or unspecified chronic kidney disease; E87.1 Hypo-osmolality and hyponatremia; N18.2 Chronic kidney disease, stage 2 (mild); E83.39 Other disorders of phosphorus metabolism; E87.6 Hypokalemia; J45.40 Moderate persistent asthma, uncomplicated; E78.5 Hyperlipidemia, unspecified; N40.0 Benign prostatic hyperplasia without lower urinary tract symptoms; D63.1 Anemia in chronic kidney disease; R65.20 Severe sepsis without septic shock; I48.91 Unspecified atrial fibrillation; Z88.0 Allergy status to penicillin; Z92.21 Personal history of antineoplastic chemotherapy; Z92.3 Personal history of irradiation; Z68.25 Body mass index [BMI] 25.0-25.9, adult; Z85.038 Personal history of other malignant neoplasm of large intestine; Z79.51 Long term (current) use of inhaled steroids; Z87.891 Personal history of nicotine dependence; Z79.899 Other long term (current) drug therapy; Z79.82 Long term (current) use of aspirin
CPT/HCPCS: 36415; 36416; 71045; 71275; 80048; 80053; 83605; 83735; 84100; 84436; 84439; 84443; 84479; 84480; 84481; 84484; 85025; 85610; 85730; 93005; 93010; 93306; 94640; 96365; 96375; J0282; J0456; J0696; J1160; J1650; J1885; J1940; J2270; J2920; J3490; J7050; J7070; J7512; J7611; J7620

== ENCOUNTER 2019-04-29 08:11 | Outpatient (CLI) | payer MEDICARE, OTHER ==
--- NOTE | 2019-04-29 08:34 | RAD ---
XR Chest Pa Lat @ POB History: Dyspnea Comparison: None. Findings: Loculated left hydropneumothorax is similar versus extra pleural blood vertebral fistulous versus abscess. Possible foreign body within the distal left mainstem bronchus. Impression: 1. Relative to the most recent chest radiograph, there is now an air-fluid level of the left peripher al pleural opacity. This may reflect a bronchopleural fistula, abscess, or hydropneumothorax. The lingular mass is not well seen. 2. Linear radiopacities object over the left hilum likely a foreign object in the distal left mainste m bronchus. Bronchoscopy warranted.
== END 2019-04-29 08:12 | disposition home or self-care (01) ==
LOC: RAD 08:11
PROVIDERS: ATTEND Internal Medicine Critical Care Medicine
DX: R06.00 Dyspnea, unspecified (principal); R91.8 Other nonspecific abnormal finding of lung field
CPT/HCPCS: 71046

== ENCOUNTER 2019-05-01 07:54 | Inpatient (IN) | payer MEDICARE, OTHER ==
[2019-04-30 13:00] VITALS: BMI 23.7
[2019-05-01 09:22] LABS: #Eosinphils 0.1 thou/uL (0.0-0.7); #Lymphocytes 0.6 thou/uL (1.20-3.40); #Monocytes 0.6 thou/uL (0.11-0.59); #Neutrophils 6.2 thou/uL (1.40-6.50); %Basophils 0.5 % (0.0-1.0); %Lymphocytes 8.5 % (21.0-51.0); %Monocytes 7.5 % (0.0-10.0); %Neutrophils 82.6 % (42.0-75.0); Hemoglobin 10.6 g/dL (14.0-18.0); Mean Corpuscular HGB CONC 31.3 g/dL (32.0-36.0); Mean Corpuscular Hemoglobin 25.7 pg (27.0-31.0); Mean Corpuscular Volume 82.2 fL (78.0-98.0); Mean Platelet Volume 6.6 fL (7.4-10.4); Platelet Count 404 thou/uL (130-400); RBC Distribution Width 17.1 % (11.5-14.5); Red Blood Cell (RBC) Count 4.13 mill/uL (4.70-6.10); White Blood Cell (WBC) Count 7.5 thou/uL (4.8-10.8)
[2019-05-01 09:34] LABS: Anion Gap 14 mmol/L (10-20); BUN (Urea Nitrogen) 8 mg/dL (8.4-25.7); Calc. Creatinine Clearance 78 mL/min (70-130); Calcium 8.9 mg/dL (7.8-10.44); Carbon Dioxide 26 mmol/L (23-31); Chloride 99 mmol/L (98-107); Estimated GFR-MDRD 77; Glucose 103 mg/dL (80-115); Potassium 3.9 mmol/L (3.5-5.1); Sodium 135 mmol/L (136-145)
[2019-05-01] MEDS ORDERED: Lidocaine 1.5%/Epinephrine 1:200,000 5 ML AMPUL IJ ONE (09:34)
[2019-05-01] MEDS ORDERED: PHENYLEPHRINE-NS 100 MCG/ML 10 ML SYRINGE ONE ×2 (09:34→11:03)
[2019-05-01] MEDS ORDERED: PROPOFOL 200 MG/20 ML VIAL ONE (09:34)
[2019-05-01] MEDS ORDERED: Rocuronium Bromide 10 MG/ML (10ML VIAL) ONE (09:34)
[2019-05-01] MEDS ORDERED: Ondansetron PF 4 MG/2 ML Vial ONE (09:34)
[2019-05-01] MEDS ORDERED: ePHEDrine/0.9% NaCl/PF SYRINGE 50 mg/10 ml ONE (09:34)
[2019-05-01] MEDS ORDERED: Fentanyl 100 MCG/2 ML VIAL ONE (09:45)
[2019-05-01] MEDS ORDERED: Clindamycin/D5W 900 mg/50 ml Premix Bag ONE ×2 (09:55→15:49)
[2019-05-01] MEDS ORDERED: Levofloxacin 500 mg/D5W 100 ml Premix Bag ONE (09:55)
[2019-05-01] MEDS ORDERED: Lidocaine 1.5% w/Epi 1:200K 30 ML VIAL (Epid Use) ONE (10:01)
[2019-05-01] MEDS ORDERED: Lidocaine 1% (PF) 30 ML VIAL ONE (10:01)
[2019-05-01] MEDS ORDERED: Ropivacaine 0.2% HCl/PF 20 ML ONE (10:40)
[2019-05-01] MEDS ORDERED: Hydrocerin (Eucerin) Cream 120 gm Jar TOP PRN (11:00)
[2019-05-01] MEDS ORDERED: diphenhydrAMINE 50 MG/ML VIAL IM PRN (11:00)
[2019-05-01] MEDS ORDERED: Zolpidem Tartrate 5 MG TAB PO PRN (11:00)
[2019-05-01] MEDS ORDERED: Promethazine HCl 25 MG SUPP PR PRN (11:00)
[2019-05-01] MEDS ORDERED: Naloxone HCl 0.4 mg/ml Vial IV PRN (11:00)
[2019-05-01] MEDS ORDERED: Promethazine HCl 25 MG/ML VIAL IM PRN ×3 (11:00→13:05)
[2019-05-01] MEDS ORDERED: Naloxone HCl 0.4 mg/ml Vial IVP PRN (11:00)
[2019-05-01] MEDS ORDERED: diphenhydrAMINE 50 MG/ML VIAL IVP PRN (11:00)
[2019-05-01] MEDS ORDERED: Ondansetron PF 4 MG/2 ML Vial IVP PRN ×2 (11:00→13:05)
[2019-05-01] MEDS ORDERED: Bupivacaine 0.25% 10 ML VIAL EPIDURAL PRN (11:00)
[2019-05-01] MEDS ORDERED: Phenylephrine HCL 10 MG/ML VIAL ONE (11:05)
[2019-05-01] MEDS ORDERED: Ondansetron HCl/PF 4 MG/2 ML Vial IVP PRN (13:00)
[2019-05-01] MEDS ORDERED: Promethazine HCl 25 MG/ML VIAL SLOW IVP PRN (13:00)
[2019-05-01] MEDS ORDERED: HYDROcodone/Acetaminophen 5/325 mg Tablet PO PRN ×2 (13:05)
[2019-05-01] MEDS ORDERED: Sodium Chloride 0.9% 1,000 ML IV SCH (13:05)
[2019-05-01] MEDS ORDERED: Insulin Regular 300 UNITS/3 ML VIAL SC PRN (13:05)
[2019-05-01] MEDS ORDERED: niCARdipine 25 MG in Sodium Chloride 0.9% 250 ML 250 ML IVPB PRN (13:05)
[2019-05-01] MEDS ORDERED: Phenylephrine 10 MG/NS 250 ML 250 ML IVPB PRN (13:05)
[2019-05-01] MEDS ORDERED: Norepinephrine 8 MG/0.9% NS 250 ML IVPB PRN (13:05)
--- NOTE | 2019-05-01 13:20 | RAD ---
PORTABLE CHEST 1 VIEW: Date: 05/01/2019 Time: 1312 hours HISTORY: Status post thoracotomy. FINDINGS/IMPRESSION: Comparison made with exam of 04/29/2019. There has been interval placement of a left-sided chest tube. Heart size stable. No pneumothorax seen . POS: [facility]
--- NOTE | 2019-05-01 13:46 | OP ---
DATE OF PROCEDURE: 05/01/2019 PREOPERATIVE DIAGNOSIS: Empyema, left chest, trapped left lower lobe. PROCEDURE PERFORMED: Thoracoscopy converted to thoracotomy with decortication of the left lower lobe. ANESTHESIA: General. ESTIMATED BLOOD LOSS: Less than 150. DESCRIPTION OF PROCEDURE: After adequate anesthesia had been obtained, the patient was placed in the right lateral decubitus position and prepped and draped. An incision was made and a 5-mm port and scope were then inserted and there was white fibrinous material. This was mobilized with the scope and a second port site made and actually a finger was inserted here to break down the loculations. With a combination of suction and aspiration, and then using a grasper, the area was totally cleaned up, however, the lower lobe would not inflate. A thoracotomy incision was made, mobilizing the latissimus and retracting it laterally. Chest was then entered and using a Kittner and pickups, peel was removed from the entire lower lobe. Following this, a #32 right angle chest tube was placed. The upper lobe was adherent to the chest wall and was not mobilized. The rib was reapproximated with a single [id number] catgut suture. Muscles were allowed to fall into their normal positions and the subcutaneous tissue and skin were closed in layers. Cultures were sent and a segment of the peel sent as well for histology while fibrinous material was sent for culture. Job ID: [id number]
[2019-05-01] MEDS: Clindamycin/D5W 900 MG in Premix Bag 1 BAG IVPB SCH ×2 (15:50→20:21)
[2019-05-02] MEDS: fentaNYL Citrate/PF 500 MCG, Bupivacaine 10 ML in Sodium Chloride 0.9% 80 ML EPIDURAL SCH ×2 (01:09→14:05)
[2019-05-02 04:07] LABS: #Eosinphils 0.1 thou/uL (0.0-0.7); #Lymphocytes 0.8 thou/uL (1.20-3.40); #Monocytes 0.8 thou/uL (0.11-0.59); #Neutrophils 7.4 thou/uL (1.40-6.50); %Basophils 0.3 % (0.0-1.0); %Eosinophils 1.1 % (0.0-10.0); %Lymphocytes 8.5 % (21.0-51.0); %Monocytes 9.2 % (0.0-10.0); Hemoglobin 9.4 g/dL (14.0-18.0); Mean Corpuscular HGB CONC 30.5 g/dL (32.0-36.0); Mean Corpuscular Hemoglobin 25.1 pg (27.0-31.0); Mean Corpuscular Volume 82.2 fL (78.0-98.0); Mean Platelet Volume 6.9 fL (7.4-10.4); Platelet Count 344 thou/uL (130-400); Red Blood Cell (RBC) Count 3.75 mill/uL (4.70-6.10); White Blood Cell (WBC) Count 9.1 thou/uL (4.8-10.8)
[2019-05-02 04:21] LABS: Anion Gap 11 mmol/L (10-20); BUN (Urea Nitrogen) 9 mg/dL (8.4-25.7); Calc. Creatinine Clearance 0 mL/min (70-130); Calcium 7.9 mg/dL (7.8-10.44); Carbon Dioxide 26 mmol/L (23-31); Chloride 101 mmol/L (98-107); Estimated GFR-MDRD 88; Glucose 99 mg/dL (80-115); Potassium 4.7 mmol/L (3.5-5.1); Sodium 133 mmol/L (136-145)
[2019-05-02] MEDS: Clindamycin/D5W 900 MG in Premix Bag 1 BAG IVPB SCH ×2 (04:40→09:58)
--- NOTE | 2019-05-02 09:12 | RAD ---
CHEST 1 VIEW: HISTORY: Thoracotomy. COMPARISON: Radiograph 05/01/2019. FINDINGS: A left thoracostomy tube is similar. A pneumothorax in the left lung base is similar. The periphera l pleural opacity of the chest is similar. IMPRESSION: Unchanged examination of the chest. POS: [facility]
[2019-05-02] MEDS: Amiodarone 200 MG TAB PO SCH (09:59)
[2019-05-02] MEDS: Tamsulosin HCl 0.4 MG CAP PO SCH (09:59)
[2019-05-02] MEDS: Polyethylene Glycol 3350 17 GM Packet PO SCH (09:59)
[2019-05-02] MEDS: diphenhydrAMINE 25 MG CAP PO PRN ×4 (11:21→21:31)
--- NOTE | 2019-05-02 19:39 | PRG ---
DATE OF SERVICE: 05/02/2019 SUBJECTIVE: Levy Mcginnis has no complaints. OBJECTIVE: VITAL SIGNS: Stable. He is afebrile. Heart rate is 87, respiratory rate is 18, oximetry is 92% on room air, blood pressure is 100/53. He has a small air leak. LUNGS: Clear. HEART: Regular rhythm. ABDOMEN: Soft. LABORATORY DATA: White count 9.1, hemoglobin 9.4, platelets 344. Electrolytes are normal. IMPRESSION: Status post decortication of a sterile parapneumonic effusion. He has a small air leak, so obviously, the chest tube will be in a little while longer. He has had no organisms seen on his Gram stain, and his cultures are negative at 24 hours. We will continue supportive care. Job ID: [id number]
[2019-05-02] MEDS ORDERED: HYDROcodone/Acetaminophen 5/325 mg Tablet PO PRN (21:17)
[2019-05-02] MEDS: Acetaminophen 500 MG TAB PO PRN (21:31)
[2019-05-03] MEDS: diphenhydrAMINE 25 MG CAP PO PRN ×9 (00:29→21:39)
[2019-05-03] MEDS: fentaNYL Citrate/PF 500 MCG, Bupivacaine 10 ML in Sodium Chloride 0.9% 80 ML EPIDURAL SCH ×2 (02:35→15:33)
[2019-05-03] MEDS: Acetaminophen 500 MG TAB PO PRN (06:34)
--- NOTE | 2019-05-03 08:26 | RAD ---
Portable frontal chest radiograph: 05/03/2019 COMPARISON: 05/02/2019 HISTORY: Evaluate chest following thoracotomy. FINDINGS: There is a stable chest tube in the lateral aspect of the left lung base. There is dense no nspecific pleural and parenchymal opacity in the left lung base, stable. No pneumothorax noted on either side. Right lung appears clear. Small volume stable subcutaneous emphysema is seen involving the lateral aspect of the left chest wal l inferiorly. IMPRESSION: Stable appearance of the chest as described above.
[2019-05-03] MEDS: Amiodarone 200 MG TAB PO SCH (08:53)
[2019-05-03] MEDS: Tamsulosin HCl 0.4 MG CAP PO SCH (08:53)
[2019-05-03] MEDS: Polyethylene Glycol 3350 17 GM Packet PO SCH (08:54)
--- NOTE | 2019-05-03 15:20 | EKG ---
Test Reason : PREOP Blood Pressure : / mmHG Vent. Rate : 084 BPM Atrial Rate : 084 BPM P-R Int : 132 ms QRS Dur : 096 ms QT Int : 378 ms P-R-T Axes : 069 -04 060 degrees QTc Int : 446 ms Normal sinus rhythm Abnormal ECG When compared with ECG of 14-APR-2019 02:54, (Unconfirmed) Premature atrial complexes are no longer Present Minimal criteria for Anterior infarct are no longer Present Non-specific change in ST segment in Inferior leads Confirmed by DR. Sophia RIVAS ([id number]) on 05/03/2019 3:20:10 PM Referred By: LEONARDO Confirmed By:DR. Sophia RIVAS
[2019-05-04] MEDS: Acetaminophen 500 MG TAB PO PRN ×2 (02:15→17:41)
[2019-05-04] MEDS: diphenhydrAMINE 25 MG CAP PO PRN (02:15)
[2019-05-04] MEDS: fentaNYL Citrate/PF 500 MCG, Bupivacaine 10 ML in Sodium Chloride 0.9% 80 ML EPIDURAL SCH ×2 (05:24→17:52)
--- NOTE | 2019-05-04 08:21 | RAD ---
XR Chest 1 View Portable History: Thoracotomy Comparison: Radiograph prior day Findings: Exam is limited due to leftward patient rotation. Left thoracostomy tube is similar. Layeri ng left effusion. No pneumothorax. Left basilar opacity is similar. Subcutaneous emphysema is slightly improving. Impression: Similar examination of the chest given the limitation of leftward patient rotation.
[2019-05-04] MEDS: Amiodarone 200 MG TAB PO SCH (08:53)
[2019-05-04] MEDS: Polyethylene Glycol 3350 17 GM Packet PO SCH (08:53)
[2019-05-04] MEDS: Tamsulosin HCl 0.4 MG CAP PO SCH (08:53)
--- NOTE | 2019-05-04 13:32 | PRG ---
DATE OF SERVICE: 05/04/2019 SUBJECTIVE: Levy Mcginnis is status post decortication. Chest tube in place. X-ray looks stable with some pleural thickening. OBJECTIVE: VITAL SIGNS: Temperature 99, pulse 74, respiratory rate 20, saturation is 96% on L, and blood pressure 106/59. GENERAL: Denies any pain or discomfort. CHEST: Decreased breath sounds and wheezing. CARDIAC: Normal S1, S2. No gallops. ABDOMEN: No masses. ASSESSMENT AND PLAN: Decortication. Cultures negative. Continue present treatment. We will follow. Job ID: [id number]
[2019-05-05] MEDS: fentaNYL Citrate/PF 500 MCG, Bupivacaine 10 ML in Sodium Chloride 0.9% 80 ML EPIDURAL SCH (05:53)
[2019-05-05] MEDS: Amiodarone 200 MG TAB PO SCH (08:15)
[2019-05-05] MEDS: Tamsulosin HCl 0.4 MG CAP PO SCH (08:15)
[2019-05-05] MEDS: Polyethylene Glycol 3350 17 GM Packet PO SCH (08:15)
--- NOTE | 2019-05-05 08:19 | RAD ---
XR Chest 1 View Portable History: Decortication Comparison: Radiograph prior day Findings: Left thoracostomy tube is similar. Slight interval size increase layering left effusion. Tr mian left extrapleural gas. Subcutaneous emphysema is similar. Impression: Slight interval size increase layering left effusion.
[2019-05-05 11:16] VITALS: BP 134/66; TEMP 98.3
--- NOTE | 2019-05-05 13:06 | PRG ---
DATE OF SERVICE: 05/05/2019 SUBJECTIVE: He is status post decortication. He is going home. OBJECTIVE: VITAL SIGNS: Temperature 98, pulse 82, respiratory rate 16, saturations 90% on room air, blood pressure 134/66. GENERAL: Denies any pain or discomfort. His chest tube was removed. CHEST: Decreased breath sounds. No wheezing. CARDIAC: Normal S1, S2. No gallops. ABDOMEN: No evidence of mass. DIAGNOSTIC STUDIES: X-ray shows some pleural thickening on the left side, some blunting, some loss of volume. ASSESSMENT: Status post decortication. Disposition to home. Follow up with Dr. Ortiz. Job ID: [id number]
--- NOTE | 2019-05-06 10:03 | PRG ---
DATE OF SERVICE: 05/03/2019 SUBJECTIVE: Mr. Mcginnis is doing well. He still has small air leak. His hemodynamics are stable. OBJECTIVE: VITAL SIGNS: He is afebrile. Oximetry is 93 to 94 on room air. Blood pressure 108/56. LUNGS: Remarkable for equal breath sounds. He went for a walk to water [place] today and did well with that. IMPRESSION AND PLAN: Pneumothorax after decortication. This is a small air leak, so hopefully this will close shortly. I am surprised to how patient he is with regards to being discharged. His is doing well at home, so he is content with staying as long as necessary. We will continue with supportive care. Job ID: [id number]
--- NOTE | 2019-05-06 13:59 | DIS ---
DATE OF ADMISSION: 05/01/2019 DATE OF DISCHARGE: 05/05/2019 The patient was admitted for a trapped left lower lobe and possible empyema. He underwent thoracoscopy/thoracotomy with decortication of the lower lobe. Cultures being negative. Postoperatively, he did well with no recurrence of his atrial fibrillation. He will be discharged home on his admitting medicines with instructions to hold his lisinopril until further notice and not restart his anticoagulation for about 3 more days. He will receive a prescription for tramadol and discharge and followup instructions were given. Job ID: [id number]
== END 2019-05-05 12:50 | disposition home or self-care (01) | DRG 164 ==
LOC: SURG A 07:54 → CCU 17:27 → 2NO 05-02 07:55
PROVIDERS: ADMIT Thoracic Surgery (Cardiothoracic Vascular Surgery); ATTEND Thoracic Surgery (Cardiothoracic Vascular Surgery)
PROC: 0BNJ0ZZ Release Left Lower Lung Lobe, Open Approach (ICD-10-PCS; principal; 2019-05-01)
PROC: 0B9P4ZZ Drainage of Left Pleura, Percutaneous Endoscopic Approach (ICD-10-PCS; 2019-05-01)
DX: J86.9 Pyothorax without fistula (principal); J93.9 Pneumothorax, unspecified; J93.82 Other air leak; I10 Essential (primary) hypertension; E78.5 Hyperlipidemia, unspecified; J45.909 Unspecified asthma, uncomplicated; I48.91 Unspecified atrial fibrillation; Z79.01 Long term (current) use of anticoagulants; Z79.51 Long term (current) use of inhaled steroids; Z79.899 Other long term (current) drug therapy; Z85.038 Personal history of other malignant neoplasm of large intestine; Z87.891 Personal history of nicotine dependence; Z88.0 Allergy status to penicillin
CPT/HCPCS: 36415; 71045; 71046; 80048; 85025; 86850; 86900; 86901; 87070; 87205; 88305; 93005; 93010; J1642; J1956; J2001; J2370; J2405; J2704; J2795; J3010; J3490; Q0163

== ENCOUNTER 2019-06-04 08:51 | Outpatient (CLI) | payer MEDICARE, OTHER ==
--- NOTE | 2019-06-04 09:06 | RAD ---
EXAM: Chest 2 views: HISTORY: Chest pain COMPARISON: 05/05/2019 FINDINGS: There is a normal-sized cardiomediastinal silhouette. There is a small left pleural effusion with adj acent atelectasis versus scarring. The bones are unremarkable. IMPRESSION: Small left pleural effusion
== END 2019-06-04 08:52 | disposition home or self-care (01) ==
LOC: RAD 08:51
PROVIDERS: ATTEND Internal Medicine Critical Care Medicine
DX: R06.00 Dyspnea, unspecified (principal); J90 Pleural effusion, not elsewhere classified
CPT/HCPCS: 71046

== ENCOUNTER 2019-10-18 07:59 | Outpatient (CLI) | payer MEDICARE, OTHER ==
[2019-10-18 17:17] LABS: #Basophils 0.1 thou/uL (0.0-0.2); #Eosinphils 0.2 thou/uL (0.0-0.7); #Lymphocytes 1.2 thou/uL (1.20-3.40); #Monocytes 0.6 thou/uL (0.11-0.59); #Neutrophils 7.3 thou/uL (1.40-6.50); %Basophils 0.6 % (0.0-1.0); %Eosinophils 2.7 % (0.0-10.0); %Lymphocytes 12.4 % (21.0-51.0); %Monocytes 6.8 % (0.0-10.0); %Neutrophils 77.5 % (42.0-75.0); Hemoglobin 15.6 g/dL (14.0-18.0); Mean Corpuscular HGB CONC 33.3 g/dL (32.0-36.0); Mean Corpuscular Hemoglobin 30.4 pg (27.0-31.0); Mean Corpuscular Volume 91.4 fL (78.0-98.0); Mean Platelet Volume 7.8 fL (7.4-10.4); Platelet Count 245 thou/uL (130-400); RBC Distribution Width 14.8 % (11.5-14.5); Red Blood Cell (RBC) Count 5.11 mill/uL (4.70-6.10); White Blood Cell (WBC) Count 9.4 thou/uL (4.8-10.8)
[2019-10-18 17:54] LABS: Anion Gap 17 mmol/L (10-20); BUN (Urea Nitrogen) 12 mg/dL (8.4-25.7); Calc. Creatinine Clearance 0 mL/min (70-130); Calcium 9.1 mg/dL (7.8-10.44); Carbon Dioxide 23 mmol/L (23-31); Chloride 107 mmol/L (98-107); Estimated GFR-MDRD 57; Glucose 95 mg/dL (80-115); Potassium 4.9 mmol/L (3.5-5.1); Sodium 142 mmol/L (136-145)
[2019-10-19 13:13] LABS: SARS-CoV-2 MS2 Positive; SARS-CoV-2 N Gene Negative; SARS-CoV-2 S Gene Negative; SARS-CoV-2 orf1ab Negative
== END 2019-10-18 08:00 | disposition home or self-care (01) ==
LOC: LABBT 07:59
PROVIDERS: ATTEND Specialist
DX: Z01.812 Encounter for preprocedural laboratory examination (principal); Z11.59 Encounter for screening for other viral diseases; K43.2 Incisional hernia without obstruction or gangrene
CPT/HCPCS: 80048; 85025; U0003; 87635

== ENCOUNTER 2019-10-23 07:52 | Inpatient (IN) | payer MEDICARE, OTHER ==
[2019-10-17 12:01] VITALS: BMI 28.3
--- NOTE | 2019-10-23 08:08 | HP ---
HISTORY OF PRESENT ILLNESS: Levy Mcginnis is a 69-year-old male patient, reports to my office regarding his incisional hernia. I had seen him in February 2019 regarding that. I had recommended robot mesh, possible open repair. He, in March, however, spent six days in the hospital due to a pneumonia, and he was coughing. His incisional hernia seemed to get worse. He subsequently was hospitalized the second week in April, and Dr. Pham performed a left decortication, thoracoscopy converted to a thoracotomy for left lower lobe decortication. The patient during his hospitalization in March for pneumonia was placed on Eliquis because of atrial fibrillation. This was discontinued prior to his decortication in April. He did not experience atrial fibrillation again. He was taken off Eliquis. He, however, remains on amiodarone. He has an appointment to see Dr. Rupesh Muñiz on October 08. 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 He instead transferred to [facility], and on-call I accepted him and he was taken to the operating room initially to drain an abscess in his left groin/left lower quadrant on February 05, 2018. He over the next day or two developed feculent drainage from his fistula. Dr. Reginald Mesa performed a colonoscopy revealing a near obstructing sigmoid colon mass. Dr. Watts, urologist, saw him and placed stents. On February 09, 2018, the patient underwent laparotomy, mobilization of splenic flexure, right colon, ileum, sigmoid colon taken down, sigmoid colon resection with en bloc resection of the abdominal wall with a fistula with clips placed. He underwent a segmental resection along with a segment of the transverse colon of tattooed area from a polyp with some question of vascular viability to the right colon, undergoing right colectomy with ileocolonic anastomosis and then colorectal anastomosis with a 33 mm EEA stapler. On February 21, 2018, he suffered a wound dehiscence requiring return to the operating room for closure of the upper 3rd abdominal wall with abdominal washout, wound VAC application. 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 He saw Dr. Pike and completed chemotherapy, and subsequent PET scan was negative for disease in February 2018. He presented in June 2018 with incisional hernia, upper abdominal incision, estimated 4 to 5 cm. On that day, 09/12/2018, he underwent robotic adhesiolysis, robotic incisional hernia repair with primary closure of the fascia and reinforcement with Ventralight mesh, 8 x 11 cm oval. Ross placed at the beginning of the procedure removed at the end. He recalls that he was sent home with a Ross catheter for urinary retention. Concerning his recurrent hernia, plan is to perform this as an open procedure using a TAR technique. Risks and benefits discussed, and he consents. MEDICATIONS: 1. Amiodarone 200 mg a day. 2. Advair. 3. ProAir. 4. Singulair for asthma. 5. Flomax 0.4 mg a day. 6. Aspirin daily. 7. Fiorinal. 8. Vitamin C. TOBACCO: None. ALCOHOL: None. PAST SURGICAL HISTORY: In addition to that noted above, shoulder surgery in 2005, decortication as noted above, multiple surgeries related to colon cancer as noted above. SOCIAL HISTORY: Former smoker, cessation in 1990. Drug use, none. 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 He is . His has been in very good health. She had been a surgical nurse in the past. She has a stroke with left hemiparesis, but is ambulating independently. REVIEW OF SYSTEMS: 10-system review of systems unremarkable. FAMILY HISTORY: Father, heart disease. Mother, . Paternal grandmother, colon cancer. Paternal grandmother, stroke, otherwise noncontributory. PHYSICAL EXAMINATION: VITAL SIGNS: Weight 203 pounds, height 5 feet 11 inches, blood pressure 143/77, heart rate 70, temperature 99.7 degrees. NEUROLOGIC: Intact. HEAD, EARS, EYES, NOSE, AND THROAT: Unremarkable. NECK: Carotids palpable without bruits. No lymphadenopathy in neck, groins, or axilla. LUNGS: Clear to auscultation. No wheezing. CARDIAC: Regular rate and rhythm without murmur or gallop. ABDOMEN: Soft and nontender. Incisional hernia, 4 cm defect above the umbilicus, 4 cm in length and width. EXTREMITIES: No edema. RECTAL: Deferred. ASSESSMENT AND PLAN: 1. Recurrent incisional hernia. He had a wound dehiscence postoperatively and this area had to be closed. We then attempted robot mesh repair and that has failed. This hernia has worsened since his coughing episode related to his pneumonia in March. Would like to proceed with open repair using a TAR technique. He understands risks and benefits of the procedure and consents. He does not have any cardiac symptoms. He will be seeing Dr. Muñiz on October 08. He will continue his aspirin perioperatively. He will have a DuoNeb preoperatively. We will give him Toradol, Tylenol, and gabapentin preoperatively. We will ask for general anesthesia as well as a TAP block preoperatively. Expect him to be hospitalized postoperatively for 1 or 2 days. 2. Asthma. 3. History of atrial fibrillation, during pneumonia episode. Discontinued Eliquis. No evidence of atrial fibrillation subsequently and currently on amiodarone. 4. History of colon cancer, status post radiation and chemotherapy. No evidence of disease. Colonoscopy last year, Dr. Regianld Mesa, unremarkable, told to return in 3 years. Job ID: [id number]
[2019-10-23] MEDS ORDERED: Acetaminophen 500 MG TAB ONE (08:24)
[2019-10-23] MEDS ORDERED: Gabapentin 300 MG CAP ONE (08:24)
[2019-10-23] MEDS ORDERED: Ketorolac Tromethamine 30 MG/ML VIAL ONE (08:24)
[2019-10-23] MEDS ORDERED: Bupivacaine PF 0.5% 30 ML VIAL ONE (08:50)
[2019-10-23] MEDS ORDERED: Lidocaine 1% w/Epinephrine 1:100K 20 ML VIAL ONE (08:50)
[2019-10-23] MEDS ORDERED: Fentanyl 100 MCG/2 ML VIAL ONE (08:56)
[2019-10-23] MEDS ORDERED: Midazolam HCl 2 mg/2 ml Vial ONE (08:56)
[2019-10-23] MEDS ORDERED: Ketamine 50 MG/ML (10ML VIAL) ONE (09:08)
[2019-10-23] MEDS ORDERED: PHENYLEPHRINE-NS 100 MCG/ML 10 ML SYRINGE ONE (09:47)
[2019-10-23] MEDS ORDERED: Ondansetron PF 4 MG/2 ML Vial ONE (09:47)
[2019-10-23] MEDS ORDERED: Lidocaine 1% PF 5 ML VIAL ONE (09:47)
[2019-10-23] MEDS ORDERED: Esmolol 100 MG/10 ML VIAL ONE (09:47)
[2019-10-23] MEDS ORDERED: Rocuronium Bromide 10 MG/ML (10ML VIAL) ONE (09:47)
[2019-10-23] MEDS ORDERED: PROPOFOL 200 MG/20 ML VIAL ONE (09:47)
[2019-10-23] MEDS ORDERED: Dexamethasone 20 MG/5 ML VIAL ONE (09:47)
[2019-10-23] MEDS ORDERED: EPHEDRINE 25 MG/5 ML SYRINGE ONE (09:47)
[2019-10-23] MEDS ORDERED: Meperidine HCl/PF 25 MG/ML VIAL SLOW IVP PRN (12:19)
[2019-10-23] MEDS ORDERED: Promethazine HCl 25 MG/ML VIAL IM PRN (12:19)
[2019-10-23] MEDS ORDERED: Ondansetron HCl/PF 4 MG/2 ML Vial IVP PRN (12:19)
[2019-10-23] MEDS ORDERED: Promethazine HCl 25 MG/ML VIAL SLOW IVP PRN (12:19)
[2019-10-23] MEDS ORDERED: HYDROmorphone 2 MG/ML VIAL SLOW IVP PRN (12:19)
[2019-10-23] MEDS ORDERED: Morphine 2 MG/ML SYRINGE SLOW IVP PRN (12:40)
[2019-10-23] MEDS ORDERED: Morphine 4 MG/ML VIAL SLOW IVP PRN (12:40)
[2019-10-23] MEDS ORDERED: Ondansetron ODT 8 MG TAB SL PRN (12:40)
[2019-10-23] MEDS ORDERED: hydrALAZINE 20 MG/ML VIAL SLOW IVP PRN (12:40)
[2019-10-23] MEDS ORDERED: Ondansetron ODT 4 MG TAB PO PRN ×2 (12:40)
[2019-10-23] MEDS ORDERED: Ondansetron PF 4 MG/2 ML Vial IVP PRN ×2 (12:40)
[2019-10-23] MEDS ORDERED: HYDROcodone/Acetaminophen 5/325 mg Tablet PO PRN ×2 (12:46)
[2019-10-23] MEDS ORDERED: traMADol HCl 50 MG TAB PO PRN ×2 (12:46)
[2019-10-23] MEDS: Gabapentin 300 MG CAP PO SCH ×2 (15:05→19:39)
[2019-10-23] MEDS: Lactated Ringer's 1,000 ML IV SCH ×2 (15:05→23:32)
[2019-10-23] MEDS ORDERED: Albuterol Sulfate 1.25 MG/3 ML NEB NEB PRN (16:15)
[2019-10-23] MEDS: Ketorolac Tromethamine 30 MG/ML VIAL IVP SCH ×2 (17:20→23:28)
--- NOTE | 2019-10-23 18:02 | OP ---
DATE OF PROCEDURE: 10/23/2019 PREOPERATIVE DIAGNOSES: 1. Recurrent incisional hernia (past robot mesh repair). 2. 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 3. Tobacco cessation a year ago. POSTOPERATIVE DIAGNOSES: 1. Recurrent incisional hernia (past robot mesh repair). 2. 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 3. Tobacco cessation a year ago. PROCEDURES PERFORMED: 1. Transversus abdominis release. 2. Hernia repair with Bard polypropylene mesh, extending from retroxiphoid area to below the umbilicus from anterior axial line to axillary line. 3. #10 round ROSIE drains. ANESTHESIA: General, TAP block placed postoperatively in the recovery room, PACU. DESCRIPTION OF PROCEDURE: The patient was taken to the operating room where under general anesthesia, a Ross catheter was placed. Abdomen clipped of hair, prepared with ChloraPrep, and draped in routine fashion. The patient has a large hernia in his upper midline incision umbilicus and xiphoid. Incision was carried down to skin and subcutaneous tissue and a large hernia sac excised. Adhesiolysis was undertaken, freeing small bowel adhesions from the abdominal wall without injury. The colon was resected from the abdominal wall. Adhesions taken down. The old mesh removed. Mesh was not infected. Fascial edges identified. Anterior rectus sheath opened on both sides from the subxiphoid to the below the umbilicus and the rectus muscle on both sides elevated anteriorly, exposing the posterior rectus sheath area between the rectus and the posterior rectus sheath and dissected out laterally bilaterally, incising the posterior rectus sheath just medial to the confluence and then releasing the transversus abdominis from the subcostal area to above the umbilicus area on both sides. On the right side, there were 2 areas where 3-0 Vicryl was used to close peritoneal defect. Once this was released, good hemostasis noted. Midline fascia was approximated with continuous suture of #2-0 PDS. This was closed without tension. The mesh described was then obtained and coroners rounded, cut to size, and placed in the retrorectus area for repair. The mesh extended from the anterior axial line to the right and left and from below the umbilicus to the subxiphoid area. Once this was in place and properly trimmed for size to prevent buckling, two #19 round drains placed, both exiting bilateral subcostal laterally and secured with 3-0 nylon suture and Opsite and Mastisol applied. As all counts were correct, midline fascia approximated with continuous suture of #1 PDS, incorporating bites of the mesh into the fascial approximation at different levels. Once this was completed, excess skin and subcutaneous tissues excised to allow appropriate closure. Subcutaneous tissue was approximated with 3-0 Monocryl, skin with subdermal 4-0 Monocryl, and [place] glue applied. Incision extended from the xiphoid to below the umbilicus. Job ID: [id number]
[2019-10-23] MEDS: Mometasone 100 MCG/Formoterol 5 MCG 120 PUFF INHALER INH SCH (18:44)
[2019-10-23] MEDS ORDERED: Sodium Chloride 0.9% (PF) 10 ML VIAL FS PRN (19:09)
[2019-10-23] MEDS ORDERED: Pantoprazole 40 MG VIAL IVP PRN (19:09)
[2019-10-23] MEDS ORDERED: PROVENTIL INHALER 6.7 G (200 INHALATIONS) INH PRN (19:09)
[2019-10-23] MEDS: Fish Oil 1,000 MG CAP PO SCH (19:38)
[2019-10-23] MEDS ORDERED: Montelukast Sodium 10 mg Tablet PO SCH (21:00)
[2019-10-23] MEDS ORDERED: Enoxaparin Sodium 40 MG/0.4 ML SYRINGE SC SCH (21:00)
[2019-10-23] MEDS ORDERED: Atorvastatin Calcium 20 MG TAB PO SCH (21:00)
[2019-10-24] MEDS: Acetaminophen 500 MG TAB PO PRN ×2 (02:09→09:29)
[2019-10-24] MEDS: Ketorolac Tromethamine 30 MG/ML VIAL IVP SCH ×2 (05:38→12:22)
[2019-10-24 06:11] LABS: #Eosinphils 0.1 thou/uL (0.0-0.7); #Lymphocytes 0.9 thou/uL (1.20-3.40); #Monocytes 0.8 thou/uL (0.11-0.59); #Neutrophils 7.3 thou/uL (1.40-6.50); %Basophils 0.2 % (0.0-1.0); %Eosinophils 1.5 % (0.0-10.0); %Lymphocytes 9.3 % (21.0-51.0); %Monocytes 9.1 % (0.0-10.0); Hemoglobin 13.5 g/dL (14.0-18.0); Mean Corpuscular HGB CONC 32.6 g/dL (32.0-36.0); Mean Corpuscular Hemoglobin 30.4 pg (27.0-31.0); Mean Corpuscular Volume 93.2 fL (78.0-98.0); Mean Platelet Volume 7.4 fL (7.4-10.4); Platelet Count 201 thou/uL (130-400); RBC Distribution Width 14.3 % (11.5-14.5); Red Blood Cell (RBC) Count 4.45 mill/uL (4.70-6.10); White Blood Cell (WBC) Count 9.1 thou/uL (4.8-10.8)
[2019-10-24] MEDS: Mometasone 100 MCG/Formoterol 5 MCG 120 PUFF INHALER INH SCH (06:44)
[2019-10-24] MEDS: Lactated Ringer's 1,000 ML IV SCH ×2 (06:49→09:19)
[2019-10-24] MEDS ORDERED: Polyethylene Glycol 3350 17 GM Packet PO SCH (09:00)
[2019-10-24] MEDS ORDERED: Tamsulosin HCl 0.4 MG CAP PO SCH (09:00)
[2019-10-24] MEDS ORDERED: Aspirin 81 mg Enteric Coated Tablet PO SCH (09:00)
[2019-10-24] MEDS ORDERED: Amiodarone 200 MG TAB PO SCH (09:00)
[2019-10-24] MEDS: Fish Oil 1,000 MG CAP PO SCH (09:15)
[2019-10-24] MEDS: Gabapentin 300 MG CAP PO SCH ×2 (09:15→14:42)
[2019-10-24 11:02] VITALS: BP 102/62; TEMP 98.8
[2019-10-24] MEDS ORDERED: Ibuprofen 600 MG TAB PO PRN (13:30)
--- NOTE | 2019-10-24 19:28 | DIS ---
DATE OF ADMISSION: 10/24/2019 DATE OF DISCHARGE: 10/24/2019 DISCHARGE DIAGNOSES: 1. Recurrent incisional hernia located between the umbilicus and xiphoid. 2. 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 3. History of robot/laparoscopic incisional hernia with recurrence. 4. History of decortication of empyema. HISTORY: A 69-year-old male with above history, brought in with a recurrent hernia. He underwent TAR repair with mesh. Postoperatively, he did well. He was instructed on drain care. He was discharged home with suture removal set to remove drains when each drain is less than 20 mL per day. Follow up in my office in the next week. His will remove the drain if criteria met for removal. The patient has done well and tolerated his diet. He will advance it to a regular diet as tolerated. Job ID: [id number]
== END 2019-10-24 15:44 | disposition home or self-care (01) | DRG 355 ==
LOC: SDC 07:52 → SURG A 13:27 → SDC 10-24 12:28 → SURG A 10-24 12:29
PROVIDERS: ADMIT Specialist; ATTEND Specialist
PROC: 0WUF0JZ Supplement Abdominal Wall with Synthetic Substitute, Open Approach (ICD-10-PCS; principal; 2019-10-23)
PROC: 0WPF0JZ Removal of Synthetic Substitute from Abdominal Wall, Open Approach (ICD-10-PCS; 2019-10-23)
PROC: 0KNL0ZZ Release Left Abdomen Muscle, Open Approach (ICD-10-PCS; 2019-10-23)
PROC: 0KNK0ZZ Release Right Abdomen Muscle, Open Approach (ICD-10-PCS; 2019-10-23)
DX: K43.2 Incisional hernia without obstruction or gangrene (principal); J45.909 Unspecified asthma, uncomplicated; I48.91 Unspecified atrial fibrillation; Z87.891 Personal history of nicotine dependence; Z85.038 Personal history of other malignant neoplasm of large intestine; Z92.3 Personal history of irradiation; Z92.21 Personal history of antineoplastic chemotherapy; Z79.899 Other long term (current) drug therapy; Z90.49 Acquired absence of other specified parts of digestive tract
CPT/HCPCS: 36415; 85025; C9113; J1100; J1650; J1885; J1956; J2001; J2250; J2270; J2405; J2704; J3010; J7620; S0020

== ENCOUNTER 2019-11-01 13:02 | Inpatient (IN) | payer MEDICARE, OTHER ==
[~2019-11-01 13:02] MED LIST: Dexamethasone 20 MG/5 ML VIAL ONE; Glycopyrrolate 0.2 MG/ML 5 ML SYRINGE ONE; Lidocaine 1% PF 5 ML VIAL ONE; Metoclopramide HCl 10 MG/2 ML VIAL ONE; Ondansetron PF 4 MG/2 ML Vial ONE; PHENYLEPHRINE-NS 100 MCG/ML 10 ML SYRINGE ONE; PROPOFOL 200 MG/20 ML VIAL ONE; Rocuronium Bromide 10 MG/ML (10ML VIAL) ONE; Succinylcholine Chloride 20 MG/ML 10 ml SYRINGE FS ONE
[2019-11-01] MEDS ORDERED: Bupivacaine 0.5% 10 ML VIAL ONE (13:18)
[2019-11-01] MEDS ORDERED: Lidocaine 1% w/Epinephrine 1:100K 20 ML VIAL ONE (13:18)
[2019-11-01] MEDS ORDERED: Cefepime 2 GM VIAL ONE (14:41)
--- NOTE | 2019-11-01 14:46 | HP ---
HISTORY OF PRESENT ILLNESS: Levy Mcginnis is a 69-year-old male patient who has had a protracted course, undergoing past drainage of an abscess, left groin, flank, suffered a colocutaneous fistula, undergoing colonoscopy, revealing the sigmoid colon cancer adherent to the abdominal wall abutting the dome of the bladder, undergoing resection and anastomosis. He subsequently developed incisional hernia, undergoing robot repair with mesh, suffered a recurrence. On 10/23/2019, the patient underwent TAR repair of incisional hernia with mesh. The patient was sent home with drains. His removed the drains. He was seen in the office yesterday and doing well. He called me today, reporting drainage from his wound. He was seen in the emergency room, noted that he had a wound dehiscence. He had breakfast prior to this ER visit. As an emergency, we will plan to go to the operating room to wash his wound and do what is indicated based on intraoperative findings. Hopefully, the wound, he may have a wound VAC. He probably will be admitted to the hospital postoperatively. He understands risks and benefits, consents. OBJECTIVE: LUNGS: Clear to auscultation. CARDIAC: Regular rate and rhythm without murmur or gallop. ABDOMEN: Soft, nontender. Wound per above description. EXTREMITIES: Unremarkable. LABORATORIES: Pending. recent history and physical. Job ID: [id number]
[2019-11-01 15:06] LABS: #Eosinphils 0.2 thou/uL (0.0-0.7); #Lymphocytes 0.7 thou/uL (1.20-3.40); #Monocytes 0.6 thou/uL (0.11-0.59); #Neutrophils 5.7 thou/uL (1.40-6.50); %Basophils 0.3 % (0.0-1.0); %Eosinophils 3.1 % (0.0-10.0); %Lymphocytes 9.5 % (21.0-51.0); %Monocytes 8.2 % (0.0-10.0); %Neutrophils 78.9 % (42.0-75.0); Hemoglobin 13.2 g/dL (14.0-18.0); Mean Corpuscular HGB CONC 33.4 g/dL (32.0-36.0); Mean Corpuscular Hemoglobin 30.9 pg (27.0-31.0); Mean Corpuscular Volume 92.5 fL (78.0-98.0); Mean Platelet Volume 7.1 fL (7.4-10.4); Platelet Count 289 thou/uL (130-400); RBC Distribution Width 13.1 % (11.5-14.5); Red Blood Cell (RBC) Count 4.28 mill/uL (4.70-6.10); White Blood Cell (WBC) Count 7.2 thou/uL (4.8-10.8)
[2019-11-01 15:26] LABS: Anion Gap 12 mmol/L (10-20); BUN (Urea Nitrogen) 14 mg/dL (8.4-25.7); Calc. Creatinine Clearance 0 mL/min (70-130); Calcium 8.7 mg/dL (7.8-10.44); Carbon Dioxide 28 mmol/L (23-31); Chloride 104 mmol/L (98-107); Estimated GFR-MDRD 69; Glucose 105 mg/dL (80-115); Potassium 4.1 mmol/L (3.5-5.1); Sodium 140 mmol/L (136-145)
[2019-11-01] MEDS ORDERED: Fentanyl 100 MCG/2 ML VIAL ONE ×2 (16:32→18:43)
[2019-11-01] MEDS ORDERED: Vancomycin 1 GM/200 ML BAG ONE (17:26)
[2019-11-01] MEDS ORDERED: Ondansetron HCl/PF 4 MG/2 ML Vial IVP PRN (18:21)
[2019-11-01] MEDS ORDERED: Promethazine HCl 25 MG/ML VIAL SLOW IVP PRN (18:21)
[2019-11-01] MEDS ORDERED: Promethazine HCl 25 MG/ML VIAL IM PRN (18:21)
[2019-11-01] MEDS ORDERED: HYDROmorphone 2 MG/ML VIAL SLOW IVP PRN (18:21)
[2019-11-01] MEDS ORDERED: Morphine 2 MG/ML VIAL SLOW IVP PRN (18:29)
[2019-11-01] MEDS ORDERED: Lorazepam 2 MG/ML VIAL SLOW IVP PRN (18:29)
[2019-11-01] MEDS ORDERED: Ondansetron PF 4 MG/2 ML Vial IVP PRN (18:29)
[2019-11-01] MEDS ORDERED: Ondansetron ODT 4 MG TAB PO PRN (18:29)
[2019-11-01] MEDS ORDERED: Morphine 4 MG/ML VIAL SLOW IVP PRN (18:29)
[2019-11-01] MEDS ORDERED: hydrALAZINE 20 MG/ML VIAL SLOW IVP PRN (18:29)
[2019-11-01] MEDS ORDERED: Ondansetron ODT 8 MG TAB SL PRN (18:36)
[2019-11-01] MEDS ORDERED: traMADol HCl 50 MG TAB PO PRN ×2 (18:36)
[2019-11-01] MEDS ORDERED: Ondansetron ORAL SOLN. 4 MG/5 ML UDCUP PO PRN (18:36)
[2019-11-01] MEDS ORDERED: Acetaminophen 500 MG TAB PO PRN (18:36)
[2019-11-01] MEDS ORDERED: Ketorolac Tromethamine 30 MG/ML VIAL IVP PRN (18:36)
[2019-11-01] MEDS ORDERED: Albuterol 200 PUFF (6.7GM INHALER) INH PRN (18:40)
[2019-11-01] MEDS ORDERED: Ibuprofen 600 MG TAB PO PRN (18:40)
--- NOTE | 2019-11-01 19:31 | OP ---
DATE OF PROCEDURE: 11/01/2019 PREOPERATIVE DIAGNOSES: Transversus abdominis retrorectus repair using mesh, Prolene large, placed anterior axillary line to anterior axillary line, xiphoid to below umbilicus; repair of recurrent incisional hernia 10 days ago, now with wound dehiscence (posterior fascia intact, mesh present). POSTOPERATIVE DIAGNOSES: Transversus abdominis retrorectus repair using mesh, Prolene large placed anterior axillary line to anterior axillary line, xiphoid to below umbilicus; repair of recurrent incisional hernia 10 days ago, now with wound dehiscence (posterior fascia intact, mesh present). PROCEDURES PERFORMED: Closure of wound dehiscence, complex, #19 Gold ROSIE drain located between the mesh and the rectus muscle. Wound closed, skin closed loosely with brandon and incisional wound VAC ([place]) dressing applied for 7 days. Note, the patient called today, stating he had drainage from his midline wound. In the emergency room, he had several millimeter opening in his subcuticular closure wound with serosanguineous drainage. There was no evidence of infection. No cellulitis. No purulence. The wound was prepared with Betadine, slightly opened and mesh exposed, noting fascial dehiscence. The patient received vancomycin and cefepime. Culture submitted from the wound and he was taken to the operating room. DESCRIPTION OF PROCEDURE: The patient was taken to the operating room, where dressings removed. Abdomen was prepared with Betadine and draped in routine fashion. Incision was opened from the subcuticular closure. As noted previously, there was no purulence. There was old hematoma and serosanguineous fluid. This was evacuated with a pulse evacuator. Once this was thoroughly irrigated, the old sutures subcuticular and PDS were removed. Internal retention sutures of #1 PDS placed initially and left loose at this point. Interrupted sutures [id number] of #1 PDS used to close the fascia. #19 Gold ROSIE drain brought through a separate right lower quadrant stab incision, secured with 3-0 nylon suture, and Mastisol and OpSite applied, and drain tailored to length and placed between the mesh and the rectus muscle. Once the fascial closure was complete, the internal retention sutures were closed and skin and subcutaneous tissues irrigated with pulse instrument inspector remaining. Good hemostasis noted. Skin approximated loosely with brandon, and [place] incisional suction device applied to close the wound. The patient tolerated the procedure well. Dr. Cifuentes was consulted for antibiotic selection to help salvage this situation. The patient received vancomycin and cefepime preoperatively. The drainage from the wound was nonpurulent. There was no active infection. Cultures were obtained from the small opening in the fascia for completeness, but although no evidence clinically of infection noted. Job ID: [id number]
[2019-11-01 20:13] VITALS: BMI 27.5
[2019-11-01] MEDS: Famotidine 20 MG TAB PO SCH (21:06)
[2019-11-01] MEDS: Montelukast Sodium 10 mg Tablet PO SCH (21:06)
[2019-11-01] MEDS: Enoxaparin Sodium 40 MG/0.4 ML SYRINGE SC SCH (21:06)
[2019-11-01] MEDS: D5 1/2 NS w/20 mEq KCL 1,000 ML IV SCH (21:06)
[2019-11-02] MEDS: Cefepime 2 GM in Sodium Chloride 0.9% 100 ML IVPB SCH ×2 (01:22→14:20)
[2019-11-02] MEDS: D5 1/2 NS w/20 mEq KCL 1,000 ML IV SCH ×3 (01:23→20:52)
[2019-11-02] MEDS: Vancomycin HCl 1.25 GM in Sodium Chloride 0.9% 250 ML 250 ML IVPB SCH ×2 (02:12→15:10)
[2019-11-02] MEDS: Mometasone 100 MCG/Formoterol 5 MCG 120 PUFF INHALER INH SCH ×2 (08:02→19:46)
[2019-11-02] MEDS: Amiodarone 200 MG TAB PO SCH (08:34)
[2019-11-02] MEDS: Polyethylene Glycol 3350 17 GM Packet PO SCH (08:36)
[2019-11-02] MEDS: Multivitamin W/ Minerals 1 TAB PO SCH (08:36)
[2019-11-02] MEDS: Tamsulosin HCl 0.4 MG CAP PO SCH (08:36)
[2019-11-02] MEDS: Famotidine 20 MG TAB PO SCH ×2 (08:36→21:51)
[2019-11-02] MEDS: Aspirin 81 mg Enteric Coated Tablet PO SCH (08:36)
[2019-11-02] MEDS: Acetaminophen 500 MG TAB PO PRN ×2 (11:40→21:52)
--- NOTE | 2019-11-02 12:49 | PDOC.GSPN ---
Surgery Progress Note: Subj - Subjective Narrative: Patient is 10 days out from complex hernia repair. He had a partial dehiscence yesterday and was taken to the operating room by Dr. Berumen for washout and repair. He has a ROSIE drain in place. His abdominal pain is under control. ROSIE drain output is serosanguineous. No fevers. Abdominal exam is appropriate for postoperative status. The posterior portion of the repair was intact. Assessment/plan: Status post partial fascial dehiscence washout and repair. On IV antibiotics with ID consult pending due to risk for mesh infection. Continue current management. Surgery Progress Note: Obj - Vital signs Vital signs: Vital Signs - Most Recent Temp Pulse Resp BP Pulse Ox 98.2 F 82 16 124/76 94 L 11/02/19 10:59 11/02/19 10:59 11/02/19 10:59 11/02/19 10:59 11/02/19 10:59 Surgery Progress Note: Results - Labs Result Diagrams: 11/01/19 14:30 11/01/19 14:30
--- NOTE | 2019-11-02 19:52 | CON ---
DATE OF CONSULTATION: 11/02/2019 REASON FOR CONSULTATION: Evaluate possible infection of the mesh site. HISTORY OF PRESENT ILLNESS: A 69-year-old with history of colon cancer with resection of both right and left colon. The initial presentation was a sigmoid mass and the final staging was T3 N0 M0. He has been received adjuvant radiation chemotherapy in March 2019. He presented with worsening asthma and pneumonia with no specific organism identified. In April 2019, he developed a trapped left lower lung and had thoracoscopic decortication of left lower lobe. The cultures were negative. In October 22, Dr. Ellison operated on a recurrent incisional hernia basically had a transversus abdominis muscle release and hernia repair with polypropylene mesh from [employer] and now he comes back with drainage from midline wound. In the ER, he had opening of a subcuticular closure wound with serosanguineous drainage. There is no evidence of infection. The wound has been repaired. The patient is feeling well right now. He has still a drain in place and denies any headaches. Mild wheezing. Mild cough. No respiratory symptoms. His COVID was nondetected on October 16. There is mild abdominal pain. No genitourinary symptoms and no other joint symptoms. PAST MEDICAL HISTORY: Includes colon cancer resection, both right and left colon, chemoradiation therapy, staging was T3 N0 M0. Postop hernia with repair x2, I believe. The mesh was Bard polypropylene mesh and now he returns with this complication noted above. Also, pneumonia left lung with entrapped lung, which required decortication. He has had chemoradiation therapy, is one adjuvant treatment for the cancer. He has had shoulder ORIF. SOCIAL HISTORY: Former smoker. Does not drink regularly. . Lives in the area. 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 FAMILY HISTORY: Cancer and coronary artery disease. ALLERGIES: PENICILLIN. MEDICATIONS: 1. Atorvastatin. 2. Tamsulosin. 3. Lisinopril. 4. Albuterol. 5. Advair. 6. Ranitidine. 7. Montelukast. 8. Vitamin C. 9. Aspirin. PHYSICAL EXAMINATION: VITAL SIGNS: Temperature normal. Other vital signs are normal. O2 saturations 92 to 94. SKIN: Shows the midline area with the surgical procedure. There is a drain in place. The dressing was not removed. Peripheral IV access. No lymphadenopathy. HEENT: Noncontributory. No jugular vein distention. LUNGS: With faint wheezing right and left lungs. HEART: S1 and S2. Regular rate. No S3 or S4. ABDOMEN: Soft with no distention and mild tenderness. No bladder distention. : No genital abnormalities. EXTREMITIES: No joint inflammatory activity. No edema. Pulses 1+ in dorsalis pedis. Moves extremities equally. NEUROLOGIC: His cognitive function appears to be intact. LABORATORY DATA: White cell count 7.2, hemoglobin 13, platelets 289, and 78% neutrophils. Chemistry normal. We do not have any microbiology. ASSESSMENT: 1. Colon cancer in remission after resection, chemoradiation therapy. 2. Postop hernia with two interventions and now with what appears to be a wound dehiscence, which was closed. The ROSIE drain placed between the mesh and the rectus muscle. This mesh is located preperitoneally. It is a mesh of polypropylene monofilament from [employer]. DISCUSSION: The monofilament polypropylene mesh repair usually has a lower rate of infection than the other types of material used for hernia repair because they have large pores, which allow penetration of granulation tissue and incorporation into the body tissues and penetration by neutrophils. Although sometimes, the biofilm can form and those areas can become colonized. The fact also that they have monofilament helps in decreasing the rates of infection. So, I would advise at this point to discontinue antimicrobial therapy for discharge planning. There is no evidence in this circumstance, the continuation of antimicrobials will decrease the risk of infection, which is probably less than 6%. Job ID: [id number]
[2019-11-02] MEDS: Montelukast Sodium 10 mg Tablet PO SCH (21:51)
[2019-11-02] MEDS: Enoxaparin Sodium 40 MG/0.4 ML SYRINGE SC SCH (21:51)
[2019-11-03] MEDS: Cefepime 2 GM in Sodium Chloride 0.9% 100 ML IVPB SCH (02:00)
[2019-11-03 02:25] LABS: Vancomycin, Trough 10.8 ug/mL
[2019-11-03] MEDS: Vancomycin HCl 1.25 GM in Sodium Chloride 0.9% 250 ML 250 ML IVPB SCH (02:59)
[2019-11-03] MEDS: D5 1/2 NS w/20 mEq KCL 1,000 ML IV SCH ×2 (03:14→11:10)
[2019-11-03] MEDS: Mometasone 100 MCG/Formoterol 5 MCG 120 PUFF INHALER INH SCH (07:11)
[2019-11-03] MEDS: Aspirin 81 mg Enteric Coated Tablet PO SCH (09:38)
[2019-11-03] MEDS: Multivitamin W/ Minerals 1 TAB PO SCH (09:38)
[2019-11-03] MEDS: Amiodarone 200 MG TAB PO SCH (09:38)
[2019-11-03] MEDS: Tamsulosin HCl 0.4 MG CAP PO SCH (09:38)
[2019-11-03] MEDS: Polyethylene Glycol 3350 17 GM Packet PO SCH (09:38)
[2019-11-03] MEDS: Famotidine 20 MG TAB PO SCH (09:41)
[2019-11-03 11:16] VITALS: BP 156/81; TEMP 98.1
--- NOTE | 2019-11-04 07:23 | DIS ---
DATE OF ADMISSION: 11/01/2019 DATE OF DISCHARGE: 11/03/2019 PROCEDURE: Washout and closure of fascia by Dr. Ellison on 11/01/2019 and Infectious Disease consultation by Dr. Cifuentes on 11/02/2019. HISTORY: Mr. Mcginnis is a 69-year-old man who presented to the hospital with bloody drainage from his recent hernia repair. He underwent a rectus sheath release by Dr. Ellison and was found to have disruption of the anterior sheath with the mesh and posterior sheath intact. He underwent washout in the operating room and closure over drain and was admitted for IV antibiotics and ID consultation. Dr. Cifuentes saw the patient and felt that his risk of mesh infection was quite low. He did receive 36 hours of IV antibiotics, but continuation of outpatient antibiotics was not recommended. He is being discharged home with a ROSIE in place. He also required placement of a Ross catheter for acute postoperative urinary retention. He is on Flomax and was instructed to continue that. He will be scheduled in the clinic for a trial of voiding next week. DISCHARGE MEDICATIONS: Include his home medications: 1. Atorvastatin. 2. Advair. 3. Singulair. 4. Multivitamin. 5. Flomax. 6. Ibuprofen. 7. He was also given a prescription for tramadol as needed. Job ID: [id number]
== END 2019-11-03 12:33 | disposition home or self-care (01) | DRG 908 ==
LOC: ER/OP 13:02 → SURG A 19:58
PROVIDERS: ADMIT Specialist; ATTEND Specialist
PROC: 0JQ80ZZ Repair Abdomen Subcutaneous Tissue and Fascia, Open Approach (ICD-10-PCS; principal; 2019-11-02)
DX: T81.32XA Disruption of internal operation (surgical) wound, not elsewhere classified, initial encounter (principal); C18.9 Malignant neoplasm of colon, unspecified; R33.9 Retention of urine, unspecified; Y83.2 Surgical operation with anastomosis, bypass or graft as the cause of abnormal reaction of the patient, or of later complication, without mention of misadventure at the time of the procedure; Z90.49 Acquired absence of other specified parts of digestive tract; Z88.0 Allergy status to penicillin; Z87.01 Personal history of pneumonia (recurrent); Z87.891 Personal history of nicotine dependence
CPT/HCPCS: 36415; 80048; 80202; 85025; J0692; J1100; J1650; J2405; J2704; J2765; J3010; J3370; J3480; J3490; J7050; J7620

== ENCOUNTER 2019-12-31 09:12 | Outpatient (CLI) | payer MEDICARE, OTHER ==
--- NOTE | 2019-12-31 09:47 | RAD ---
Chest 2 views HISTORY: Dyspnea. COMPARISON: 06/04/2019. FINDINGS: Cardiac silhouette and pulmonary vasculature are unremarkable. Mediastinum is slightly shif ytrell leftward with postoperative changes of the left hilum and atelectasis at the left lung base. Left pleural fluid is less pronounced than on the prior study. Right lung slightly hyperinflated. Patchy ill-defined peripheral areas of infiltrate are present with in the inferior lateral aspect of the right lung on the frontal view. No lobar consolidation or evidence of pneumothorax. Postoperative changes right shoulder. IMPRESSION : Subtle patchy peripheral right lung infiltrate. Clinical correlation regarding other signs and sympto ms of multifocal viral pneumonitis is required. Postoperative changes left chest, stable. Interval decrease in left pleural fluid. Findings were called to Dr. Ortiz at 0941 hours Code CR.
== END 2019-12-31 09:13 | disposition home or self-care (01) ==
LOC: BICRAD 09:12
PROVIDERS: ATTEND Internal Medicine Critical Care Medicine
DX: R06.00 Dyspnea, unspecified (principal); R91.8 Other nonspecific abnormal finding of lung field
CPT/HCPCS: 71046

== ENCOUNTER 2020-02-11 08:37 | Outpatient (CLI) | payer MEDICARE, OTHER ==
--- NOTE | 2020-02-11 08:55 | RAD ---
EXAM: Two views chest PROVIDED CLINICAL HISTORY: Dyspnea. Follow-up pneumonia. COMPARISON: None 2019 FINDINGS: Cardiac silhouette and pulmonary vasculature are within normal limits. There has been resolution of the patchy parenchymal opacities within the right midlung zone and right lung base. Minimal patchy opacity persists in the region of the lingula. Mild chronic lung changes are again seen with surgical clip again overlying left hilar region. No pleural effusion is identified. Hiatal hernia is again seen. Vascular calcifications are again seen in the thoracic aorta. No other interval change. IMPRESSION: Improvement in patchy parenchymal opacity in the right lung suggesting improvement in pneumonitis. Th ere is minimal residual patchy parenchymal density seen in the lingula.
== END 2020-02-11 08:38 | disposition home or self-care (01) ==
LOC: BICRAD 08:37
PROVIDERS: ATTEND Internal Medicine Critical Care Medicine
DX: R06.00 Dyspnea, unspecified (principal); R91.8 Other nonspecific abnormal finding of lung field; J98.4 Other disorders of lung
CPT/HCPCS: 71046

== ENCOUNTER 2020-04-03 15:12 | Inpatient (IN) | payer MEDICARE, OTHER ==
[~2020-04-03 15:12] MED LIST changes: -Dexamethasone 20 MG/5 ML VIAL ONE; -Glycopyrrolate 0.2 MG/ML 5 ML SYRINGE ONE; +Iopamidol-370 76% 500 ML 1 ML ONE; -Lidocaine 1% PF 5 ML VIAL ONE; -Metoclopramide HCl 10 MG/2 ML VIAL ONE; -Ondansetron PF 4 MG/2 ML Vial ONE; -PHENYLEPHRINE-NS 100 MCG/ML 10 ML SYRINGE ONE; -PROPOFOL 200 MG/20 ML VIAL ONE; -Rocuronium Bromide 10 MG/ML (10ML VIAL) ONE; -Succinylcholine Chloride 20 MG/ML 10 ml SYRINGE FS ONE
[2020-04-03] MEDS ORDERED: Dexamethasone 10 MG/ML VIAL ONE (15:35)
[2020-04-03] MEDS ORDERED: Albuterol 200 PUFF (6.7GM INHALER) ONE (15:35)
[2020-04-03 16:00] LABS: Hemoglobin 15.2 g/dL (14.0-18.0); Mean Corpuscular HGB CONC 32.4 g/dL (32.0-36.0); Mean Corpuscular Hemoglobin 29.5 pg (27.0-31.0); Mean Corpuscular Volume 91.1 fL (78.0-98.0); Mean Platelet Volume 7.4 fL (7.4-10.4); Platelet Count 201 thou/uL (130-400); RBC Distribution Width 15.6 % (11.5-14.5); Red Blood Cell (RBC) Count 5.14 mill/uL (4.70-6.10); White Blood Cell (WBC) Count 13.4 thou/uL (4.8-10.8)
[2020-04-03 16:18] LABS: ALT (SGPT) 38 U/L (8-55); AST (SGOT) 18 U/L (5-34); Alkaline Phosphatase 47 U/L (40-110); Anion Gap 17 mmol/L (10-20); BUN (Urea Nitrogen) 17 mg/dL (8.4-25.7); Bilirubin, Total 1.1 mg/dL (0.2-1.2); Calc. Creatinine Clearance 0 mL/min (70-130); Calcium 9.2 mg/dL (7.8-10.44); Carbon Dioxide 22 mmol/L (23-31); Chloride 104 mmol/L (98-107); Globulin 2.2 g/dL (2.4-3.5); Glucose 141 mg/dL (80-115); Potassium 4.9 mmol/L (3.5-5.1); Protein, Total 6.2 g/dL (5.8-8.1); Sodium 138 mmol/L (136-145)
[2020-04-03 16:23] LABS: Anisocytosis SLIGHT = 6-15 cells (100X) (0-5/hpf); Band 35 % (5-11); Lymphocytes 7 % (21-51); MDiff Complete? YES; Monocytes 10 % (0-10); Neutrophil 48 % (42-75); Platelet Morphology Comment Appears Adequate
--- NOTE | 2020-04-03 16:37 | CT ---
CT ANGIOGRAM THORAX WITH CONTRAST: (CTA pulmonary angiogram) DATE: 04/03/2020 HISTORY: 69-year-old male with cough, dyspnea, hypoxemia, tachycardia, and subjective fever and chills. COMPARISON: 04/10/2019 TECHNIQUE: IV injection of iodinated contrast. Scan acquisition timing attempted to coincide with iodinated contrast bolus reaching maximal density in pulmonary arteries. 3-D MIP reconstructions. FINDINGS: There is a new finding of interstitial-alveolar infiltrates involving a broad region involving all ba silar segments of left lower lobe. The previously demonstrated moderately large pulmonary mass at the anterior segment of the left upper lobe broadly abutting the anterolateral pleural surface, is no longer present. In the anterior segment of left upper lobe, there is a new finding of wide, broad region of reticulon odular infiltrate. Many of these new tiny irregularly-shaped, stellate nodules have tiny cavitations. These cavitated nodules involve apicoposterior segment as well as anterior segment, both peripherally and deeply, in left upper lobe. In addition, there are reticular nodular densities have the appearance of a very large number of tiny air cysts throughout the anterior segment and lingula. Moderate centrilobular emphysematous changes throughout bilateral upper lobes.. A 5 mm noncalcified right lower lobe pulmonary nodule close to the posterior pleural surface is uncha nged. A 6 x 4 mm noncalcified pulmonary nodule in apical segment of right upper lobe close to anteromedial pleural surface, is either minimally larger or unchanged. No acute infiltrate in right lung. The previously demonstrated small left pleural effusion is no longer present. Currently there is no pleural effusion or pneumothorax. Atherosclerosis without dissection or aneurysm of thoracic aorta. No cardiomegaly or pericardial effusion. Nonspecific mildly enlarged subcarinal lymph node. No other mediastinal or right hilar lymphadenopathy. Mild enlargement of left hilar lymph nodes, similar to or minimally greater than before. No pulmonary thromboembolism in pulmonary trunk, left and right main pulmonary arteries, or any of th e mid level branches on the right. Mid and distal level branches on the left are poorly visualized because of breathing motion artifact Small sliding hiatal hernia surrounded by herniation of intra-abdominal fat into the lower mediastinu m, unchanged No high-grade stenosis of trachea or right mainstem bronchus. Again noted is the elongated 2.5 x 0.6 cm soft tissue density mass, in the lumen of the distal portio n of the left mainstem bronchus, with a component extending into the left upper lobe bronchus, and a tiny component at the origin of the left lower lobe bronchus. The medial, proximal aspect of this m ass has a small metallic foreign body, perhaps a surgical clip. This mass has not changed in size. IMPRESSION: 1) acute infiltrate throughout basilar segment of left lower lobe: Left lower lobe pneumonia, probabl y bacterial. 2) the previously demonstrated 5 cm pleural-based pulmonary mass or consolidation at anterior segment of left upper lobe, is no longer present. 3) new finding of reticulonodular densities throughout anterior segment and lingula of left upper lob e, and numerous tiny cavitary pulmonary nodules throughout anterior segment and apical posterior segment of left upper lobe: Suggestive of different type of left upper lobe pneumonia with different organism. 4) no central pulmonary thromboembolism identified. Difficult to evaluate for peripheral pulmonary th romboembolism, especially at left lower lobe due to motion. 5) intraluminal intrabronchial mass beginning at bifurcation of left mainstem bronchus extending into left upper lobe bronchus. Unchanged in size. Probable biopsy clip medially.
[2020-04-03 16:42] LABS: CKMB 2.6 ng/mL (0-6.6)
[2020-04-03] MEDS ORDERED: Aspirin 325 MG TAB ONE (18:00)
[2020-04-03 19:03] LABS: Lactic Acid 2.3 mmol/L (0.5-2.2)
[2020-04-03 19:27] VITALS: BMI 27.0
[2020-04-03 20:14] LABS: Troponin I 0.029 ng/mL (< 0.028)
--- NOTE | 2020-04-03 20:47 | HP ---
CHIEF COMPLAINT: Left lower lobe pneumonia and COVID-19. HISTORY OF PRESENT ILLNESS: The patient is a 69-year-old male, who was in his usual state of good health playing golf on the day prior to admission. When on the day of admission, he woke up feeling weak, tired, having chills, and some mild shortness of breath. The patient ultimately went to [facility], where he was evaluated and found to be COVID positive. Additional workup revealed a left lower lobe infiltrate and he had an elevated D-dimer as expected with COVID. CT of the chest revealed an additional process and his left upper lobe felt to probably be the COVID pneumonia, in addition to regular pneumonia in left lower lobe. Because he became hypoxic, Dr. Baugh was contacted by [facility], Dr. Montesinos and Dr. Baugh accepted the patient to [facility] for further evaluation and further care. In the [place] emergency room, lactate had elevated from [facility] to [facility] as did his white count, which initially was lower and now 13.4 in [place]. There is also a definite bandemia noted. The patient is being placed in the hospital for continued antibiotics. Pulmonary consultation and serial re-evaluation. He has already been cultured and antibiotics begun. PAST MEDICAL HISTORY: Significant for asthma, dyslipidemia, BPH, hypertension, and colon cancer staged as a T3 N0 M0. Previous history of left lower pneumonia of this year that became entrapped and required decortication. He also has GERD. PAST SURGICAL HISTORY: Includes resection both right and left of his colon with chemoradiation, hernia repair x2 with a Bard propylene mesh, left-sided decortication of an entrapped lung, and open reduction and internal fixation of his shoulder. FAMILY HISTORY: Father is with heart disease. Mother is . Siblings are alive. Children are alive. He has one daughter . SOCIAL HISTORY: He is a former smoker. He states he quit in 1990. Drinks alcohol. Denies drugs. 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 He is . ALLERGIES: TO PENICILLIN. MEDICATIONS ON ADMISSION: Include; 1. Tramadol p.r.n. pain. 2. Tamsulosin 0.4 mg q.a.m. daily. 3. MiraLAX 17 g daily. 4. Singulair 10 mg daily. 5. Advair Diskus 10/50 one puff b.i.d. 6. Albuterol inhaler two puffs p.r.n. 7. Tylenol 1000 mg p.r.n. pain. 8. Amiodarone 200 mg q.a.m. daily. 9. 81 mg aspirin. 10. Atorvastatin 140 mg one tablet at bedtime. REVIEW OF SYSTEMS: CONSTITUTIONAL: Significant for fever, chills, weakness, cough, and dyspnea. HEENT: Denies drainage from eyes, ears, nose, or throat. CHEST: Has positive cough and shortness of breath. CARDIOVASCULAR: Denies chest pain or palpitations. GI: Denies nausea, vomiting, diarrhea. : Denies blood in urine or stool or painful urination. MUSCULOSKELETAL: Denies any new aches or pains. SKIN: No new rashes or lesions. NEUROLOGIC: No new areas of anesthesia, paresthesia, hypesthesia, or headaches. PHYSICAL EXAMINATION: VITAL SIGNS: Documented on the chart. GENERAL: This is a well-developed, well-nourished, elderly male, alert, oriented, cooperative, in no acute distress. HEENT: Normocephalic and atraumatic. Pupils with diminished reactivity to light at 2 mm bilaterally with arcus senilis bilaterally. Conjunctivae were clear. Nonicteric. TMs, nares, and pharynx are clear. NECK: Supple. Trachea midline. No mass. No bruit. CHEST: With audible rales in the left lower lobe with a healed scar noted. HEART: Regular rate and rhythm, tachycardic. ABDOMEN: Soft and nontender without hepatosplenomegaly. : Deferred. EXTREMITIES: Without clubbing, cyanosis, or edema. Normal range of motion present. Symmetrical muscular tone development noted in upper and lower extremities. SKIN: No acute rashes or lesions. NEUROLOGIC: Cranial nerves are intact. Gait and cerebellar function are normal. Sensory exam is grossly intact. Mental status is nonfocal and clear. LABORATORY DATA: Lab work thus far shows WBCs 13.4, hemoglobin 15.2, hematocrit 46.9 with platelets at 201 with a differential of 48 neutrophils, 35, bands, and 7 lymphocytes. The sodium is 138, potassium 4.9, chloride 104, CO2 of 22, BUN 17, creatinine 1.2 with GFR of 60, glucose 141, lactic acid 2.4, calcium 9.2. Liver functions unremarkable. CK-MB 2.6 with a troponin I of 0.037. His D-dimer is elevated at 2.5. The chest x-ray shows improvement in the patchy parenchymal opacity in the right lung suggesting improvement of the pneumonitis. The CT angiogram shows 1. acute infiltrate throughout the basilar segment left lower lobe, felt to be bacterial pneumonia. 2. 5 cm pleural-based pulmonary mass or consolidation is gone in that was previously present. 3. New finding of reticular nodular densities throughout the anterior segment and the live the left upper lobe and numerous tiny cavitary pulmonary nodules throughout, suggestive of a different type of left upper lobe pneumonia, probably COVID. 4. There are no DVTs and no PEs. No pulmonary thromboembolism is identified. 5. There is finally an intraluminal intrabronchial mass at the bifurcation of the left mainstem bronchus, but it is unchanged in size. A surgical clip is present. ASSESSMENT: 1. Left lower lobe pneumonia. 2. COVID pneumonia. 3. History of asthma. 4. History of colon cancer. 5. Hypertension. 6. Benign prostatic hyperplasia. 7. Intrabronchial mass - unchanged PLAN: Plan will be supportive care with neb treatments. We will continue IV antibiotics. Pulmonary consultation and serial re-evaluation. Also, mucolytics and antipyretics will be utilized. The face time with the patient is 45 minutes and the time to dictate research and prepare paperwork came to 1 hour and 10 minutes. Job ID: [id number] MTDD
[2020-04-03] MEDS ORDERED: Ondansetron PF 4 MG/2 ML Vial IVP PRN (22:19)
[2020-04-03] MEDS ORDERED: Atorvastatin Calcium 40 MG TAB PO SCH (22:30)
[2020-04-03] MEDS ORDERED: guaiFENesin ER 600 MG TAB PO SCH (22:30)
[2020-04-03] MEDS ORDERED: Zinc Sulfate 220 MG CAP PO SCH (22:30)
[2020-04-03] MEDS: cefTRIAXone\\ROCEPHIN 2 GM in Sodium Chloride 0.9% 100 ML IVPB SCH (22:35)
[2020-04-03] MEDS: Sodium Chloride 0.9% 1,000 ML IV SCH (22:37)
[2020-04-03 23:00] LABS: Troponin I 0.015 ng/mL (< 0.028)
[2020-04-03] MEDS ORDERED: Azithromycin 500 MG in Sodium Chloride 0.9% 250 ML 250 ML IVPB SCH (23:00)
[2020-04-04 05:14] LABS: #Basophils 0.1 thou/uL (0.0-0.2); #Lymphocytes 0.4 thou/uL (1.20-3.40); #Monocytes 0.6 thou/uL (0.11-0.59); #Neutrophils 10.9 thou/uL (1.40-6.50); %Basophils 1.1 % (0.0-1.0); %Eosinophils 0.1 % (0.0-10.0); %Lymphocytes 3.5 % (21.0-51.0); %Monocytes 4.9 % (0.0-10.0); %Neutrophils 90.3 % (42.0-75.0); Mean Corpuscular HGB CONC 32.3 g/dL (32.0-36.0); Mean Corpuscular Hemoglobin 29.5 pg (27.0-31.0); Mean Corpuscular Volume 91.2 fL (78.0-98.0); Mean Platelet Volume 7.6 fL (7.4-10.4); Platelet Count 166 thou/uL (130-400); RBC Distribution Width 15.5 % (11.5-14.5); Red Blood Cell (RBC) Count 4.43 mill/uL (4.70-6.10); White Blood Cell (WBC) Count 12.1 thou/uL (4.8-10.8)
[2020-04-04 05:45] LABS: Anion Gap 14 mmol/L (10-20); BUN (Urea Nitrogen) 18 mg/dL (8.4-25.7); Calc. Creatinine Clearance 84 mL/min (70-130); Calcium 8.6 mg/dL (7.8-10.44); Carbon Dioxide 22 mmol/L (23-31); Chloride 106 mmol/L (98-107); Glucose 170 mg/dL (80-115); Potassium 4.3 mmol/L (3.5-5.1); Sodium 138 mmol/L (136-145)
[2020-04-04] MEDS: Albuterol 200 PUFF (6.7GM INHALER) INH SCH ×4 (06:22→18:17)
[2020-04-04] MEDS: Polyethylene Glycol 3350 17 GM Packet PO SCH (08:05)
[2020-04-04] MEDS: Enoxaparin Sodium 40 MG/0.4 ML SYRINGE SC SCH (08:05)
[2020-04-04] MEDS: Tamsulosin HCl 0.4 MG CAP PO SCH (08:06)
[2020-04-04] MEDS: Zinc Sulfate 220 MG CAP PO SCH (08:06)
[2020-04-04] MEDS: Montelukast Sodium 10 mg Tablet PO SCH (08:06)
[2020-04-04] MEDS: Amiodarone 200 MG TAB PO SCH (08:06)
[2020-04-04] MEDS: Aspirin 81 mg Enteric Coated Tablet PO SCH (08:06)
[2020-04-04] MEDS: guaiFENesin ER 600 MG TAB PO SCH ×2 (08:06→20:02)
[2020-04-04] MEDS: Sodium Chloride 0.9% 1,000 ML IV SCH ×3 (08:08→22:49)
[2020-04-04] MEDS ORDERED: Dexamethasone 4 mg/ml Vial SLOW IVP SCH (11:15)
[2020-04-04] MEDS ORDERED: Hydroxychloroquine Sulfate 200 MG TAB PO SCH (11:15)
[2020-04-04] MEDS: Acetaminophen 325 MG TAB PO PRN ×2 (11:25→18:13)
[2020-04-04] MEDS: Hydroxychloroquine Sulfate 200 MG TAB PO SCH (20:05)
[2020-04-04] MEDS: cefTRIAXone\\ROCEPHIN 2 GM in Sodium Chloride 0.9% 100 ML IVPB SCH (20:30)
[2020-04-04] MEDS ORDERED: Atorvastatin Calcium 40 MG TAB PO SCH (21:00)
--- NOTE | 2020-04-04 21:22 | CON ---
DATE OF CONSULTATION: 04/04/2020 CHIEF COMPLAINT: COVID. PRESENT ILLNESS: Mr. Mcginnis is a 69-year-old gentleman, known to the Pulmonary Service from admission in March and April a year ago. At that time, he was admitted with a left lower lung pneumonia and empyema necessitating decortication. He has followed up with Dr. Ortiz, most recently about three weeks ago, at which time, his x-ray did not show a dramatic residual pleural effusion/thickening or other underlying pulmonary process. He states that he was golfing on when he began to feel badly. He actually quit his round and went home. He felt worse on Monday and went to [facility] where a COVID test was positive and chest x-ray suggested a left lower lung infiltrate. He had an elevated D-dimer. He was reportedly hypoxemic, although undefined. He was transferred to the [place] emergency room for evaluation. In the emergency room, the patient had a mildly elevated lactate. He had very minimal leukocytosis of 13,000. He was not hypoxemic. He had a CT of the chest demonstrating areas of consolidation in the lingula and in the left lower lung, each of which appeared slightly different suggesting distinct underlying processes. He has subsequently been admitted to the hospital. Since admission, he has not required antibiotics. He is not having any cough or sputum. He has not had any objective fevers or chills. He denies any nausea, vomiting, and has had no difficulty with smell or taste. He has been placed on empiric antibiotic therapy as well as on empiric hydroxychloroquine. SOCIAL HISTORY: The patient is a 69-year-old gentleman. He has intolerance to penicillin. He is a former smoker. HOME MEDICATIONS: Include, 1. Tramadol p.r.n. 2. Flomax daily. 3. MiraLAX daily. 4. Singulair daily. 5. Advair b.i.d. 6. Albuterol p.r.n. 7. Amiodarone 200 daily. 8. Aspirin 81 daily. 9. Atorvastatin. PAST MEDICAL HISTORY: Remarkable for hypertension. He has remote smoking history with some COPD. He had a left pneumonia with empyema necessitating decortication, April 2019. Amiodarone suggests the diagnosis of atrial fibrillation, although not specifically mentioned by the patient. He has had a previous colon cancer with resection and radiation. He questions whether this might be related to his prior use of Tagamet. REVIEW OF SYSTEMS: Remarkable as above. FAMILY HISTORY: Noncontributory. His and [id number] live in the residence with him and neither has experienced COVID symptoms. PHYSICAL EXAMINATION: VITAL SIGNS: Blood pressure ranges from 124/69 to 142 systolic. He has been afebrile. Heart rate 98, respiratory rate 19, saturation 96% on room air. BMI is 27. He is awake, alert, and in no distress. HEENT: Shows no oropharyngeal Addie. He has no adenopathy or JVD. LUNGS: Show rhonchi in the left posterior base. There is no audible wheezing. HEART: Regular rate and rhythm. ABDOMEN: Soft. Bowel sounds are normal. He has no organomegaly. EXTREMITIES: He has no cyanosis, clubbing, or edema. He has no cords or tenderness. He has no focal findings. IMAGING AND LABORATORY DATA: Chest x-ray series dating back a year has been reviewed. His CAT scan shows a consolidative processes involving both the lingula and left lower lung. They do have somewhat different features, but I find that to be a very unreliable sign that they truly represent a different pathologic processes. I do not see a CAT scan following his decortication and I actually question how much of one or the other may be related to his prior pulmonary condition. White count today 12,100, hemoglobin is 13 with hematocrit of 40.4, and platelet count of 166,000. His differential diagnosis includes 48 neutrophils and 35 bands. His electrolytes unremarkable and his blood sugar ranges from 140-170. IMPRESSION: The patient presents with some mild shortness of breath, consolidative findings on x-ray and a significant elevation in band count on his CBC. This would be more suggestive of a bacterial infection than COVID. I question whether his COVID test may be a false positive, although without confirmatory test is difficult to truly know. I agree with use of empiric antibiotic therapy. I personally find no indication or benefit associated with hydroxychloroquine for the treatment of COVID infections. Use is deferred to his primary doctor. He is not requiring supplemental oxygen and likely could be discharged home to complete a course of antibiotics. He has been alerted that often patients with COVID pneumonia will demonstrate deterioration underlying status anywhere from 5-10 days after symptom onset and he may require readmission. He certainly is a candidate for followup x-ray to demonstrate radiographic clearing and he should make and keep that appointment with Dr. Ortiz. He and I have talked about possible timing for testing with his family members. RECOMMENDATIONS: I agree with empiric antibiotics for presumed bacterial pneumonia. I personally find no indication for the use of hydroxychloroquine in the treatment of COVID pneumonia. He is not requiring oxygen. He can probably be discharged in 24 hours to follow up with Dr. Ortiz. He will need serial x-rays to demonstrate radiographic clearing. I have my doubts as to whether his COVID test is a true positive. He is aware that he will need to isolate from his family at least until that can be clarified or until he is out of the infectious window. Thank you for this consultation. Pulmonary Service will continue to follow up. Job ID: [id number]
[2020-04-05] MEDS ORDERED: Albuterol 200 PUFF (6.7GM INHALER) INH PRN (03:56)
[2020-04-05 04:53] LABS: #Lymphocytes 0.7 thou/uL (1.20-3.40); #Monocytes 0.9 thou/uL (0.11-0.59); #Neutrophils 11.9 thou/uL (1.40-6.50); %Basophils 0.1 % (0.0-1.0); %Eosinophils 0.1 % (0.0-10.0); %Lymphocytes 5.5 % (21.0-51.0); %Monocytes 6.3 % (0.0-10.0); Mean Corpuscular HGB CONC 32.6 g/dL (32.0-36.0); Mean Corpuscular Hemoglobin 29.7 pg (27.0-31.0); Mean Corpuscular Volume 91.3 fL (78.0-98.0); Mean Platelet Volume 7.7 fL (7.4-10.4); Platelet Count 191 thou/uL (130-400); RBC Distribution Width 15.4 % (11.5-14.5); Red Blood Cell (RBC) Count 4.36 mill/uL (4.70-6.10); White Blood Cell (WBC) Count 13.5 thou/uL (4.8-10.8)
[2020-04-05 05:09] LABS: Lactic Acid 2.4 mmol/L (0.5-2.2)
[2020-04-05 05:13] LABS: Anion Gap 16 mmol/L (10-20); BUN (Urea Nitrogen) 19 mg/dL (8.4-25.7); Calc. Creatinine Clearance 88 mL/min (70-130); Calcium 8.3 mg/dL (7.8-10.44); Carbon Dioxide 21 mmol/L (23-31); Chloride 109 mmol/L (98-107); Glucose 124 mg/dL (80-115); Potassium 4.2 mmol/L (3.5-5.1); Sodium 142 mmol/L (136-145)
[2020-04-05] MEDS: Albuterol 200 PUFF (6.7GM INHALER) INH SCH ×2 (06:49→10:48)
[2020-04-05] MEDS: Sodium Chloride 0.9% 1,000 ML IV SCH (08:24)
[2020-04-05] MEDS: Zinc Sulfate 220 MG CAP PO SCH (08:25)
[2020-04-05] MEDS: guaiFENesin ER 600 MG TAB PO SCH (08:25)
[2020-04-05] MEDS: Hydroxychloroquine Sulfate 200 MG TAB PO SCH (08:25)
[2020-04-05] MEDS: Aspirin 81 mg Enteric Coated Tablet PO SCH (08:25)
[2020-04-05] MEDS: Tamsulosin HCl 0.4 MG CAP PO SCH (08:25)
[2020-04-05] MEDS: Amiodarone 200 MG TAB PO SCH (08:26)
[2020-04-05] MEDS: Enoxaparin Sodium 40 MG/0.4 ML SYRINGE SC SCH (08:26)
[2020-04-05] MEDS: Polyethylene Glycol 3350 17 GM Packet PO SCH (08:26)
[2020-04-05] MEDS: Montelukast Sodium 10 mg Tablet PO SCH (08:26)
[2020-04-05] MEDS ORDERED: Dexamethasone 4 mg/ml Vial SLOW IVP SCH (09:00)
[2020-04-05 11:15] VITALS: BP 140/82; TEMP 98.3
--- NOTE | 2020-04-05 11:22 | DIS ---
DATE OF ADMISSION: 04/03/2020 DATE OF DISCHARGE: 04/05/2020 CHIEF COMPLAINT ON ADMISSION: Sepsis, bacterial pneumonia, mild hypoxia, COVID pneumonia. History and physical previously had been dictated, I will resume from there. HOSPITAL COURSE: The patient was placed in a telemetry bed, [facility], where his heart could be monitored as well as isolation for COVID precautions because of the bacterial pneumonia present with a lot of bandemia, Rocephin was started at 2 g a day along with Zithromax 500 daily. Then he was started on hydroxychloroquine and at which time the Zithromax was discontinued because of possible QT prolongation and he was switched to doxycycline. In the first 24 hours, the patient did great. He had no specific complaints. No fever. Temperature max was 99.2. His white count had diminished to 12.1. D-dimer had gone down as well. Blood cultures were negative. Physical exam had audible rales in left lower lobe. Also, the manager product management, Dr. Coóln saw the patient during that time, suggesting that if he continues to do well, he can go home on 04/05. Indeed on 04/05, he had a good night. He rested well, had some nausea after taking the doxycycline, but otherwise had no other specific problems. His D-dimer continued to go down to 1.25, although his white count did elevate somewhat to 13.5, that may be the effect of the Decadron at this point, but he looked good. The exam continued to show rales in the left lower lobe and diminished breath sounds in the left upper lobe. There was a question of whether his COVID test was a false positive because he has done so well and his remains, what we feel like she is COVID negative. She has not gone for testing, but because he has done so well, the manager product management wants him retested and he is stable to go home on 04/05/2020. DISCHARGE DIAGNOSES: 1. Left lower lobe bacterial pneumonia. 2. Left upper lobe developing infiltrate, probably COVID pneumonia. 3. History of asthma. DISCHARGE MEDICATIONS: At the time of discharge will be, 1. Prednisone taper 10 mg b.i.d. for 3 days and daily for 4 days. 2. Doxycycline 100 mg b.i.d. 3. Hydroxychloroquine 200 mg b.i.d. 4. Zinc 50 mg b.i.d. 5. Cefdinir 300 mg b.i.d. 6. Vitamin D 50,000 IUs three times a week. 7. Zofran ODT p.r.n. nausea. His COVID test will be repeated prior to discharge. If he is positive, he will follow up with Dr. Baugh by Telehealth in [address] Ortiz in 2 weeks. If he is COVID negative on repeat and he will follow up in the office with Dr. Baugh in [address] Ortiz as planned in 2 weeks. The time required to review the chart, examine the patient, prepare the chart for discharge, reconcile all his medication and have [id number] counseling came to 45 minutes with a total discharge time including dictation at 1 hours and he is discharged in stable condition. Job ID: [id number] [facility]
[2020-04-05] MEDS: Acetaminophen 325 MG TAB PO PRN (12:49)
[2020-04-05 17:11] LABS: SARS-CoV-2 IgG Ab Non-Reactive (NonReactive); SARS-CoV-2 IgG Index 0.02 S/CO (< 1.40)
[2020-04-05 19:24] LABS: SARS-CoV-2 MS2 Positive; SARS-CoV-2 N Gene Negative; SARS-CoV-2 S Gene Negative; SARS-CoV-2 by NAA Not Detected (NotDetected); SARS-CoV-2 orf1ab Negative
--- NOTE | 2020-04-09 15:08 | PQF ---
CLINICAL DOCUMENTATION CLARIFICATION FORM: Dear : ANDREA MANZO MD Date / Time: 04/09/2020 Please exercise your independent, professional judgment in responding to the clarification form. Clinical indicators are provided on the bottom of this form for your review Please check appropriate box(es): [ x ] Sepsis due to: Pneumonia [ ] Severe sepsis with associated acute organ dysfunction: [ ] Acute Respiratory Failure [ ] Acute Kidney injury w/o ATN [ ] Acute Kidney Injury w ATN [ ] Encephalopathy (metabolic) (septic) [ ] Disseminated Intravascular Coagulopathy (DIC) [ ] Hepatic Failure [ ] Additional/Other: please specify: [ ] Septic Shock [ ] Localized infection without sepsis [ ] SIRS due to non-infectious process (please specify etiology) [ ] with organ dysfunction [ ] without organ dysfunction [ ] Other diagnosis (Please specify if any) [ ] Unable to determine Physician Signature: Date/Time: For continuity of documentation, please document condition throughout progress notes and discharge summary. Thank You. To be completed by CDI/Coding staff for physician review: Present Clinical Indicators - Signs / Symptoms / Labs Results and Location in Medical Record [ ] Altered mental status, increased confusion, obtunded [x] Fever or hypothermia (<96.8 F/36 C or > 100.4 F/38C) Fever H&P on 04/03 [ ] Respiratory rate >20/min, hypoxemia, and or hypercapnia [x] Heart Rate/Tachycardia (>90 bpm), SBP<100mmHg 100 vitals on 04/03 [x] Chief complain: Sepsis, COVID pneumonia Discharge summary on 04/05 [x] Metabolic acidosis Lactic Acid >2mmol/L OR 36mg/dL, Lactic acid 2.4 h laboratory on 04/03 [ ] Oliguria , increase BUN/Cr, decreased GFR, elevated liver enzymes [ ] Coag abnormalities, thrombocytopenia plts <100k [ ] Shock-hypotension resistant to IV fluid boluses [x] WBC count (>12,000/mm^4 or <4000/mm^3 or 70% neuts, 10% bands) WBC-13.5 Laboratory on 04/05 [x] Diagnosis, primary: Sepsis ED provider report on 04/03 [ ] Positive blood cultures Present Risk Factors Results and Location in Medical Record [ ] Infection/Bacteremia [x] Covid Pneumonia ED provider report on 04/03 [ ] Surgery / surgical instrumentation / trauma Ruptured/perforated bowel, ruptured appendix [ ] Immunosuppression [x] Advancing Age 69 yrs ED provider report on 04/03 Present Treatments Results and Location in Medical Record [ ] Initiation Sepsis Protocol ICU [ ] Daily CBC, blood/sputum/wound cx [ ] ID Consult [ x] Rocephin 2gm IV Medication from 04/03 to 04/05 [ x] Azithromycin 500mg IV Medication on 04/03,04/04 [ ] Vasopressors, meds [ ] Consultants; ID, GI, Pulmonary, Hematology CDS/Molding Plasterer Signature: INDER Phone #: Date/Time: 04/09/2020 This is a permanent part of the Medical Record [facility]
== END 2020-04-05 13:40 | disposition home or self-care (01) | DRG 871 ==
LOC: ERS 15:12 → 2SW 19:06
PROVIDERS: ADMIT Specialist; ATTEND Specialist
PROC: 8E0ZXY6 Isolation (ICD-10-PCS; principal; 2020-04-03)
DX: A41.89 Other specified sepsis (principal); U07.1 COVID-19; J15.9 Unspecified bacterial pneumonia; J12.89 Other viral pneumonia; K21.9 Gastro-esophageal reflux disease without esophagitis; E78.5 Hyperlipidemia, unspecified; N40.0 Benign prostatic hyperplasia without lower urinary tract symptoms; I10 Essential (primary) hypertension; J45.909 Unspecified asthma, uncomplicated; Z98.890 Other specified postprocedural states; Z87.891 Personal history of nicotine dependence; Z90.49 Acquired absence of other specified parts of digestive tract; Z85.038 Personal history of other malignant neoplasm of large intestine; Z92.3 Personal history of irradiation; Z88.0 Allergy status to penicillin; Z79.899 Other long term (current) drug therapy; Z79.82 Long term (current) use of aspirin; Z79.51 Long term (current) use of inhaled steroids; R09.02 Hypoxemia; Z79.891 Long term (current) use of opiate analgesic; Z82.49 Family history of ischemic heart disease and other diseases of the circulatory system
CPT/HCPCS: 36415; 71275; 80048; 80053; 82553; 82728; 83605; 84484; 85025; 85379; 86769; 87040; 87635; 93005; 93010; 96374; J0456; J0696; J1100; J1650; J2405; J3490; J7050; Q9967; U0003

== ENCOUNTER 2020-04-28 09:57 | Outpatient (CLI) | payer MEDICARE, OTHER ==
--- NOTE | 2020-04-28 10:25 | RAD ---
EXAM: Two views chest PROVIDED CLINICAL HISTORY: Dyspnea COMPARISON: None FINDINGS: Cardiac and mediastinal silhouette appears within normal limits. Chronic appearing lung changes are r edemonstrated. No focal consolidation is evident. Atherosclerosis is again seen. Surgical clip is demonstrated in the region of the left main bronchus. No pleural fluid or pneumothorax apparent. IMPRESSION: No evidence for an acute cardiopulmonary process.
== END 2020-04-28 09:58 | disposition home or self-care (01) ==
LOC: BICRAD 09:57
PROVIDERS: ATTEND Internal Medicine Critical Care Medicine
DX: R06.00 Dyspnea, unspecified (principal)
CPT/HCPCS: 71046

== ENCOUNTER 2020-08-25 11:40 | Outpatient (CLI) | payer MEDICARE, OTHER | END 2020-08-25 11:41 | disposition home or self-care (01) | LOC: BICRAD 11:40 | PROVIDERS: ATTEND Internal Medicine Critical Care Medicine | DX: R06.00 Dyspnea, unspecified (principal) | CPT/HCPCS: 71046 ==

== ENCOUNTER 2021-10-21 09:01 | Outpatient (CLI) | payer MEDICARE, OTHER | END 2021-10-21 09:02 | disposition home or self-care (01) | LOC: BICRAD 09:01 | PROVIDERS: ATTEND Internal Medicine Critical Care Medicine | DX: R06.00 Dyspnea, unspecified (principal); J98.4 Other disorders of lung | CPT/HCPCS: 71046 ==

== ENCOUNTER 2022-12-06 09:22 | Outpatient (CLI) | payer MEDICARE, OTHER | END 2022-12-06 09:23 | disposition home or self-care (01) | LOC: RAD 09:22 | PROVIDERS: ATTEND Internal Medicine Critical Care Medicine | DX: R06.00 Dyspnea, unspecified (principal); R91.1 Solitary pulmonary nodule | CPT/HCPCS: 71046 ==

== ENCOUNTER 2023-01-26 13:26 | Outpatient (CLI) | payer MEDICARE, OTHER | END 2023-01-26 13:27 | disposition home or self-care (01) | LOC: RAD 13:26 | PROVIDERS: ATTEND Internal Medicine Critical Care Medicine | DX: R06.00 Dyspnea, unspecified (principal) | CPT/HCPCS: 71046 ==

== ENCOUNTER 2023-04-03 12:57 | Outpatient (CLI) | payer MEDICARE, OTHER | END 2023-04-03 12:58 | disposition home or self-care (01) | LOC: RAD 12:57 | PROVIDERS: ATTEND Internal Medicine Critical Care Medicine | DX: R06.00 Dyspnea, unspecified (principal); J44.9 Chronic obstructive pulmonary disease, unspecified | CPT/HCPCS: 71046 ==

== ENCOUNTER 2023-10-16 13:13 | Outpatient (CLI) | payer MEDICARE, OTHER | END 2023-10-16 13:14 | disposition home or self-care (01) | LOC: RAD 13:13 | PROVIDERS: ATTEND Internal Medicine Critical Care Medicine | DX: R06.00 Dyspnea, unspecified (principal) | CPT/HCPCS: 71046 ==

== ENCOUNTER 2024-04-01 13:54 | Outpatient (CLI) | payer MEDICARE, OTHER | END 2024-04-01 13:55 | disposition home or self-care (01) | LOC: RAD 13:54 | PROVIDERS: ATTEND Internal Medicine Critical Care Medicine | DX: R06.00 Dyspnea, unspecified (principal); J43.9 Emphysema, unspecified | CPT/HCPCS: 71046 ==